=== PATIENT | male | born 1960 | race Caucasian/White ===

== ENCOUNTER → 2018-05-26 08:01 | Outpatient (CLI) | payer OTHER, SELFPAY ==
[2018-05-26 10:13] LABS: Alanine Aminotransferase 40 IU/L (21-72); Albumin 4.3 g/dL (3.5-5.0); Albumin Globulin Ratio 1.4 (1.0-2.8); Alkaline Phosphatase 97 U/L (38-126); Aspartate Aminotransferase 27 IU/L (17-59); BUN Creatinine Ratio 13.3 (6-22); Bilirubin Total 0.9 mg/dL (0.2-1.3); Blood Urea Nitrogen 12 mg/dL (9-20); Calcium 9.3 mg/dL (8.4-10.2); Carbon Dioxide 33 mmol/L (22-32); Chloride 102 mmol/L (98-107); Cholesterol 224 mg/dL (140-199); Estimated Glomerular Filt Rate > 60.0 mL/min (>60); Glucose 118 mg/dL (70-100); HDL Cholesterol 35 mg/dL (40-60); HEMOLYSIS < 15 (0-50); LDL Cholesterol Calculated 136 mg/dL (<100); Potassium 4.2 mmol/L (3.4-5.1); Sodium 144 mmol/L (137-145); Total Protein 7.3 g/dL (6.3-8.2); Triglycerides 265 mg/dL (35-150)
[2018-05-26 10:30] LABS: Free T4, Direct Thyroxine 0.53 ng/dL (0.78-2.19)
== END ==
PROVIDERS: PCP Physician Assistant; Visit Provider Physician Assistant
DX: E03.9 Hypothyroidism, unspecified (principal); E78.2 Mixed hyperlipidemia
CPT/HCPCS: 36415; 80053; 80061; 84439; 84443

== ENCOUNTER → 2018-07-20 07:01 | Outpatient (CLI) | payer OTHER, SELFPAY ==
[2018-07-20 10:51] LABS: Cholesterol 175 mg/dL (140-199); Glucose 104 mg/dL (70-100); HDL Cholesterol 31 mg/dL (40-60); LDL Cholesterol Calculated 96 mg/dL (<100); Triglycerides 242 mg/dL (35-150)
[2018-07-20 11:16] LABS: Thyroid Stimulating Hormone 1.93 uIU/mL (0.47-4.68)
== END ==
PROVIDERS: PCP Physician Assistant; Visit Provider Physician Assistant
DX: E78.2 Mixed hyperlipidemia (principal); E03.9 Hypothyroidism, unspecified
CPT/HCPCS: 36415; 80061; 82947; 84443

== ENCOUNTER → 2018-12-27 13:09 | Outpatient (CLI) | payer OTHER, SELFPAY ==
--- NOTE | 2018-12-27 13:11 | DI.RAD.S_ITS ---
PROCEDURE: FL BARIUM SWALLOW W SPEECH INDICATIONS: Dysphagia liquids and solids TECHNIQUE: Examination was conducted in conjunction with speech pathology per standard protocol. In the lateral projection, filming was performed of the patient swallowing. AP projection filming may also be performed with patient swallowing. COMPARISON: None. FINDINGS: Function: The oral preparatory phase appears normal, with proper containment. The subsequent oral propulsive phase, pharyngeal phase, and esophageal phase of swallowing also appear normal with all proffered substances. A few instances of flash laryngeal penetration. No definite tracheal aspiration. There was mild vallecular pooling. There was normal passage of a calibrated barium tablet into the stomach. Morphology: No cricopharyngeal bar is identified. No cervical esophageal webs. No Zenker's diverticulum. No strictures. IMPRESSION: Occasional flash laryngeal penetration Dictated by: Zhen Wilson M.D. on 12/27/2018 at 15:08 Approved by: Zhen Wilson M.D. on 12/27/2018 at 15:09
--- NOTE | 2018-12-27 18:32 | ST.SWALLOW ---
Care Team Visit Care Team Role Provider Type Yashira Chambers PA-C Attending Provider Advanced Outbound Sales Representative Primary Care Provider Specialty: Medical Address: [address] [place] [address], [id number] Email: [email or web address] Modified Barium Swallow Study ACTIVITIES DIRECTOR Modified Barium Swallow Study Start: 12/27/18 14:13 Freq: Status: Active Protocol: Document 12/27/18 14:14 LNK (Rec: 12/27/18 14:52 LNK [email or web address]) Modified Barium Swallow Study Total Time Visit Start Time 01:30 Visit Stop Time 14:00 Total Visit Minutes 30 Referral Referring Physician Yashira Chambers PA-C Reason for Referral dysphagia Setting Setting Outpatient Care Patient Information Identification Type Name Other Patient History Pt is a 58 year old male who presented for a Modified Barium Swallow Study at the referral of Yashira Chambers PA-C . Pt described difficulty with swallowing solids. He described a sticking sensation in his throat with episodes of lettuce, pills or meats getting stuck to where he is unable to breathe and he begins to panic. He also described liquids not being swallowed, then coughing all of the liquids out at once. Pt noted that this has been ongoing for at least 10 years and it seems to be progressively worsened over the years. The pt described that he was having things checked out as he recently lost 3 family member to cancer: his father to lung, brain and neck cancer , his mother to colon cancer and his brother to esophageal cancer. Subjective Observations Pt was seated in the floroscopy chair Patient Positioning Position View Lat-A/P Imaging Lateral View Textures Administered Trials Presented Thin Liquid via Spoon Thin Liquid via Cup Regular Textures Barium Tablet Oral Phase Source: MBSIMP (TM) (C) Bolus Specific Scoring Grid Lip Closure WFL A/P Lingual Propulsion Delay No Oral Residue Minimal Impairment Residue Clearing WFL Nasal Regurgitation No: Pt did c/o of occasional nasal regurgitation Pharyngeal Phase Source: MBSIMP (TM) (C) Bolus Specific Scoring Grid Soft Palate Elevation WFL Residue Along the Tongue Base Yes Clearance of Residue Along Tongue Base WFL Laryngeal Elevation WFL Anterior Hyoid Movement WFL Epiglottic Range of Motion WFL Vallecular Residue Yes Clearance of Vallecular Residue WFL Laryngeal Vestibular Closure WFL Pharyngeal Stripping Wave WFL Pharyngeal Contraction WFL Posterior Pharyngeal Wall Residue No Upper Esophageal Sphincter Opening WFL Residue in the Pyriform Sinuses unable to visualize Esophageal Clearance Upright Position WFL Pharyngoesophageal Backflow Observed No Additional Pharyngeal Phase Observations Pt's pharyngeal phase demonstrated some premature spillage to the valleculla observed. Vallecular pooling was observed. Flash penetration into the laryngeal vestibule occurred with no overt aspiration. Periodically throughout the MBS the pt indicated that he was feeling something stuck in his throat, consistently pointing to the area near the thyroid notch. A/P View Textures Administered Trials Presented Thin Liquid via Spoon Regular Textures Barium Tablet A/P View Observations Pharyngeal Contraction WFL Esophageal Function Slowed Clearing Esophageal Clearance Upright Position Minimal Impairment Additional Observations Observation of liquid and solid esophageal clearing appeared to be functional. The barium tablet was observed to pass through the lower third of the esophagus, stopping for ~10 seconds, then passing into the stomach Clinical Impressions Dysphagia Type No apparent oral or pharyngeal phases of dysphagia Findings The pt presented with oral and pharyngeal phases of swallowing that were observed to be WFL. However, the pt was c/o something sticking in his throat several times during the assessment. Given the pt's family history of cancer, and losing three family members to cancer, the pt is concerned. He has reported that he has had episodes of being unable to breath when eating with panic. He appears to be anxious regarding these episodes. It is recommended that the pt be referred for GI consult as well as ENT consult. Possible etiologies, may be PVCD vs esophageal phase dysphagia. Possibly a referral for further imaging of the upper pharynx to s/o anatomical anomalies. Oupatient ST is recommended for laryngopharyngeal exercises, safe swallow strategies and further assessment as needed. Rehabilitation Potential Excellent Patient Appropriate for Therapy Yes Recommendations Diet Liquids Order Thin Diet Order Regular Medication Recommendation Whole in Carrier Comments Pt reports that he only takes medications in a carrier Treatment Plan Therapy Recommendations Outpatient Speech Therapy Recommended Referrals GI Consult ENT Consult Additional Recommendations/Comments Reviewed the findings and recommendations with the patient, who indicated he understood.
== END ==
PROVIDERS: PCP Physician Assistant; Visit Provider Physician Assistant
DX: R13.10 Dysphagia, unspecified (principal)
CPT/HCPCS: 74230; 92611

== ENCOUNTER → 2019-01-11 10:01 | Outpatient (CLI) | payer OTHER, SELFPAY ==
[2019-01-13 21:24] LABS: Sex Hormone Binding Globulin 26 nmol/L (22-77); Testosterone, Bioavailable 78.3 ng/dL (110.0-575.0); Testosterone, Total 263 ng/dL (250-1100); Testosterone,Free 40.6 pg/mL (46.0-224.0)
== END ==
PROVIDERS: PCP Physician Assistant; Visit Provider Physician Assistant
DX: R79.89 Other specified abnormal findings of blood chemistry (principal)
CPT/HCPCS: 36415; 82040; 84270; 84403

== ENCOUNTER 2019-01-24 13:13 | Outpatient (RCR) | payer OTHER, SELFPAY ==
--- NOTE | 2019-06-01 14:12 | ST.OPDS ---
Care Team Visit Care Team Role Provider Type Yashira Chambers PA-C Attending Provider Advanced Plant And Machinery Valuer Primary Care Provider Address: [address] [place] [address], [id number] MOTORCYCLE REPAIR SHOP SUPERVISOR Treatment Note MOTORCYCLE REPAIR SHOP SUPERVISOR Treatment Note Start: 01/24/19 15:28 Freq: Status: Active Protocol: Document 06/01/19 14:08 DENNIS (Rec: 06/01/19 14:09 DENNIS [email or web address]) Speech Pathology Treatment Note Visit Information Plan of Care Dates 01/24/19 - 04/18/19 Insurance Information [employer] $40 copay Visit Type Note Type Discharge Summary General Information General Information 58-yr-old male who complains of sticking sensation with oral intake (solids, liquids and pills), resulting in discomfort and frequent fear of choking. Baseline diet is regular texture and thin liquids; however, the pt avoids foods such as salad and bread and requires pills in yogurt d/t swallow difficulties. He reported swallow difficulties began about 10 yrs ago and have worsened in the last 2-3 years , increasing his anxiety with oral intake. Modified Barium Swallow Study was performed which revealed generally normal swallow function with no significant pharyngeal residue and normal esophageal transit time with exception of 13 mm barium tablet, which remained superior to LES for ~10 sec prior to emptying into stomach . Flash penetration without aspiration was noted. The pt was reported to c/o sticking sensation throughout the study without sticking or residue visually observed by MOTORCYCLE REPAIR SHOP SUPERVISOR/ Radiologist. Referrals were recommended to GI and ENT, and today the pt reports he has an appointment with ENT scheduled. He informed that he had been seeing a psychiatrist in the past but had a negative reaction to prescribed medications, and that now he uses natural supplements such as [place]'s Wart to ease anxiety with some success. The pt has a family history of cancer and has lost 3 family members to cancer, including a brother who from esophageal cancer, which increases the pt's concern. 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 Past medical history is also significant for GERD, arthritis, back pain, depression, hearing problems, psychological disorder including high anxiety, thyroid disorder, and TBI. Details of TBI were not obtained and will be obtained at next session. Additionally, the pt reports frequent flare up of nerves resulting in bodily twitches, which were observed 3-4 times during today's evaluation. He also reported episodes in which it feels like an earthquake is happening where the pt literally feels unbalanced as if the earth is moving below his feet. In response, he looks to see if others around him are concerned and often needs to hold onto something to balance himself. Subjective Observations/Patient Presentation This pt was last seen for clinical swallow evaluation on 01/24/19. Dysphagia therapy was recommended; however, the pt has not returned for treatment. He is discharged from skilled intervention at this time. Chief Complaint(s) Swallowing Objective Short Term Goals 1. The pt will perform safe swallow strategies, including breathing techniques to remain calm in presence of sticking sensation, to reduce anxiety with oral intake and reduce risk of aspiration. Mcc Goals 1. The pt will perform swallow exercises independently to improve function of swallow mechanism to reduce sticking sensation and risk of aspiration. 2. The pt will tolerate regular diet and thin liquids without overt s/sx of aspiration to maintain quality of life and meet his nutrition and hydration needs. Plan Therapy Recommendations Discharge from Speech Therapy
== END 2019-06-02 09:34 | disposition home or self-care (01) ==
LOC: SP 13:13
PROVIDERS: PCP Physician Assistant; Visit Provider Physician Assistant
DX: R13.10 Dysphagia, unspecified (principal)
CPT/HCPCS: 92526; 92610

== ENCOUNTER → 2019-04-26 06:49 | Outpatient (CLI) | payer OTHER, SELFPAY ==
[2019-04-29 15:29] LABS: Prolactin 10.1 ng/mL (3.7-17.9)
== END ==
PROVIDERS: PCP Physician Assistant; Visit Provider Urology
DX: R79.89 Other specified abnormal findings of blood chemistry (principal)
CPT/HCPCS: 36415; 83001; 84146; 84153; 84403

== ENCOUNTER → 2019-05-02 07:15 | Outpatient (CLI) | payer OTHER, SELFPAY | PROVIDERS: Family Provider Physician Assistant; PCP Physician Assistant; Visit Provider Urology | DX: E29.1 Testicular hypofunction (principal) | CPT/HCPCS: 36415 ==

== ENCOUNTER → 2019-05-11 07:28 | Outpatient (CLI) | payer OTHER, SELFPAY | PROVIDERS: Family Provider Physician Assistant; PCP Physician Assistant; Visit Provider Urology | DX: E29.1 Testicular hypofunction (principal) | CPT/HCPCS: 84402 ==

== ENCOUNTER → 2019-07-12 07:08 | Outpatient (CLI) | payer OTHER, SELFPAY ==
[2019-07-12 08:52] LABS: Alanine Aminotransferase 37 IU/L (21-72); Albumin 4.1 g/dL (3.5-5.0); Albumin Globulin Ratio 1.4 (1.0-2.8); Alkaline Phosphatase 103 U/L (38-126); Aspartate Aminotransferase 27 IU/L (17-59); BUN Creatinine Ratio 16.3 (6-22); Bilirubin Total 0.8 mg/dL (0.2-1.3); Blood Urea Nitrogen 13 mg/dL (9-20); Carbon Dioxide 30 mmol/L (22-32); Chloride 104 mmol/L (98-107); Cholesterol 175 mg/dL (140-199); Estimated Glomerular Filt Rate > 60.0 mL/min (>60); Glucose 131 mg/dL (70-100); HDL Cholesterol 32 mg/dL (40-60); HEMOLYSIS < 15 (0-50); LDL Cholesterol Calculated 92 mg/dL (<100); Potassium 4.3 mmol/L (3.4-5.1); Sodium 143 mmol/L (137-145); Total Protein 7.1 g/dL (6.3-8.2); Triglycerides 253 mg/dL (35-150)
[2019-07-12 09:13] LABS: Thyroid Stimulating Hormone 3.24 uIU/mL (0.47-4.68)
== END ==
PROVIDERS: PCP Physician Assistant; Visit Provider Physician Assistant
DX: E03.9 Hypothyroidism, unspecified (principal); E78.5 Hyperlipidemia, unspecified
CPT/HCPCS: 36415; 80053; 80061; 84443

== ENCOUNTER → 2019-07-16 08:30 | Outpatient (CLI) | payer OTHER, SELFPAY ==
[2019-07-16 09:25] LABS: Hemoglobin A1C% w Est Avg Glu 5.8 % (4.0-6.0)
[2019-07-16 09:29] LABS: Glucose 119 mg/dL (70-100)
== END ==
PROVIDERS: PCP Physician Assistant; Visit Provider Physician Assistant
DX: R73.01 Impaired fasting glucose (principal)
CPT/HCPCS: 82947; 83036

== ENCOUNTER → 2019-10-31 09:33 | Outpatient (CLI) | payer MEDICARE, MEDICAID, SELFPAY ==
[2019-10-31 11:42] LABS: Thyroid Stimulating Hormone 6.87 uIU/mL (0.47-4.68)
== END ==
PROVIDERS: PCP Physician Assistant; Visit Provider Physician Assistant
DX: E03.9 Hypothyroidism, unspecified (principal); R63.5 Abnormal weight gain
CPT/HCPCS: 36415; 84443

== ENCOUNTER → 2019-11-15 08:25 | Outpatient (CLI) | payer MEDICARE, MEDICAID, SELFPAY ==
[2019-11-15 09:32] LABS: Hematocrit 43.7 % (41-53); Hemoglobin 15.6 g/dL (13.5-17.5)
[2019-11-15 09:55] LABS: Cholesterol 172 mg/dL (140-199); HDL Cholesterol 29 mg/dL (40-60); LDL Cholesterol Calculated 92 mg/dL (<100); Triglycerides 257 mg/dL (35-150)
== END ==
PROVIDERS: PCP Physician Assistant; Visit Provider Urology
DX: E29.1 Testicular hypofunction (principal); R63.5 Abnormal weight gain
CPT/HCPCS: 36415; 80061; 84402; 84403; 85014; 85018

== ENCOUNTER → 2019-12-26 08:55 | Outpatient (CLI) | payer MEDICARE, MEDICAID, SELFPAY ==
[2019-12-26 10:34] LABS: Thyroid Stimulating Hormone 0.29 uIU/mL (0.47-4.68)
== END ==
PROVIDERS: PCP Physician Assistant; Referring Provider Physician Assistant; Visit Provider Physician Assistant
DX: R79.89 Other specified abnormal findings of blood chemistry (principal); E03.9 Hypothyroidism, unspecified
CPT/HCPCS: 36415; 84443

== ENCOUNTER → 2020-05-05 08:20 | Outpatient (CLI) | payer MEDICARE, SELFPAY ==
[2020-05-05 09:35] LABS: Hematocrit 45.3 % (41-53); Hemoglobin 15.6 g/dL (13.5-17.5); Mean Corpuscular HGB Conc 34.5 % (30-36); Mean Corpuscular Hemoglobin 30.1 PG (26-34); Mean Corpuscular Volume 87.4 fL (80-100); Platelet Count 228 X10^3/uL (150-400); Red Blood Cell Count 5.19 X10^6/uL (4.5-5.9); Red Cell Distribution Width 13.4 % (11.6-14.8); White Blood Cell Count 8.5 X10^3/uL (4.5-11.0)
[2020-05-05 09:42] LABS: Alanine Aminotransferase 30 IU/L (<50); Albumin 4.3 g/dL (3.5-5.0); Albumin Globulin Ratio 1.6 (1.0-2.8); Alkaline Phosphatase 128 U/L (38-126); Aspartate Aminotransferase 27 IU/L (17-59); BUN Creatinine Ratio 14.6 (6-22); Blood Urea Nitrogen 12 mg/dL (9-20); Calcium 9.4 mg/dL (8.4-10.2); Carbon Dioxide 32 mmol/L (22-32); Chloride 103 mmol/L (98-107); Cholesterol 167 mg/dL (140-199); Estimated Glomerular Filt Rate > 60.0 mL/min (>60); Globulin 2.7 g/dL (1.7-4.1); Glucose 139 mg/dL (80-110); HDL Cholesterol 27 mg/dL (40-60); HEMOLYSIS < 15 (0-50); LDL Cholesterol Calculated 94 mg/dL (<100); Potassium 4.4 mmol/L (3.4-5.1); Sodium 141 mmol/L (137-145); Triglycerides 228 mg/dL (35-150)
[2020-05-05 09:54] LABS: Free T4, Direct Thyroxine 0.94 ng/dL (0.78-2.19)
[2020-05-05 10:08] LABS: Thyroid Stimulating Hormone 0.948 uIU/mL (0.47-4.68)
== END ==
PROVIDERS: PCP Nurse Practitioner Family; Referring Provider Nurse Practitioner Family; Visit Provider Nurse Practitioner Family
DX: E03.9 Hypothyroidism, unspecified (principal); E78.2 Mixed hyperlipidemia; R03.0 Elevated blood-pressure reading, without diagnosis of hypertension
CPT/HCPCS: 36415; 80053; 80061; 84439; 84443; 85027

== ENCOUNTER → 2020-06-20 07:50 | Outpatient (CLI) | payer MEDICARE, MEDICAID, SELFPAY ==
[2020-06-20 09:05] LABS: Hemoglobin A1C% w Est Avg Glu 6.2 % (4.0-6.0)
[2020-06-20 09:28] LABS: Alkaline Phosphatase 118 U/L (38-126)
== END ==
PROVIDERS: PCP Nurse Practitioner Family; Referring Provider Nurse Practitioner Family; Visit Provider Nurse Practitioner Family
DX: R74.8 Abnormal levels of other serum enzymes (principal); R73.09 Other abnormal glucose
CPT/HCPCS: 36415; 83036; 84075

== ENCOUNTER → 2021-01-14 07:18 | Outpatient (CLI) | payer MEDICARE, MEDICAID, SELFPAY ==
[2021-01-14 07:54] LABS: Hematocrit 44.8 % (41-53); Hemoglobin 15.4 g/dL (13.5-17.5)
[2021-01-14 08:35] LABS: Cholesterol 187 mg/dL (140-199); HDL Cholesterol 36 mg/dL (40-60); LDL Cholesterol Calculated 106 mg/dL (<100); Triglycerides 226 mg/dL (35-150)
[2021-01-14 09:04] LABS: Prostate Specific Antigen 2.37 ng/mL (0.10-4.00)
[2021-01-17 12:09] LABS: Percent Free Testosterone 3.34 % (1.50-4.20); Testosterone Free 6.15 ng/dL (5.00-21.00)
== END ==
PROVIDERS: PCP Nurse Practitioner Family; Referring Provider Urology; Visit Provider Urology
DX: E29.1 Testicular hypofunction (principal)
CPT/HCPCS: 36415; 80061; 84153; 84402; 84403; 85014; 85018

== ENCOUNTER → 2021-01-16 07:45 | Outpatient (CLI) | payer MEDICARE, MEDICAID, SELFPAY ==
[2021-01-16] MEDS: COVID-19 VACC #1, MRNA(MOD) 100 MCG/0.5 ML VIAL IM (07:52)
== END ==
PROVIDERS: PCP Nurse Practitioner Family; Visit Provider Internal Medicine
DX: Z23 Encounter for immunization (principal)
CPT/HCPCS: 0011A; 91301

== ENCOUNTER → 2021-02-13 07:46 | Outpatient (CLI) | payer MEDICARE, MEDICAID, SELFPAY ==
[2021-02-13] MEDS: COVID-19 VACC #2, MRNA(MOD) 100 MCG/0.5 ML VIAL IM (07:52)
== END ==
PROVIDERS: PCP Nurse Practitioner Family; Visit Provider Internal Medicine
DX: Z23 Encounter for immunization (principal)
CPT/HCPCS: 0012A; 91301

== ENCOUNTER → 2021-04-04 11:07 | Outpatient (CLI) | payer MEDICARE, MEDICAID, SELFPAY ==
[2021-04-04 11:56] LABS: Hematocrit 46.2 % (41-53); Hemoglobin 15.9 g/dL (13.5-17.5); Mean Corpuscular HGB Conc 34.3 % (30-36); Mean Corpuscular Hemoglobin 29.7 PG (26-34); Mean Corpuscular Volume 86.5 fL (80-100); Platelet Count 240 X10^3/uL (150-400); Red Blood Cell Count 5.34 X10^6/uL (4.5-5.9); White Blood Cell Count 8.5 X10^3/uL (4.5-11.0)
[2021-04-04 12:15] LABS: Hemoglobin A1C% w Est Avg Glu 6.2 % (4.0-6.0)
[2021-04-04 12:42] LABS: Alanine Aminotransferase 33 IU/L (<50); Albumin 4.3 g/dL (3.5-5.0); Albumin Globulin Ratio 1.4 (1.0-2.8); Alkaline Phosphatase 117 U/L (38-126); Aspartate Aminotransferase 28 IU/L (17-59); BUN Creatinine Ratio 18.5 (6-22); Bilirubin Total 0.8 mg/dL (0.2-1.3); Blood Urea Nitrogen 15 mg/dL (9-20); Calcium 9.3 mg/dL (8.4-10.2); Carbon Dioxide 26 mmol/L (22-32); Chloride 105 mmol/L (98-107); Cholesterol 174 mg/dL (140-199); Estimated Glomerular Filt Rate > 60.0 mL/min (>60); Glucose 116 mg/dL (80-110); HDL Cholesterol 38 mg/dL (40-60); HEMOLYSIS < 15 (0-50); LDL Cholesterol Calculated 99 mg/dL (<100); Potassium 4.2 mmol/L (3.4-5.1); Sodium 141 mmol/L (137-145); Total Protein 7.3 g/dL (6.3-8.2); Triglycerides 183 mg/dL (35-150)
[2021-04-04 12:59] LABS: Free T4, Direct Thyroxine 0.88 ng/dL (0.78-2.19)
[2021-04-04 13:14] LABS: Thyroid Stimulating Hormone 3.16 uIU/mL (0.47-4.68)
== END ==
PROVIDERS: PCP Nurse Practitioner Family; Referring Provider Nurse Practitioner Family; Visit Provider Nurse Practitioner Family
DX: Z00.00 Encounter for general adult medical examination without abnormal findings (principal); E03.9 Hypothyroidism, unspecified; R73.09 Other abnormal glucose; E78.2 Mixed hyperlipidemia; R73.03 Prediabetes
CPT/HCPCS: 36415; 80053; 80061; 83036; 84439; 84443; 85027

== ENCOUNTER 2021-06-17 08:15 | Outpatient (RCR) | payer MEDICARE, MEDICAID, SELFPAY ==
--- NOTE | 2021-05-22 16:45 | PT.OIE ---
Current Diagnoses Other specified disorders of muscle (05/22/21) Difficulty in walking, not elsewhere classified (05/22/21) Past Medical History (Last Updated 04/04/21 @ 13:39 by JONO Mckenzie) Anxiety Chronic back pain (1975) Colon polyps (2015) Depression Eczema Elevated alkaline phosphatase level Elevated glucose Generalized headaches GERD (gastroesophageal reflux disease) Hamstring tightness of right lower extremity History of surgery on arm (2010) Hx of brain damage (1959) Hyperlipemia Hyperthyroidism Hypertriglyceridemia Insomnia Obstructive sleep apnea of adult Prediabetes (06/2020) Skin tag Sleep apnea Snoring Vertigo (2016) Past Surgical History (Last Reviewed 12/09/19 @ 05:42 by Patsy Altman MD) History of surgery on arm (2010) Status post knee surgery (2005) Status post knee surgery (2011) Visit Care Team Role Provider Type JONO Mckenzie Attending Provider Advanced Zinc Skimmer Primary Care Provider Referring Provider Specialty: Family Practice Address: [address] [place] [address] Email: [email or web address] Physical Therapy Initial Evaluation PT-OP-A Visit Information Start: 05/15/21 10:12 Freq: Status: Active Protocol: Document 05/22/21 16:45 AW (Rec: 05/22/21 17:22 AW [email or web address]) Out-Patient Physical Therapy Visit Information Visit Information Visit Type Initial Evaluation Visit Start Time 16:00 Visit Stop Time 16:45 Total Visit Minutes 45 Visit Number 1 Number of SHEET METAL ASSEMBLER Visits 0 Evaluation Information Evaluation Date 05/22/21 Precautions Precautions TBI, memory impairment PT-OP-B Current Condition Start: 05/15/21 10:12 Freq: Status: Active Protocol: Document 05/22/21 16:45 AW (Rec: 05/22/21 16:50 AW [id number]) Current Condition History of Current Condition Onset Date 1.5 years Current Complaints R posterior thigh pain History of Current Condition Pt reports frequent posterior thigh pain which is often worse with standing > 30 minutes or sitting for long periods. He describes a tight ball of muscle in the distal lateral hamstring musculature . He typically does not feel this pain while lying down. A chiropractor used an activator along the painful area and pt had relief for < 1 hour. When he is feeling the pain, it is like a spasm or like I was repeatedly punched. Pt thinks he may have twisted his right knee badly a few times but does not recall any particular incident that could have precipitated his pain. He has tried biofreeze with no relief . Alleve helped temporarily. Ice or heat helps for a little bit. Prior Treatments and Tests - Arthroscopic surgery R knee 9 years ago, left knee years before that. 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 Treatment Goals Patient/Caregiver Goals Be able to manage pain without medication. Wants tools to manage and prevent pain. 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 Current Functional Impairments (Reported) Functional Limitations- Mobility/Gait Difficulty getting in and out of his travel trailer. There are 3 steep steps up with a handle on the outside. He has particular trouble going down the stairs; he frequently descends backwards so he can hold on to the handle. Personal Factors Other Personal Factors That May Effect (-) TBI, impaired memory Therapy/Recovery (+) Motivated to participate (+) Positive prior experience with PT for shoulder dysfunction. PT-OP-C Subjective Start: 05/15/21 10:12 Freq: Status: Active Protocol: Document 05/22/21 16:45 AW (Rec: 05/22/21 17:22 AW [email or web address]) Patient Questionnaires Lower Extremity Functional Scale LEFS Score 31 LEFS Impairment 60 to 79% Impaired (Score 17- 31) OP-PT Pain Assessment Pain Assessment Grid Paper Pain Assessment Grid Completed Yes: See copy scanned to EMR Home Pain Medication Use Pain Medications Used Yes: Pt uses Alleve occasionally but prefers to avoid it. PT-OP-G Mobility & Gait Start: 05/15/21 10:12 Freq: Status: Active Protocol: Document 05/22/21 16:45 AW (Rec: 05/23/21 13:00 AW [email or web address]) OP Mobility Evaluation Functional Movements Squats Pt is able but with excessive forward knee excursion and poor control of descent, positive Viola's sign on return from 1/3 reps. OP Gait Assessment Gait Gait Assistance Required: Independent Distance (Feet) 100 Comments Gait Comments Pt ambulates with notable left foot scuff on 90% of steps and decreased RLE stance time. Gait characterized by heavy footfalls. PT-OP-K Range of Motion Start: 05/15/21 10:12 Freq: Status: Active Protocol: Document 05/22/21 16:45 AW (Rec: 05/23/21 13:00 AW [email or web address]) Knee Goniometric Range of Motion Knee Right Patient Position Supine Flexion Active (degrees) 130 Flexion Passive (degrees) 135 Extension Active (degrees) 8 Extension Passive (degrees) 5 Comments lacking 6 degrees extension actively Left Patient Position Supine Flexion Active (degrees) 130 Flexion Passive (degrees) 135 Extension Active (degrees) 6 Extension Passive (degrees) 3 Comments lacking 6 degrees extension actively Knee ROM Limitations Comments hard end feel bilaterally PT-OP-L Special Tests Start: 05/23/21 14:14 Freq: Status: Active Protocol: Document 05/22/21 16:45 AW (Rec: 05/23/21 14:21 AW [email or web address]) Special Tests Knee Special Tests Straight Leg Raise Comments HS lacks 15-20 degrees extension with hip at 90 degrees bilaterally. Jigar's Test Comments Thigh is parallel to table bilaterally. Thessaly Test 5 Degrees Test Results vaguely positive RLE Comments Pt reports slight feeling of instability but no clicking with rotation on fixed tibia. ligament stress testing Comments All stress testing WNL. No evidence of instability PT-OP-M Strength Start: 05/15/21 10:12 Freq: Status: Active Protocol: Document 05/22/21 16:45 AW (Rec: 05/23/21 14:11 AW [email or web address]) Hip Strength Hip Manual Muscle Testing Right Flexion (L2) 4- Good- Extension (S1) 4- Good- Abduction 4- Good- External Rotation 4 Good Internal Rotation 4 Good Left Flexion (L2) 4+ Good+ Extension (S1) 4 Good Abduction 4 Good External Rotation 4+ Good+ Internal Rotation 4+ Good+ Knee Strength Knee Manual Muscle Testing Right Flexion (S2) 4+ Good+ Extension (L3) 4 Good Left Flexion (S2) 5 Normal Extension (L3) 4+ Good+ Ankle/Foot Strength Ankle and Foot Manual Muscle Testing Right Dorsiflexion (L4) 4+ Good+ Plantarflexion (S1) 4 Good Inversion 4 Good Eversion (S1) 4+ Good+ Left Dorsiflexion (L4) 5 Normal Plantarflexion (S1) 4 Good Inversion 4+ Good+ Eversion (S1) 4+ Good+ PT-OP-Q Treatments Start: 05/15/21 10:12 Freq: Status: Active Protocol: Document 05/22/21 16:45 AW (Rec: 05/23/21 14:14 AW [email or web address]) Manual Therapy Treatment Soft Tissue Mobilization R HS, gastroc Mobilization Type Rolling,Strumming,Sustained Pressure,Trigger Point Release Intensity/Depth Moderate Body Position Prone Comments Pt tolerated moderate pressure for TP release distal R hamstring laterally with improvement in pain symptoms immediately following treatment. PT-OP-T Assessment and Plan Start: 05/15/21 10:12 Freq: Status: Active Protocol: Document 05/22/21 16:45 AW (Rec: 05/23/21 14:29 AW [email or web address]) Physical Therapy Assessment Rehab Potential Rehabilitation Potential Good Evaluation Complexity Number of Personal Factors/Comorbidities 3 or More Number of Body Systems Impaired 3 Clinical Presentation at Evaluation Stable Impairments Impairments Activity Tolerance,Balance, Functional Activities, Functional Mobility,Gait,Pain, ROM,Sensation,Soft Tissue Mobility,Strength Other Concerns Barriers to Rehabilitation TBI, impaired memory Goals Four Impairment strength Short Term Goal (STG) Pt will perform SLS BLE 10 seconds without increase in baseline pain STG Duration 4 weeks - 06/19/21 Dry Heat Room Attendant Goal (LTG) Pt will complete 5 Time Sit to pigskin trimmer 12 seconds or less to demonstrate improved strength and stability. LTG Duration 8 weeks - 07/17/21 Three Impairment ROM Fdc Goal (LTG) Pt will improve B knee extension ROM to neutral for improved gait mechanics. LTG Duration 8 weeks - 07/17/21 Two Impairment LEFS STG Duration 4 weeks - 06/19/21 Dry Heat Room Attendant Goal (LTG) Pt will improve LEFS score from 31 to 40 or greater to demonstrate improved daily function. LTG Duration 8 weeks - 07/17/21 One Impairment lacks HEP Short Term Goal (STG) Pt will be independent with HEP for support of therapy services provided in clinic. STG Duration 4 weeks - 06/19/21 Dry Heat Room Attendant Goal (LTG) Pt will be independent with HEP for pain management and prevention. LTG Duration 8 weeks - 07/17/21 Assessment Summary Assessment Cipriano is a 60 yo man with history of TBI and trauma who is seen in outpatient physical therapy with complaints of distal posterior right thigh pain and bilateral knee pain. He presents with painful right knee and hip ROM and lacks full knee extension bilaterally. Hip and knee strength are limited by guarding behaviors. Clinical exam is vaguely consistent with right meniscus pathology and pt does report occasional clicking and locking of the right knee. He has moderate to severe tone in distal right hamstring. Pt is expected to benefit from skilled physical therapy to address these impairments along with education in pain science to alleviate RLE pain, to prevent further injury, and to improve daily function. Physical Therapy Plan Frequency and Duration Frequency of Treatment 1-2x/week Duration of Treatment 2 months Plan of Care Start Date 05/22/21 Plan of Care End Date 07/22/21 Therapeutic Interventions Therapeutic Interventions Balance Training,Gait Training ,Home Exercise Program,Joint Mobilizations,Manual Therapy, Neuromuscular Re-education, Patient/Caregiver Education, Self-Care/Home Management, Sensory Integration,Soft Tissue Mobilization,Taping, Therapeutic Activities, Therapeutic Exercises Modalities Cold Pack/Ice Massage,Electric Stimulation,Hot Packs Next Visit Focus/Plan Next Note Type Treatment Note Next Visit Plan Initiate knee ROM and strengthening, hip strength.
--- NOTE | 2021-05-23 16:33 | PT.OPPOC ---
Physical, Occupational & Speech Therapy At [facility] Current Diagnoses Other specified disorders of muscle (05/22/21) Difficulty in walking, not elsewhere classified (05/22/21) Visit Care Team Role Provider Type JONO Mckenzie Attending Provider Advanced Machine Tool Rebuilder Primary Care Provider Referring Provider Specialty: Family Practice Address: [address] [place] [address], [facility] Email: [email or web address] Plan Of Care PT-OP-T Assessment and Plan Start: 05/15/21 10:12 Freq: Status: Active Protocol: Document 05/22/21 16:45 AW (Rec: 05/23/21 14:29 AW [email or web address]) Physical Therapy Assessment Rehab Potential Rehabilitation Potential Good Evaluation Complexity Number of Personal Factors/Comorbidities 3 or More Number of Body Systems Impaired 3 Clinical Presentation at Evaluation Stable Impairments Impairments Activity Tolerance,Balance, Functional Activities, Functional Mobility,Gait,Pain, ROM,Sensation,Soft Tissue Mobility,Strength Other Concerns Barriers to Rehabilitation TBI, impaired memory Goals Four Impairment strength Short Term Goal (STG) Pt will perform SLS BLE 10 seconds without increase in baseline pain STG Duration 4 weeks - 06/19/21 Residential Goal (LTG) Pt will complete 5 Time Sit to dock superintendent 12 seconds or less to demonstrate improved strength and stability. LTG Duration 8 weeks - 07/17/21 Three Impairment ROM Residential Goal (LTG) Pt will improve B knee extension ROM to neutral for improved gait mechanics. LTG Duration 8 weeks - 07/17/21 Two Impairment LEFS STG Duration 4 weeks - 06/19/21 Vice President Of Customer Service Goal (LTG) Pt will improve LEFS score from 31 to 40 or greater to demonstrate improved daily function. LTG Duration 8 weeks - 07/17/21 One Impairment lacks HEP Short Term Goal (STG) Pt will be independent with HEP for support of therapy services provided in clinic. STG Duration 4 weeks - 06/19/21 Residential Goal (LTG) Pt will be independent with HEP for pain management and prevention. LTG Duration 8 weeks - 07/17/21 Assessment Summary Assessment Cipriano is a 60 yo man with history of TBI and trauma who is seen in outpatient physical therapy with complaints of distal posterior right thigh pain and bilateral knee pain. He presents with painful right knee and hip ROM and lacks full knee extension bilaterally. Hip and knee strength are limited by guarding behaviors. Clinical exam is vaguely consistent with right meniscus pathology and pt does report occasional clicking and locking of the right knee. He has moderate to severe tone in distal right hamstring. Pt is expected to benefit from skilled physical therapy to address these impairments along with education in pain science to alleviate RLE pain, to prevent further injury, and to improve daily function. Physical Therapy Plan Frequency and Duration Frequency of Treatment 1-2x/week Duration of Treatment 2 months Plan of Care Start Date 05/22/21 Plan of Care End Date 07/22/21 Therapeutic Interventions Therapeutic Interventions Balance Training,Gait Training ,Home Exercise Program,Joint Mobilizations,Manual Therapy, Neuromuscular Re-education, Patient/Caregiver Education, Self-Care/Home Management, Sensory Integration,Soft Tissue Mobilization,Taping, Therapeutic Activities, Therapeutic Exercises Modalities Cold Pack/Ice Massage,Electric Stimulation,Hot Packs Next Visit Focus/Plan Next Note Type Treatment Note Next Visit Plan Initiate knee ROM and strengthening, hip strength. Plan of Care Dates Plan of Care Start Date 05/22/21 Plan of Care End Date 07/22/21 Electronically Signed by: Zuleika Molina PT 05/23/21 0045 Please Sign and Return: I have reviewed this Plan of Care and certify that the skilled therapy services above are required to meet the patient?s needs. Physician Signature Date Printed Name and Credentials Clinical Instructor Signature Printed Name and Credentials
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
--- NOTE | 2021-05-31 12:55 | PT.OTN ---
Current Diagnoses Other specified disorders of muscle (05/31/21) Difficulty in walking, not elsewhere classified (05/31/21) Physical Therapy Treatment Note PT-OP-A Visit Information Start: 05/15/21 10:12 Freq: Status: Active Protocol: Document 05/31/21 12:12 MB (Rec: 05/31/21 12:54 MB [id number]) Out-Patient Physical Therapy Visit Information Visit Information Visit Type Treatment Note Visit Note Medicare Medicaid AARP 02/04 before KX Visit Start Time 12:12 Visit Stop Time 12:52 Total Visit Minutes 40 Visit Number 4 Precautions Precautions TBI, memory impairment PT-OP-B Current Condition Start: 05/15/21 10:12 Freq: Status: Active Protocol: Document 05/22/21 16:45 AW (Rec: 05/22/21 16:50 AW [id number]) Current Condition History of Current Condition Onset Date 1.5 years Current Complaints R posterior thigh pain History of Current Condition Pt reports frequent posterior thigh pain which is often worse with standing > 30 minutes or sitting for long periods. He describes a tight ball of muscle in the distal lateral hamstring musculature . He typically does not feel this pain while lying down. A chiropractor used an activator along the painful area and pt had relief for < 1 hour. When he is feeling the pain, it is like a spasm or like I was repeatedly punched. Pt thinks he may have twisted his right knee badly a few times but does not recall any particular incident that could have precipitated his pain. He has tried biofreeze with no relief . Alleve helped temporarily. Ice or heat helps for a little bit. Prior Treatments and Tests - Arthroscopic surgery R knee 9 years ago, left knee years before that. 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 Treatment Goals Patient/Caregiver Goals Be able to manage pain without medication. Wants tools to manage and prevent pain. 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 Current Functional Impairments (Reported) Functional Limitations- Mobility/Gait Difficulty getting in and out of his travel trailer. There are 3 steep steps up with a handle on the outside. He has particular trouble going down the stairs; he frequently descends backwards so he can hold on to the handle. Personal Factors Other Personal Factors That May Effect (-) TBI, impaired memory Therapy/Recovery (+) Motivated to participate (+) Positive prior experience with PT for shoulder dysfunction. PT-OP-C Subjective Start: 05/15/21 10:12 Freq: Status: Active Protocol: Document 05/31/21 12:12 MB (Rec: 05/31/21 12:54 MB [id number]) OP-PT Subjective Patient Comments Patient Comments Pt states that the manual work was really helpful. He likes the racquet ball massage as well. Moving around is helpful . PT-OP-G Mobility & Gait Start: 05/15/21 10:12 Freq: Status: Active Protocol: Document 05/22/21 16:45 AW (Rec: 05/23/21 13:00 AW [email or web address]) OP Mobility Evaluation Functional Movements Squats Pt is able but with excessive forward knee excursion and poor control of descent, positive [place]'s sign on return from 1/3 reps. OP Gait Assessment Gait Gait Assistance Required: Independent Distance (Feet) 100 Comments Gait Comments Pt ambulates with notable left foot scuff on 90% of steps and decreased RLE stance time. Gait characterized by heavy footfalls. PT-OP-K Range of Motion Start: 05/15/21 10:12 Freq: Status: Active Protocol: Document 05/22/21 16:45 AW (Rec: 05/23/21 13:00 AW [email or web address]) Knee Goniometric Range of Motion Knee Right Patient Position Supine Flexion Active (degrees) 130 Flexion Passive (degrees) 135 Extension Active (degrees) 8 Extension Passive (degrees) 5 Comments lacking 6 degrees extension actively Left Patient Position Supine Flexion Active (degrees) 130 Flexion Passive (degrees) 135 Extension Active (degrees) 6 Extension Passive (degrees) 3 Comments lacking 6 degrees extension actively Knee ROM Limitations Comments hard end feel bilaterally PT-OP-L Special Tests Start: 05/23/21 14:14 Freq: Status: Active Protocol: Document 05/22/21 16:45 AW (Rec: 05/23/21 14:21 AW [email or web address]) Special Tests Knee Special Tests Straight Leg Raise Comments HS lacks 15-20 degrees extension with hip at 90 degrees bilaterally. Jigar's Test Comments Thigh is parallel to table bilaterally. Thessaly Test 5 Degrees Test Results vaguely positive RLE Comments Pt reports slight feeling of instability but no clicking with rotation on fixed tibia. ligament stress testing Comments All stress testing WNL. No evidence of instability PT-OP-M Strength Start: 05/15/21 10:12 Freq: Status: Active Protocol: Document 05/22/21 16:45 AW (Rec: 05/23/21 14:11 AW [email or web address]) Hip Strength Hip Manual Muscle Testing Right Flexion (L2) 4- Good- Extension (S1) 4- Good- Abduction 4- Good- External Rotation 4 Good Internal Rotation 4 Good Left Flexion (L2) 4+ Good+ Extension (S1) 4 Good Abduction 4 Good External Rotation 4+ Good+ Internal Rotation 4+ Good+ Knee Strength Knee Manual Muscle Testing Right Flexion (S2) 4+ Good+ Extension (L3) 4 Good Left Flexion (S2) 5 Normal Extension (L3) 4+ Good+ Ankle/Foot Strength Ankle and Foot Manual Muscle Testing Right Dorsiflexion (L4) 4+ Good+ Plantarflexion (S1) 4 Good Inversion 4 Good Eversion (S1) 4+ Good+ Left Dorsiflexion (L4) 5 Normal Plantarflexion (S1) 4 Good Inversion 4+ Good+ Eversion (S1) 4+ Good+ PT-OP-Q Treatments Start: 05/15/21 10:12 Freq: Status: Active Protocol: Document 05/31/21 12:12 MB (Rec: 05/31/21 12:54 MB [id number]) Cardio Equipment Recumbent Elliptical ([employer]) Duration (Minutes) 10 Resistance 3 Seat Position 9 Other UE and LE Therapeutic Exercises Sitting Exercises Clam Side bilateral Reps/Minutes 10 Comments Band around knees, glute squeeze first and then press out into band LAQ Sitting Exercise Name Band around ankles for strengthening Side bilateral Reps/Minutes 5 Comments Level 1 band, alternating, 5 AP at top of exercise QL stretch Side bilateral Comments Feet on floor and arm reaching up overhead Thoracic rotation Side bilateral Comments Breathing end-range to promote thoracic mobility Piriformis stretch Side bilateral Comments 30 sec hold B Hamstring stretch with toes up Side bilateral Comments 30 sec hold PT-OP-T Assessment and Plan Start: 05/15/21 10:12 Freq: Status: Active Protocol: Document 05/31/21 12:12 MB (Rec: 05/31/21 12:54 MB [id number]) Physical Therapy Assessment Rehab Potential Rehabilitation Potential Good Evaluation Complexity Number of Personal Factors/Comorbidities 3 or More Number of Body Systems Impaired 3 Clinical Presentation at Evaluation Stable Impairments Impairments Activity Tolerance,Balance, Functional Activities, Functional Mobility,Gait,Pain, ROM,Sensation,Soft Tissue Mobility,Strength Other Concerns Barriers to Rehabilitation TBI, impaired memory Goals Four Impairment strength Short Term Goal (STG) Pt will perform SLS BLE 10 seconds without increase in baseline pain STG Duration 4 weeks - 06/19/21 Admission Liaison Goal (LTG) Pt will complete 5 Time Sit to tanning solution maker 12 seconds or less to demonstrate improved strength and stability. LTG Duration 8 weeks - 07/17/21 Three Impairment ROM Assisted Goal (LTG) Pt will improve B knee extension ROM to neutral for improved gait mechanics. LTG Duration 8 weeks - 07/17/21 Two Impairment LEFS STG Duration 4 weeks - 06/19/21 Assisted Goal (LTG) Pt will improve LEFS score from 31 to 40 or greater to demonstrate improved daily function. LTG Duration 8 weeks - 07/17/21 One Impairment lacks HEP Short Term Goal (STG) Pt will be independent with HEP for support of therapy services provided in clinic. STG Duration 4 weeks - 06/19/21 Admission Liaison Goal (LTG) Pt will be independent with HEP for pain management and prevention. LTG Duration 8 weeks - 07/17/21 Assessment Summary Assessment Progressed sitting stretches and strengthening today and pt performs well. He states that exercises are helpful. Con't progression. Physical Therapy Plan Frequency and Duration Frequency of Treatment 1-2x/week Duration of Treatment 2 months Plan of Care Start Date 05/22/21 Plan of Care End Date 07/22/21 Therapeutic Interventions Therapeutic Interventions Balance Training,Gait Training ,Home Exercise Program,Joint Mobilizations,Manual Therapy, Neuromuscular Re-education, Patient/Caregiver Education, Self-Care/Home Management, Sensory Integration,Soft Tissue Mobilization,Taping, Therapeutic Activities, Therapeutic Exercises Modalities Cold Pack/Ice Massage,Electric Stimulation,Hot Packs Next Visit Focus/Plan Next Note Type Treatment Note Next Visit Plan Ongoing manual work, progress core and standing strengthening exercises, Multifidi strengthening in standing with heel raises. Try sitting on therapy ball, body mechanics training
--- NOTE | 2021-06-05 12:58 | PT.OTN ---
Current Diagnoses Other specified disorders of muscle (06/05/21) Difficulty in walking, not elsewhere classified (06/05/21) Physical Therapy Treatment Note PT-OP-A Visit Information Start: 05/15/21 10:12 Freq: Status: Active Protocol: Document 06/05/21 12:15 MB (Rec: 06/05/21 12:55 MB [id number]) Out-Patient Physical Therapy Visit Information Visit Information Visit Type Treatment Note Visit Note Medicare Medicaid AARP 03/06 before KX Visit Start Time 12:15 Visit Stop Time 12:57 Total Visit Minutes 42 Visit Number 5 Precautions Precautions TBI, memory impairment PT-OP-B Current Condition Start: 05/15/21 10:12 Freq: Status: Active Protocol: Document 05/22/21 16:45 AW (Rec: 05/22/21 16:50 AW [id number]) Current Condition History of Current Condition Onset Date 1.5 years Current Complaints R posterior thigh pain History of Current Condition Pt reports frequent posterior thigh pain which is often worse with standing > 30 minutes or sitting for long periods. He describes a tight ball of muscle in the distal lateral hamstring musculature . He typically does not feel this pain while lying down. A chiropractor used an activator along the painful area and pt had relief for < 1 hour. When he is feeling the pain, it is like a spasm or like I was repeatedly punched. Pt thinks he may have twisted his right knee badly a few times but does not recall any particular incident that could have precipitated his pain. He has tried biofreeze with no relief . Alleve helped temporarily. Ice or heat helps for a little bit. Prior Treatments and Tests - Arthroscopic surgery R knee 9 years ago, left knee years before that. 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 Treatment Goals Patient/Caregiver Goals Be able to manage pain without medication. Wants tools to manage and prevent pain. 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 Current Functional Impairments (Reported) Functional Limitations- Mobility/Gait Difficulty getting in and out of his travel trailer. There are 3 steep steps up with a handle on the outside. He has particular trouble going down the stairs; he frequently descends backwards so he can hold on to the handle. Personal Factors Other Personal Factors That May Effect (-) TBI, impaired memory Therapy/Recovery (+) Motivated to participate (+) Positive prior experience with PT for shoulder dysfunction. PT-OP-C Subjective Start: 05/15/21 10:12 Freq: Status: Active Protocol: Document 06/05/21 12:15 MB (Rec: 06/05/21 12:55 MB [id number]) OP-PT Subjective Patient Comments Patient Comments Pt states that he is feeling so much better. PT-OP-G Mobility & Gait Start: 05/15/21 10:12 Freq: Status: Active Protocol: Document 05/22/21 16:45 AW (Rec: 05/23/21 13:00 AW [email or web address]) OP Mobility Evaluation Functional Movements Squats Pt is able but with excessive forward knee excursion and poor control of descent, positive [place]'s sign on return from 1/3 reps. OP Gait Assessment Gait Gait Assistance Required: Independent Distance (Feet) 100 Comments Gait Comments Pt ambulates with notable left foot scuff on 90% of steps and decreased RLE stance time. Gait characterized by heavy footfalls. PT-OP-K Range of Motion Start: 05/15/21 10:12 Freq: Status: Active Protocol: Document 05/22/21 16:45 AW (Rec: 05/23/21 13:00 AW [email or web address]) Knee Goniometric Range of Motion Knee Right Patient Position Supine Flexion Active (degrees) 130 Flexion Passive (degrees) 135 Extension Active (degrees) 8 Extension Passive (degrees) 5 Comments lacking 6 degrees extension actively Left Patient Position Supine Flexion Active (degrees) 130 Flexion Passive (degrees) 135 Extension Active (degrees) 6 Extension Passive (degrees) 3 Comments lacking 6 degrees extension actively Knee ROM Limitations Comments hard end feel bilaterally PT-OP-L Special Tests Start: 05/23/21 14:14 Freq: Status: Active Protocol: Document 05/22/21 16:45 AW (Rec: 05/23/21 14:21 AW [email or web address]) Special Tests Knee Special Tests Straight Leg Raise Comments HS lacks 15-20 degrees extension with hip at 90 degrees bilaterally. Jigar's Test Comments Thigh is parallel to table bilaterally. Thessaly Test 5 Degrees Test Results vaguely positive RLE Comments Pt reports slight feeling of instability but no clicking with rotation on fixed tibia. ligament stress testing Comments All stress testing WNL. No evidence of instability PT-OP-M Strength Start: 05/15/21 10:12 Freq: Status: Active Protocol: Document 05/22/21 16:45 AW (Rec: 05/23/21 14:11 AW [email or web address]) Hip Strength Hip Manual Muscle Testing Right Flexion (L2) 4- Good- Extension (S1) 4- Good- Abduction 4- Good- External Rotation 4 Good Internal Rotation 4 Good Left Flexion (L2) 4+ Good+ Extension (S1) 4 Good Abduction 4 Good External Rotation 4+ Good+ Internal Rotation 4+ Good+ Knee Strength Knee Manual Muscle Testing Right Flexion (S2) 4+ Good+ Extension (L3) 4 Good Left Flexion (S2) 5 Normal Extension (L3) 4+ Good+ Ankle/Foot Strength Ankle and Foot Manual Muscle Testing Right Dorsiflexion (L4) 4+ Good+ Plantarflexion (S1) 4 Good Inversion 4 Good Eversion (S1) 4+ Good+ Left Dorsiflexion (L4) 5 Normal Plantarflexion (S1) 4 Good Inversion 4+ Good+ Eversion (S1) 4+ Good+ PT-OP-Q Treatments Start: 05/15/21 10:12 Freq: Status: Active Protocol: Document 06/05/21 12:15 MB (Rec: 06/05/21 12:55 MB [id number]) Cardio Equipment Recumbent Elliptical ([employer]) Duration (Minutes) 16 Resistance 4 Seat Position 10 Other UE and LE Therapeutic Exercises Supine Exercises Core progression Supine Exercise Name Abd drawing in, pelvic tilt and spine flat first and set for all Side bilateral Reps/Minutes Many reps all ex, cues to slow down Comments Knee rocking, HS, mini march, bridge, knee fall out, band around knees Self-Care/Home Management Treatment Education Other Education Body mechanics education and handouts. Engage core and glutes, keep objects close to self, assess task to be done, pushing is better than pulling , golfer's lift, best car position with hips higher than knees, lumbar support and chair scooted for to decrease hamstring pull PT-OP-T Assessment and Plan Start: 05/15/21 10:12 Freq: Status: Active Protocol: Document 06/05/21 12:15 MB (Rec: 06/05/21 12:55 MB [id number]) Physical Therapy Assessment Rehab Potential Rehabilitation Potential Good Evaluation Complexity Number of Personal Factors/Comorbidities 3 or More Number of Body Systems Impaired 3 Clinical Presentation at Evaluation Stable Impairments Impairments Activity Tolerance,Balance, Functional Activities, Functional Mobility,Gait,Pain, ROM,Sensation,Soft Tissue Mobility,Strength Other Concerns Barriers to Rehabilitation TBI, impaired memory Goals Four Impairment strength Short Term Goal (STG) Pt will perform SLS BLE 10 seconds without increase in baseline pain STG Duration 4 weeks - 06/19/21 Delivery Engineer Goal (LTG) Pt will complete 5 Time Sit to laboratory apparatus glass grinder 12 seconds or less to demonstrate improved strength and stability. LTG Duration 8 weeks - 07/17/21 Three Impairment ROM Halfway Goal (LTG) Pt will improve B knee extension ROM to neutral for improved gait mechanics. LTG Duration 8 weeks - 07/17/21 Two Impairment LEFS STG Duration 4 weeks - 06/19/21 Halfway Goal (LTG) Pt will improve LEFS score from 31 to 40 or greater to demonstrate improved daily function. LTG Duration 8 weeks - 07/17/21 One Impairment lacks HEP Short Term Goal (STG) Pt will be independent with HEP for support of therapy services provided in clinic. STG Duration 4 weeks - 06/19/21 Delivery Engineer Goal (LTG) Pt will be independent with HEP for pain management and prevention. LTG Duration 8 weeks - 07/17/21 Assessment Summary Assessment Progressed core exercises today, body mechanics education and training. Con't per plan today. Ed pt to check out using recumbent stepper at the pool gym. Physical Therapy Plan Frequency and Duration Frequency of Treatment 1-2x/week Duration of Treatment 2 months Plan of Care Start Date 05/22/21 Plan of Care End Date 07/22/21 Therapeutic Interventions Therapeutic Interventions Balance Training,Gait Training ,Home Exercise Program,Joint Mobilizations,Manual Therapy, Neuromuscular Re-education, Patient/Caregiver Education, Self-Care/Home Management, Sensory Integration,Soft Tissue Mobilization,Taping, Therapeutic Activities, Therapeutic Exercises Modalities Cold Pack/Ice Massage,Electric Stimulation,Hot Packs Next Visit Focus/Plan Next Note Type Treatment Note Next Visit Plan Ongoing manual work, standing strengthening exercises, multifidi strengthening in standing with heel raises.
--- NOTE | 2021-06-07 12:58 | PT.OTN ---
Current Diagnoses Other specified disorders of muscle (06/07/21) Difficulty in walking, not elsewhere classified (06/07/21) Physical Therapy Treatment Note PT-OP-A Visit Information Start: 05/15/21 10:12 Freq: Status: Active Protocol: Document 06/07/21 12:15 MB (Rec: 06/07/21 12:58 MB [id number]) Out-Patient Physical Therapy Visit Information Visit Information Visit Type Treatment Note Visit Note Medicare Medicaid AARP 04/06 before KX Visit Start Time 12:15 Visit Stop Time 12:55 Total Visit Minutes 40 Visit Number 6 Precautions Precautions TBI, memory impairment PT-OP-B Current Condition Start: 05/15/21 10:12 Freq: Status: Active Protocol: Document 05/22/21 16:45 AW (Rec: 05/22/21 16:50 AW [id number]) Current Condition History of Current Condition Onset Date 1.5 years Current Complaints R posterior thigh pain History of Current Condition Pt reports frequent posterior thigh pain which is often worse with standing > 30 minutes or sitting for long periods. He describes a tight ball of muscle in the distal lateral hamstring musculature . He typically does not feel this pain while lying down. A chiropractor used an activator along the painful area and pt had relief for < 1 hour. When he is feeling the pain, it is like a spasm or like I was repeatedly punched. Pt thinks he may have twisted his right knee badly a few times but does not recall any particular incident that could have precipitated his pain. He has tried biofreeze with no relief . Alleve helped temporarily. Ice or heat helps for a little bit. Prior Treatments and Tests - Arthroscopic surgery R knee 9 years ago, left knee years before that. 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 Treatment Goals Patient/Caregiver Goals Be able to manage pain without medication. Wants tools to manage and prevent pain. 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 Current Functional Impairments (Reported) Functional Limitations- Mobility/Gait Difficulty getting in and out of his travel trailer. There are 3 steep steps up with a handle on the outside. He has particular trouble going down the stairs; he frequently descends backwards so he can hold on to the handle. Personal Factors Other Personal Factors That May Effect (-) TBI, impaired memory Therapy/Recovery (+) Motivated to participate (+) Positive prior experience with PT for shoulder dysfunction. PT-OP-C Subjective Start: 05/15/21 10:12 Freq: Status: Active Protocol: Document 06/07/21 12:15 MB (Rec: 06/07/21 12:58 MB [id number]) OP-PT Subjective Patient Comments Patient Comments Pt states that he is feeling a lot better. He is excited to think about the recumbent stepper at the pool gym. He realizes he has a tendency for the dark side and is going to try to be more active. PT-OP-G Mobility & Gait Start: 05/15/21 10:12 Freq: Status: Active Protocol: Document 05/22/21 16:45 AW (Rec: 05/23/21 13:00 AW [email or web address]) OP Mobility Evaluation Functional Movements Squats Pt is able but with excessive forward knee excursion and poor control of descent, positive El's sign on return from 1/3 reps. OP Gait Assessment Gait Gait Assistance Required: Independent Distance (Feet) 100 Comments Gait Comments Pt ambulates with notable left foot scuff on 90% of steps and decreased RLE stance time. Gait characterized by heavy footfalls. PT-OP-K Range of Motion Start: 05/15/21 10:12 Freq: Status: Active Protocol: Document 05/22/21 16:45 AW (Rec: 05/23/21 13:00 AW [email or web address]) Knee Goniometric Range of Motion Knee Right Patient Position Supine Flexion Active (degrees) 130 Flexion Passive (degrees) 135 Extension Active (degrees) 8 Extension Passive (degrees) 5 Comments lacking 6 degrees extension actively Left Patient Position Supine Flexion Active (degrees) 130 Flexion Passive (degrees) 135 Extension Active (degrees) 6 Extension Passive (degrees) 3 Comments lacking 6 degrees extension actively Knee ROM Limitations Comments hard end feel bilaterally PT-OP-L Special Tests Start: 05/23/21 14:14 Freq: Status: Active Protocol: Document 05/22/21 16:45 AW (Rec: 05/23/21 14:21 AW [email or web address]) Special Tests Knee Special Tests Straight Leg Raise Comments HS lacks 15-20 degrees extension with hip at 90 degrees bilaterally. Jigar's Test Comments Thigh is parallel to table bilaterally. Thessaly Test 5 Degrees Test Results vaguely positive RLE Comments Pt reports slight feeling of instability but no clicking with rotation on fixed tibia. ligament stress testing Comments All stress testing WNL. No evidence of instability PT-OP-M Strength Start: 05/15/21 10:12 Freq: Status: Active Protocol: Document 05/22/21 16:45 AW (Rec: 05/23/21 14:11 AW [email or web address]) Hip Strength Hip Manual Muscle Testing Right Flexion (L2) 4- Good- Extension (S1) 4- Good- Abduction 4- Good- External Rotation 4 Good Internal Rotation 4 Good Left Flexion (L2) 4+ Good+ Extension (S1) 4 Good Abduction 4 Good External Rotation 4+ Good+ Internal Rotation 4+ Good+ Knee Strength Knee Manual Muscle Testing Right Flexion (S2) 4+ Good+ Extension (L3) 4 Good Left Flexion (S2) 5 Normal Extension (L3) 4+ Good+ Ankle/Foot Strength Ankle and Foot Manual Muscle Testing Right Dorsiflexion (L4) 4+ Good+ Plantarflexion (S1) 4 Good Inversion 4 Good Eversion (S1) 4+ Good+ Left Dorsiflexion (L4) 5 Normal Plantarflexion (S1) 4 Good Inversion 4+ Good+ Eversion (S1) 4+ Good+ PT-OP-Q Treatments Start: 05/15/21 10:12 Freq: Status: Active Protocol: Document 06/07/21 12:15 MB (Rec: 06/07/21 12:58 MB [id number]) Cardio Equipment Recumbent Elliptical ([employer]) Duration (Minutes) 10 Resistance 4 Seat Position 10 Other UE and LE Manual Therapy Treatment Other Other Manual Treatments Pt kneeling on wedge and resting over plinth: STM B thoracolumbar paraspinals, QL, TFL, hip rotators, glute max Pt prone: STM B hamstrings and gastroc. Most tension left LB paraspinals and QL and right hamstrings PT-OP-T Assessment and Plan Start: 05/15/21 10:12 Freq: Status: Active Protocol: Document 06/07/21 12:15 MB (Rec: 06/07/21 12:58 MB [id number]) Physical Therapy Assessment Rehab Potential Rehabilitation Potential Good Evaluation Complexity Number of Personal Factors/Comorbidities 3 or More Number of Body Systems Impaired 3 Clinical Presentation at Evaluation Stable Impairments Impairments Activity Tolerance,Balance, Functional Activities, Functional Mobility,Gait,Pain, ROM,Sensation,Soft Tissue Mobility,Strength Other Concerns Barriers to Rehabilitation TBI, impaired memory Goals Four Impairment strength Short Term Goal (STG) Pt will perform SLS BLE 10 seconds without increase in baseline pain STG Duration 4 weeks - 06/19/21 Snf Goal (LTG) Pt will complete 5 Time Sit to linotype worker 12 seconds or less to demonstrate improved strength and stability. LTG Duration 8 weeks - 07/17/21 Three Impairment ROM Buggyman Goal (LTG) Pt will improve B knee extension ROM to neutral for improved gait mechanics. LTG Duration 8 weeks - 07/17/21 Two Impairment LEFS STG Duration 4 weeks - 06/19/21 Snf Goal (LTG) Pt will improve LEFS score from 31 to 40 or greater to demonstrate improved daily function. LTG Duration 8 weeks - 07/17/21 One Impairment lacks HEP Short Term Goal (STG) Pt will be independent with HEP for support of therapy services provided in clinic. STG Duration 4 weeks - 06/19/21 [place]uggyman Goal (LTG) Pt will be independent with HEP for pain management and prevention. LTG Duration 8 weeks - 07/17/21 Assessment Summary Assessment Manual work today and pt responds well. Progress exercises next treatment date. Physical Therapy Plan Frequency and Duration Frequency of Treatment 1-2x/week Duration of Treatment 2 months Plan of Care Start Date 05/22/21 Plan of Care End Date 07/22/21 Therapeutic Interventions Therapeutic Interventions Balance Training,Gait Training ,Home Exercise Program,Joint Mobilizations,Manual Therapy, Neuromuscular Re-education, Patient/Caregiver Education, Self-Care/Home Management, Sensory Integration,Soft Tissue Mobilization,Taping, Therapeutic Activities, Therapeutic Exercises Modalities Cold Pack/Ice Massage,Electric Stimulation,Hot Packs Next Visit Focus/Plan Next Note Type Treatment Note Next Visit Plan Ongoing manual work, standing strengthening exercises, multifidi strengthening in standing with heel raises.
--- NOTE | 2021-06-11 09:18 | PT.OTN ---
Current Diagnoses Other specified disorders of muscle (06/11/21) Difficulty in walking, not elsewhere classified (06/11/21) Physical Therapy Treatment Note PT-OP-A Visit Information Start: 05/15/21 10:12 Freq: Status: Active Protocol: Document 06/11/21 08:15 MB (Rec: 06/11/21 09:18 MB [id number]) Out-Patient Physical Therapy Visit Information Visit Information Visit Type Treatment Note Visit Note Medicare Medicaid AARP 05/06 before KX Visit Start Time 08:15 Visit Stop Time 09:15 Total Visit Minutes 60 Visit Number 7 Precautions Precautions TBI, memory impairment PT-OP-B Current Condition Start: 05/15/21 10:12 Freq: Status: Active Protocol: Document 05/22/21 16:45 AW (Rec: 05/22/21 16:50 AW [id number]) Current Condition History of Current Condition Onset Date 1.5 years Current Complaints R posterior thigh pain History of Current Condition Pt reports frequent posterior thigh pain which is often worse with standing > 30 minutes or sitting for long periods. He describes a tight ball of muscle in the distal lateral hamstring musculature . He typically does not feel this pain while lying down. A chiropractor used an activator along the painful area and pt had relief for < 1 hour. When he is feeling the pain, it is like a spasm or like I was repeatedly punched. Pt thinks he may have twisted his right knee badly a few times but does not recall any particular incident that could have precipitated his pain. He has tried biofreeze with no relief . Alleve helped temporarily. Ice or heat helps for a little bit. Prior Treatments and Tests - Arthroscopic surgery R knee 9 years ago, left knee years before that. 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 Treatment Goals Patient/Caregiver Goals Be able to manage pain without medication. Wants tools to manage and prevent pain. 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 Current Functional Impairments (Reported) Functional Limitations- Mobility/Gait Difficulty getting in and out of his travel trailer. There are 3 steep steps up with a handle on the outside. He has particular trouble going down the stairs; he frequently descends backwards so he can hold on to the handle. Personal Factors Other Personal Factors That May Effect (-) TBI, impaired memory Therapy/Recovery (+) Motivated to participate (+) Positive prior experience with PT for shoulder dysfunction. PT-OP-C Subjective Start: 05/15/21 10:12 Freq: Status: Active Protocol: Document 06/11/21 08:15 MB (Rec: 06/11/21 09:18 MB [id number]) OP-PT Subjective Patient Comments Patient Comments Pt states that he is feeling good. He palpated the back of his right thigh and noticed some lumps that he would like PT to check out. PT-OP-G Mobility & Gait Start: 05/15/21 10:12 Freq: Status: Active Protocol: Document 05/22/21 16:45 AW (Rec: 05/23/21 13:00 AW [email or web address]) OP Mobility Evaluation Functional Movements Squats Pt is able but with excessive forward knee excursion and poor control of descent, positive El's sign on return from 1/3 reps. OP Gait Assessment Gait Gait Assistance Required: Independent Distance (Feet) 100 Comments Gait Comments Pt ambulates with notable left foot scuff on 90% of steps and decreased RLE stance time. Gait characterized by heavy footfalls. PT-OP-K Range of Motion Start: 05/15/21 10:12 Freq: Status: Active Protocol: Document 05/22/21 16:45 AW (Rec: 05/23/21 13:00 AW [email or web address]) Knee Goniometric Range of Motion Knee Right Patient Position Supine Flexion Active (degrees) 130 Flexion Passive (degrees) 135 Extension Active (degrees) 8 Extension Passive (degrees) 5 Comments lacking 6 degrees extension actively Left Patient Position Supine Flexion Active (degrees) 130 Flexion Passive (degrees) 135 Extension Active (degrees) 6 Extension Passive (degrees) 3 Comments lacking 6 degrees extension actively Knee ROM Limitations Comments hard end feel bilaterally PT-OP-L Special Tests Start: 05/23/21 14:14 Freq: Status: Active Protocol: Document 05/22/21 16:45 AW (Rec: 05/23/21 14:21 AW [email or web address]) Special Tests Knee Special Tests Straight Leg Raise Comments HS lacks 15-20 degrees extension with hip at 90 degrees bilaterally. Jigar's Test Comments Thigh is parallel to table bilaterally. Thessaly Test 5 Degrees Test Results vaguely positive RLE Comments Pt reports slight feeling of instability but no clicking with rotation on fixed tibia. ligament stress testing Comments All stress testing WNL. No evidence of instability PT-OP-M Strength Start: 05/15/21 10:12 Freq: Status: Active Protocol: Document 05/22/21 16:45 AW (Rec: 05/23/21 14:11 AW [email or web address]) Hip Strength Hip Manual Muscle Testing Right Flexion (L2) 4- Good- Extension (S1) 4- Good- Abduction 4- Good- External Rotation 4 Good Internal Rotation 4 Good Left Flexion (L2) 4+ Good+ Extension (S1) 4 Good Abduction 4 Good External Rotation 4+ Good+ Internal Rotation 4+ Good+ Knee Strength Knee Manual Muscle Testing Right Flexion (S2) 4+ Good+ Extension (L3) 4 Good Left Flexion (S2) 5 Normal Extension (L3) 4+ Good+ Ankle/Foot Strength Ankle and Foot Manual Muscle Testing Right Dorsiflexion (L4) 4+ Good+ Plantarflexion (S1) 4 Good Inversion 4 Good Eversion (S1) 4+ Good+ Left Dorsiflexion (L4) 5 Normal Plantarflexion (S1) 4 Good Inversion 4+ Good+ Eversion (S1) 4+ Good+ PT-OP-Q Treatments Start: 05/15/21 10:12 Freq: Status: Active Protocol: Document 06/11/21 08:15 MB (Rec: 06/11/21 09:18 MB [id number]) Cardio Equipment Recumbent Elliptical ([employer]) Duration (Minutes) 15 Resistance 4 Seat Position 10 Other UE and LE Therapeutic Exercises Standing Exercises Partial to full tandem standing Side bilateral Comments Back to corner Crab walking and backward walking with band Side bilateral Comments Level 2 band around ankles Heel raises with band pull Side bilateral Comments Level 2 band in doorway Manual Therapy Treatment Other Other Manual Treatments Pt kneeling on wedge and resting over plinth: STM B thoracolumbar paraspinals, QL, TFL, hip rotators, glute max Pt prone: STM B hamstrings and gastroc. Most tension left LB paraspinals and QL and right hamstrings PT-OP-T Assessment and Plan Start: 05/15/21 10:12 Freq: Status: Active Protocol: Document 06/11/21 08:15 MB (Rec: 06/11/21 09:18 MB [id number]) Physical Therapy Assessment Rehab Potential Rehabilitation Potential Good Evaluation Complexity Number of Personal Factors/Comorbidities 3 or More Number of Body Systems Impaired 3 Clinical Presentation at Evaluation Stable Impairments Impairments Activity Tolerance,Balance, Functional Activities, Functional Mobility,Gait,Pain, ROM,Sensation,Soft Tissue Mobility,Strength Other Concerns Barriers to Rehabilitation TBI, impaired memory Goals Four Impairment strength Short Term Goal (STG) Pt will perform SLS BLE 10 seconds without increase in baseline pain STG Duration 4 weeks - 06/19/21 Skilled Nursing Goal (LTG) Pt will complete 5 Time Sit to operations intern 12 seconds or less to demonstrate improved strength and stability. LTG Duration 8 weeks - 07/17/21 Three Impairment ROM Dining Room Tables Set Up Attendant Goal (LTG) Pt will improve B knee extension ROM to neutral for improved gait mechanics. LTG Duration 8 weeks - 07/17/21 Two Impairment LEFS STG Duration 4 weeks - 06/19/21 Dining Room Tables Set Up Attendant Goal (LTG) Pt will improve LEFS score from 31 to 40 or greater to demonstrate improved daily function. LTG Duration 8 weeks - 07/17/21 One Impairment lacks HEP Short Term Goal (STG) Pt will be independent with HEP for support of therapy services provided in clinic. STG Duration Met Skilled Nursing Goal (LTG) Pt will be independent with HEP for pain management and prevention. LTG Duration Met Assessment Summary Assessment Progressed strengthening and balance today. During treatment, pt opens up about nightmares and trouble sleeping and so will initiate EFT and B[place]yko breathing next treatment date as time allows given it is d/c date. Physical Therapy Plan Frequency and Duration Frequency of Treatment 1-2x/week Duration of Treatment 2 months Plan of Care Start Date 05/22/21 Plan of Care End Date 07/22/21 Therapeutic Interventions Therapeutic Interventions Balance Training,Gait Training ,Home Exercise Program,Joint Mobilizations,Manual Therapy, Neuromuscular Re-education, Patient/Caregiver Education, Self-Care/Home Management, Sensory Integration,Soft Tissue Mobilization,Taping, Therapeutic Activities, Therapeutic Exercises Modalities Cold Pack/Ice Massage,Electric Stimulation,Hot Packs Next Visit Focus/Plan Next Note Type Discharge Summary Next Visit Plan EFT and B[place]yko breathing
--- NOTE | 2021-06-17 08:56 | PT.OTN ---
Current Diagnoses Other specified disorders of muscle (06/17/21) Difficulty in walking, not elsewhere classified (06/17/21) Physical Therapy Treatment Note PT-OP-A Visit Information Start: 05/15/21 10:12 Freq: Status: Active Protocol: Document 06/17/21 08:15 MB (Rec: 06/17/21 08:55 MB [id number]) Out-Patient Physical Therapy Visit Information Visit Information Visit Type Treatment Note Visit Note Medicare Medicaid AARP 06/06 before KX Visit Start Time 08:15 Visit Stop Time 08:55 Total Visit Minutes 40 Visit Number 8 Precautions Precautions TBI, memory impairment PT-OP-B Current Condition Start: 05/15/21 10:12 Freq: Status: Active Protocol: Document 05/22/21 16:45 AW (Rec: 05/22/21 16:50 AW [id number]) Current Condition History of Current Condition Onset Date 1.5 years Current Complaints R posterior thigh pain History of Current Condition Pt reports frequent posterior thigh pain which is often worse with standing > 30 minutes or sitting for long periods. He describes a tight ball of muscle in the distal lateral hamstring musculature . He typically does not feel this pain while lying down. A chiropractor used an activator along the painful area and pt had relief for < 1 hour. When he is feeling the pain, it is like a spasm or like I was repeatedly punched. Pt thinks he may have twisted his right knee badly a few times but does not recall any particular incident that could have precipitated his pain. He has tried biofreeze with no relief . Alleve helped temporarily. Ice or heat helps for a little bit. Prior Treatments and Tests - Arthroscopic surgery R knee 9 years ago, left knee years before that. 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 Treatment Goals Patient/Caregiver Goals Be able to manage pain without medication. Wants tools to manage and prevent pain. 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 Current Functional Impairments (Reported) Functional Limitations- Mobility/Gait Difficulty getting in and out of his travel trailer. There are 3 steep steps up with a handle on the outside. He has particular trouble going down the stairs; he frequently descends backwards so he can hold on to the handle. Personal Factors Other Personal Factors That May Effect (-) TBI, impaired memory Therapy/Recovery (+) Motivated to participate (+) Positive prior experience with PT for shoulder dysfunction. PT-OP-C Subjective Start: 05/15/21 10:12 Freq: Status: Active Protocol: Document 06/17/21 08:15 MB (Rec: 06/17/21 08:55 MB [id number]) OP-PT Subjective Patient Comments Patient Comments Pt states that he feels he is close to self-management stage . He does his exercises when he feels a twinge of symptoms. PT-OP-G Mobility & Gait Start: 05/15/21 10:12 Freq: Status: Active Protocol: Document 05/22/21 16:45 AW (Rec: 05/23/21 13:00 AW [email or web address]) OP Mobility Evaluation Functional Movements Squats Pt is able but with excessive forward knee excursion and poor control of descent, positive El's sign on return from 1/3 reps. OP Gait Assessment Gait Gait Assistance Required: Independent Distance (Feet) 100 Comments Gait Comments Pt ambulates with notable left foot scuff on 90% of steps and decreased RLE stance time. Gait characterized by heavy footfalls. PT-OP-K Range of Motion Start: 05/15/21 10:12 Freq: Status: Active Protocol: Document 05/22/21 16:45 AW (Rec: 05/23/21 13:00 AW [email or web address]) Knee Goniometric Range of Motion Knee Right Patient Position Supine Flexion Active (degrees) 130 Flexion Passive (degrees) 135 Extension Active (degrees) 8 Extension Passive (degrees) 5 Comments lacking 6 degrees extension actively Left Patient Position Supine Flexion Active (degrees) 130 Flexion Passive (degrees) 135 Extension Active (degrees) 6 Extension Passive (degrees) 3 Comments lacking 6 degrees extension actively Knee ROM Limitations Comments hard end feel bilaterally PT-OP-L Special Tests Start: 05/23/21 14:14 Freq: Status: Active Protocol: Document 05/22/21 16:45 AW (Rec: 05/23/21 14:21 AW [email or web address]) Special Tests Knee Special Tests Straight Leg Raise Comments HS lacks 15-20 degrees extension with hip at 90 degrees bilaterally. Jigar's Test Comments Thigh is parallel to table bilaterally. Thessaly Test 5 Degrees Test Results vaguely positive RLE Comments Pt reports slight feeling of instability but no clicking with rotation on fixed tibia. ligament stress testing Comments All stress testing WNL. No evidence of instability PT-OP-M Strength Start: 05/15/21 10:12 Freq: Status: Active Protocol: Document 05/22/21 16:45 AW (Rec: 05/23/21 14:11 AW [email or web address]) Hip Strength Hip Manual Muscle Testing Right Flexion (L2) 4- Good- Extension (S1) 4- Good- Abduction 4- Good- External Rotation 4 Good Internal Rotation 4 Good Left Flexion (L2) 4+ Good+ Extension (S1) 4 Good Abduction 4 Good External Rotation 4+ Good+ Internal Rotation 4+ Good+ Knee Strength Knee Manual Muscle Testing Right Flexion (S2) 4+ Good+ Extension (L3) 4 Good Left Flexion (S2) 5 Normal Extension (L3) 4+ Good+ Ankle/Foot Strength Ankle and Foot Manual Muscle Testing Right Dorsiflexion (L4) 4+ Good+ Plantarflexion (S1) 4 Good Inversion 4 Good Eversion (S1) 4+ Good+ Left Dorsiflexion (L4) 5 Normal Plantarflexion (S1) 4 Good Inversion 4+ Good+ Eversion (S1) 4+ Good+ PT-OP-Q Treatments Start: 05/15/21 10:12 Freq: Status: Active Protocol: Document 06/17/21 08:15 MB (Rec: 06/17/21 08:55 MB [id number]) Therapeutic Exercises Supine Exercises Butyeko breathing Supine Exercise Name Ed in purpose and theory and performed exercise 1 Comments See assessment for comments today Sitting Exercises EFT Sitting Exercise Name Ed in theory and performs with left hand, all points PT-OP-T Assessment and Plan Start: 05/15/21 10:12 Freq: Status: Active Protocol: Document 06/17/21 08:15 MB (Rec: 06/17/21 08:55 MB [id number]) Physical Therapy Assessment Rehab Potential Rehabilitation Potential Good Evaluation Complexity Number of Personal Factors/Comorbidities 3 or More Number of Body Systems Impaired 3 Clinical Presentation at Evaluation Stable Impairments Impairments Activity Tolerance,Balance, Functional Activities, Functional Mobility,Gait,Pain, ROM,Sensation,Soft Tissue Mobility,Strength Other Concerns Barriers to Rehabilitation TBI, impaired memory Goals Four Impairment strength Short Term Goal (STG) Pt will perform SLS BLE 10 seconds without increase in baseline pain 06/17/21: Pt states that he is doing a lot better putting his pants on and he is performing tandem balance exercise. PT does not give SLS as an exercise. STG Duration Partially Met Custodial Goal (LTG) Pt will complete 5 Time Sit to crayon painter 12 seconds or less to demonstrate improved strength and stability. 06/17/21: Pt performs 5 reps sit to stand without UE support in 12 sec today. LTG Duration Met Three Impairment ROM Oxyhydrogen Welder Goal (LTG) Pt will improve B knee extension ROM to neutral for improved gait mechanics. 06/17/21: Met LTG Duration Met Two Impairment LEFS Custodial Goal (LTG) Pt will improve LEFS score from 31 to 40 or greater to demonstrate improved daily function. 06/17/21: LEF score is 48/80 LTG Duration Surpassed Goal Assessment Summary Assessment Pt has met all PT goals since starting PT. These include balance, LEF, sit to stands, and HEP goals. He is feeling a lot better. Ed pt in EFT today and [place]ko breathing to help address parasympathetic system components to his symptoms. Ed pt in [place] breathing in supine today with head and neck supported. HR and O2 sats in left index before exercise: 63 BPM and 92 %. 1st rep: 21 sec, HR 64 BPM and sats 97%; 2nd rep: 23 sec, HR 64 BPM and sats 97%; 3rd rep: 21 sec and HR 63 BPM and sats 97%. Ed pt in diaphragm and he performs several reps of nasal breathing with diaphragm movement. 4th rep: 27 sec, HR 57 BPM, sats 97-98% . Pt feels confident to con't exercises at home. Will d/c PT .
== END 2021-06-19 13:24 | disposition home or self-care (01) ==
LOC: PHYS 08:15
PROVIDERS: PCP Nurse Practitioner Family; Referring Provider Nurse Practitioner Family; Visit Provider Nurse Practitioner Family
DX: M62.89 Other specified disorders of muscle (principal); R26.2 Difficulty in walking, not elsewhere classified
CPT/HCPCS: 97110; 97140; 97162; 97535

== ENCOUNTER → 2021-08-30 08:57 | Outpatient (CLI) | payer MEDICARE, MEDICAID, SELFPAY ==
[2021-08-30] MEDS: COVID-19 VACC #3, MRNA(MOD) 50 MCG/0.25 ML VIAL IM (09:03)
== END ==
PROVIDERS: PCP Nurse Practitioner Family; Visit Provider Internal Medicine
DX: Z23 Encounter for immunization (principal)
CPT/HCPCS: 0013A; 91301

== ENCOUNTER → 2021-09-26 09:18 | Outpatient (CLI) | payer MEDICARE, MEDICAID, SELFPAY ==
[2021-09-26 10:48] LABS: Hematocrit 46.6 % (41-53); Hemoglobin 16.1 g/dL (13.5-17.5); Mean Corpuscular HGB Conc 34.6 % (30-36); Mean Corpuscular Hemoglobin 30.3 PG (26-34); Mean Corpuscular Volume 87.5 fL (80-100); Platelet Count 71 X10^3/uL (150-400); Red Blood Cell Count 5.32 X10^6/uL (4.5-5.9); Red Cell Distribution Width 13.2 % (11.6-14.8); White Blood Cell Count 6.9 X10^3/uL (4.5-11.0)
[2021-09-26 11:03] LABS: Alanine Aminotransferase 34 IU/L (<50); Albumin 4.5 g/dL (3.5-5.0); Albumin Globulin Ratio 1.6 (1.0-2.8); Alkaline Phosphatase 100 U/L (38-126); Aspartate Aminotransferase 30 IU/L (17-59); BUN Creatinine Ratio 13.8 (6-22); Bilirubin Total 0.9 mg/dL (0.2-1.3); Blood Urea Nitrogen 11 mg/dL (9-20); Calcium 9.1 mg/dL (8.4-10.2); Carbon Dioxide 29 mmol/L (22-32); Chloride 102 mmol/L (98-107); Cholesterol 218 mg/dL (140-199); Estimated Glomerular Filt Rate > 60.0 mL/min (>60); Globulin 2.9 g/dL (1.7-4.1); Glucose 136 mg/dL (80-110); HDL Cholesterol 35 mg/dL (40-60); HEMOLYSIS 45 (0-50); LDL Cholesterol Calculated 134 mg/dL (<100); Potassium 4.2 mmol/L (3.4-5.1); Sodium 139 mmol/L (137-145); Total Protein 7.4 g/dL (6.3-8.2); Triglycerides 245 mg/dL (35-150)
[2021-09-26 11:19] LABS: Free T4, Direct Thyroxine 0.66 ng/dL (0.78-2.19)
[2021-09-26 11:33] LABS: Thyroid Stimulating Hormone 15.8 uIU/mL (0.47-4.68)
== END ==
PROVIDERS: PCP Nurse Practitioner Family; Referring Provider Nurse Practitioner Family; Visit Provider Nurse Practitioner Family
DX: E03.9 Hypothyroidism, unspecified (principal)
CPT/HCPCS: 36415; 80053; 80061; 84439; 84443; 85027

== ENCOUNTER → 2021-10-09 09:37 | Outpatient (CLI) | payer MEDICARE, MEDICAID, SELFPAY ==
[2021-10-09 11:18] LABS: Add Manual Diff / Slide Review NO; Basophils Absolute Auto 0 /uL (0-100); Basophils Percent Auto 0.6 % (0-2); Eosinophils Absolute Auto 100 /uL (0-450); Eosinophils Percent Auto 1.6 % (2-4); Hematocrit 44.6 % (41-53); Hemoglobin 15.7 g/dL (13.5-17.5); Lymphocytes Absolute Auto 3500 /uL (1100-4500); Lymphocytes Percent Auto 41.9 % (25-40); Mean Corpuscular HGB Conc 35.2 % (30-36); Mean Corpuscular Hemoglobin 30.3 PG (26-34); Mean Corpuscular Volume 86.3 fL (80-100); Monocytes Absolute Auto 800 /uL (0-900); Monocytes Percent Auto 9.6 % (3-14); Neutrophils Absolute Auto 3800 /uL (1500-7000); Neutrophils Percent Auto 46.3 % (50-75); Platelet Count 233 X10^3/uL (150-400); Red Blood Cell Count 5.17 X10^6/uL (4.5-5.9); Red Cell Distribution Width 13.1 % (11.6-14.8); White Blood Cell Count 8.3 X10^3/uL (4.5-11.0)
[2021-10-09 11:34] LABS: Hemoglobin A1C% w Est Avg Glu 6.1 % (4.0-6.0)
[2021-10-09 12:04] LABS: Free T4, Direct Thyroxine 1.24 ng/dL (0.78-2.19)
[2021-10-09 12:18] LABS: Thyroid Stimulating Hormone 5.24 uIU/mL (0.47-4.68)
== END ==
PROVIDERS: PCP Nurse Practitioner Family; Referring Provider Nurse Practitioner Family; Visit Provider Nurse Practitioner Family
DX: E03.9 Hypothyroidism, unspecified (principal); R73.03 Prediabetes; D69.6 Thrombocytopenia, unspecified
CPT/HCPCS: 36415; 83036; 84439; 84443; 85025

== ENCOUNTER → 2021-11-18 08:50 | Outpatient (CLI) | payer MEDICARE, MEDICAID, SELFPAY ==
[2021-11-18 09:38] LABS: Add Manual Diff / Slide Review NO; Basophils Absolute Auto 100 /uL (0-100); Basophils Percent Auto 1.1 % (0-2); Eosinophils Absolute Auto 200 /uL (0-450); Eosinophils Percent Auto 2.3 % (2-4); Lymphocytes Absolute Auto 3300 /uL (1100-4500); Mean Corpuscular HGB Conc 34.9 % (30-36); Mean Corpuscular Hemoglobin 30.3 PG (26-34); Mean Corpuscular Volume 86.9 fL (80-100); Monocytes Absolute Auto 800 /uL (0-900); Monocytes Percent Auto 11.2 % (3-14); Neutrophils Absolute Auto 2700 /uL (1500-7000); Neutrophils Percent Auto 38.4 % (50-75); Platelet Count 210 X10^3/uL (150-400); Red Blood Cell Count 4.95 X10^6/uL (4.5-5.9); Red Cell Distribution Width 13.3 % (11.6-14.8); White Blood Cell Count 7.1 X10^3/uL (4.5-11.0)
[2021-11-18 10:17] LABS: Alanine Aminotransferase 35 IU/L (<50); Albumin 4.1 g/dL (3.5-5.0); Albumin Globulin Ratio 1.5 (1.0-2.8); Alkaline Phosphatase 118 U/L (38-126); Aspartate Aminotransferase 27 IU/L (17-59); BUN Creatinine Ratio 12.8 (6-22); Bilirubin Total 0.6 mg/dL (0.2-1.3); Blood Urea Nitrogen 10 mg/dL (9-20); Carbon Dioxide 28 mmol/L (22-32); Chloride 106 mmol/L (98-107); Estimated Glomerular Filt Rate > 60.0 mL/min (>60); Globulin 2.8 g/dL (1.7-4.1); Glucose 159 mg/dL (80-110); HEMOLYSIS < 15 (0-50); Sodium 140 mmol/L (137-145); Total Protein 6.9 g/dL (6.3-8.2)
== END ==
PROVIDERS: PCP Nurse Practitioner Family; Referring Provider Physician Assistant; Visit Provider Physician Assistant
DX: B35.1 Tinea unguium (principal)
CPT/HCPCS: 36415; 80053; 85025

== ENCOUNTER → 2021-11-30 08:05 | Outpatient (CLI) | payer MEDICARE, MEDICAID, SELFPAY ==
[2021-11-30 09:58] LABS: Add Manual Diff / Slide Review NO; Basophils Absolute Auto 100 /uL (0-100); Basophils Percent Auto 0.8 % (0-2); Eosinophils Absolute Auto 200 /uL (0-450); Hematocrit 43.2 % (41-53); Hemoglobin 15.2 g/dL (13.5-17.5); Lymphocytes Absolute Auto 3500 /uL (1100-4500); Lymphocytes Percent Auto 47.4 % (25-40); Mean Corpuscular HGB Conc 35.3 % (30-36); Mean Corpuscular Hemoglobin 30.6 PG (26-34); Mean Corpuscular Volume 86.6 fL (80-100); Monocytes Absolute Auto 700 /uL (0-900); Monocytes Percent Auto 9.2 % (3-14); Neutrophils Absolute Auto 3000 /uL (1500-7000); Neutrophils Percent Auto 40.6 % (50-75); Platelet Count 251 X10^3/uL (150-400); Red Blood Cell Count 4.99 X10^6/uL (4.5-5.9); Red Cell Distribution Width 13.4 % (11.6-14.8); White Blood Cell Count 7.4 X10^3/uL (4.5-11.0)
[2021-11-30 10:45] LABS: Free T4, Direct Thyroxine 1.15 ng/dL (0.78-2.19)
[2021-11-30 10:59] LABS: Thyroid Stimulating Hormone 10.7 uIU/mL (0.47-4.68)
== END ==
PROVIDERS: PCP Nurse Practitioner Family; Referring Provider Physician Assistant; Visit Provider Physician Assistant
DX: E03.9 Hypothyroidism, unspecified (principal); B35.1 Tinea unguium
CPT/HCPCS: 36415; 84439; 84443; 85025

== ENCOUNTER → 2021-12-20 09:28 | Outpatient (CLI) | payer MEDICARE, MEDICAID, SELFPAY ==
[2021-12-20 10:24] LABS: Add Manual Diff / Slide Review NO; Basophils Absolute Auto 0 /uL (0-100); Basophils Percent Auto 0.6 % (0-2); Eosinophils Absolute Auto 100 /uL (0-450); Eosinophils Percent Auto 1.9 % (2-4); Hematocrit 42.8 % (41-53); Hemoglobin 14.9 g/dL (13.5-17.5); Lymphocytes Absolute Auto 3100 /uL (1100-4500); Lymphocytes Percent Auto 45.3 % (25-40); Mean Corpuscular HGB Conc 34.7 % (30-36); Mean Corpuscular Hemoglobin 30.2 PG (26-34); Monocytes Absolute Auto 800 /uL (0-900); Monocytes Percent Auto 11.9 % (3-14); Neutrophils Absolute Auto 2800 /uL (1500-7000); Neutrophils Percent Auto 40.3 % (50-75); Platelet Count 218 X10^3/uL (150-400); Red Blood Cell Count 4.92 X10^6/uL (4.5-5.9); Red Cell Distribution Width 13.3 % (11.6-14.8); White Blood Cell Count 6.8 X10^3/uL (4.5-11.0)
[2021-12-20 10:39] LABS: Alanine Aminotransferase 29 IU/L (<50); Albumin 4.4 g/dL (3.5-5.0); Albumin Globulin Ratio 1.5 (1.0-2.8); Alkaline Phosphatase 119 U/L (38-126); Aspartate Aminotransferase 29 IU/L (17-59); BUN Creatinine Ratio 17.1 (6-22); Bilirubin Total 0.9 mg/dL (0.2-1.3); Blood Urea Nitrogen 13 mg/dL (9-20); Calcium 8.9 mg/dL (8.4-10.2); Carbon Dioxide 27 mmol/L (22-32); Chloride 105 mmol/L (98-107); Estimated Glomerular Filt Rate > 60.0 mL/min (>60); Glucose 161 mg/dL (80-110); HEMOLYSIS < 15 (0-50); Potassium 3.5 mmol/L (3.4-5.1); Sodium 141 mmol/L (137-145); Total Protein 7.4 g/dL (6.3-8.2)
[2021-12-20 10:57] LABS: Free T4, Direct Thyroxine 2.44 ng/dL (0.78-2.19)
[2021-12-20 11:11] LABS: Thyroid Stimulating Hormone 0.064 uIU/mL (0.47-4.68)
== END ==
PROVIDERS: PCP Nurse Practitioner Family; Referring Provider Physician Assistant; Visit Provider Physician Assistant
DX: E03.9 Hypothyroidism, unspecified (principal); R35.1 Nocturia
CPT/HCPCS: 36415; 80053; 84439; 84443; 85025

== ENCOUNTER → 2022-01-20 07:46 | Outpatient (CLI) | payer MEDICARE, MEDICAID, SELFPAY ==
[2022-01-20 08:38] LABS: Hematocrit 43.5 % (41-53); Hemoglobin 15.1 g/dL (13.5-17.5); Mean Corpuscular HGB Conc 34.7 % (30-36); Mean Corpuscular Hemoglobin 30.2 PG (26-34); Mean Corpuscular Volume 87.2 fL (80-100); Platelet Count 226 X10^3/uL (150-400); Red Blood Cell Count 4.99 X10^6/uL (4.5-5.9); Red Cell Distribution Width 12.8 % (11.6-14.8); White Blood Cell Count 6.8 X10^3/uL (4.5-11.0)
[2022-01-20 09:10] LABS: Cholesterol 175 mg/dL (140-199); HDL Cholesterol 33 mg/dL (40-60); LDL Cholesterol Calculated 104 mg/dL (<100); Triglycerides 191 mg/dL (35-150)
[2022-01-20 09:28] LABS: Free T4, Direct Thyroxine 1.99 ng/dL (0.78-2.19)
[2022-01-20 09:41] LABS: Prostate Specific Antigen 3.07 ng/mL (0.10-4.00)
[2022-01-20 09:50] LABS: Thyroid Stimulating Hormone < 0.015 uIU/mL (0.47-4.68)
[2022-01-25 13:10] LABS: Percent Free Testosterone 1.46 % (1.50-4.20); Testosterone Free 4.41 ng/dL (5.00-21.00)
== END ==
PROVIDERS: PCP Nurse Practitioner Family; Referring Provider Physician Assistant Medical; Visit Provider Physician Assistant Medical
DX: E03.9 Hypothyroidism, unspecified (principal); R79.89 Other specified abnormal findings of blood chemistry
CPT/HCPCS: 36415; 80061; 84153; 84402; 84403; 84439; 84443; 85027

== ENCOUNTER → 2022-03-08 09:20 | Outpatient (CLI) | payer MEDICARE, MEDICAID, SELFPAY ==
[2022-03-08 10:35] LABS: Alanine Aminotransferase 28 IU/L (<50); Albumin 4.1 g/dL (3.5-5.0); Albumin Globulin Ratio 1.5 (1.0-2.8); Alkaline Phosphatase 120 U/L (38-126); Aspartate Aminotransferase 26 IU/L (17-59); Bilirubin Total 0.8 mg/dL (0.2-1.3); Bilirubin Unconjugated 0.9 mg/dL (0.0-1.1); Globulin 2.8 g/dL (1.7-4.1); HEMOLYSIS 20 (0-50); Total Protein 6.9 g/dL (6.3-8.2)
[2022-03-08 10:53] LABS: Free T4, Direct Thyroxine 2.24 ng/dL (0.78-2.19)
[2022-03-08 11:08] LABS: Thyroid Stimulating Hormone < 0.015 uIU/mL (0.47-4.68)
== END ==
PROVIDERS: Physician Assistant; PCP Registered Nurse Diabetes Educator; Referring Provider Nurse Practitioner Family; Visit Provider Nurse Practitioner Family
DX: E03.9 Hypothyroidism, unspecified (principal); B35.1 Tinea unguium
CPT/HCPCS: 36415; 80076; 84439; 84443

== ENCOUNTER → 2022-05-29 08:42 | Outpatient (CLI) | payer MEDICARE, MEDICAID, SELFPAY ==
[2022-05-29 12:30] LABS: Glucose 148 mg/dL (80-110)
[2022-05-29 14:31] LABS: TSH w/ Reflex to FT4 1.74 uIU/mL (0.47-4.68)
[2022-05-29 15:39] LABS: Hemoglobin A1C% w Est Avg Glu 6.4 % (4.0-6.0)
== END ==
PROVIDERS: PCP Registered Nurse Diabetes Educator; Referring Provider Registered Nurse Diabetes Educator; Visit Provider Registered Nurse Diabetes Educator
DX: R73.03 Prediabetes (principal); E03.9 Hypothyroidism, unspecified
CPT/HCPCS: 36415; 82947; 83036; 84443

== ENCOUNTER → 2022-06-13 09:19 | Outpatient (CLI) | payer MEDICARE, MEDICAID, SELFPAY ==
[2022-06-13 10:23] LABS: Alanine Aminotransferase 32 IU/L (<50); Albumin 4.2 g/dL (3.5-5.0); Albumin Globulin Ratio 1.4 (1.0-2.8); Alkaline Phosphatase 118 U/L (38-126); Aspartate Aminotransferase 28 IU/L (17-59); Bilirubin Unconjugated 0.9 mg/dL (0.0-1.1); Globulin 3.1 g/dL (1.7-4.1); HEMOLYSIS < 15 (0-50); Total Protein 7.3 g/dL (6.3-8.2)
== END ==
PROVIDERS: PCP Registered Nurse Diabetes Educator; Referring Provider Registered Nurse Diabetes Educator; Visit Provider Registered Nurse Diabetes Educator
DX: B35.1 Tinea unguium (principal)
CPT/HCPCS: 36415; 80076

== ENCOUNTER 2022-08-19 09:34 | Emergency (ER) | payer MEDICARE, SELFPAY ==
[2022-08-19] VITALS (7 sets, daily range): BP systolic 137–152; BP diastolic 90–94; PULSE 80–111; RESP 21–30; TEMP 37.6; O2SAT 91–92; BMI 37.2
[2022-08-19 10:02] LABS: Add Manual Diff / Slide Review NO; Basophils Absolute Auto 100 /uL (0-100); Basophils Percent Auto 0.9 % (0-2); Eosinophils Absolute Auto 100 /uL (0-450); Eosinophils Percent Auto 1.1 % (2-4); Hematocrit 47.1 % (41-53); Hemoglobin 16.2 g/dL (13.5-17.5); Lymphocytes Absolute Auto 2700 /uL (1100-4500); Mean Corpuscular HGB Conc 34.5 % (30-36); Mean Corpuscular Hemoglobin 29.9 PG (26-34); Mean Corpuscular Volume 86.7 fL (80-100); Monocytes Absolute Auto 1500 /uL (0-900); Neutrophils Absolute Auto 6900 /uL (1500-7000); Platelet Count 247 X10^3/uL (150-400); Red Blood Cell Count 5.43 X10^6/uL (4.5-5.9); Red Cell Distribution Width 13.3 % (11.6-14.8); White Blood Cell Count 11.4 X10^3/uL (4.5-11.0)
[2022-08-19 10:06] LABS: INR 1.3 (0.9-1.3); Prothrombin Time 14.6 SECONDS (10.1-12.7)
[2022-08-19 10:08] LABS: Alanine Aminotransferase 30 IU/L (<50); Albumin 4.5 g/dL (3.5-5.0); Albumin Globulin Ratio 1.2 (1.0-2.8); Alkaline Phosphatase 150 U/L (38-126); Aspartate Aminotransferase 23 IU/L (17-59); BUN Creatinine Ratio 14.9 (6-22); Bilirubin Total 1.3 mg/dL (0.2-1.3); Blood Urea Nitrogen 14 mg/dL (9-20); Carbon Dioxide 23 mmol/L (22-32); Chloride 102 mmol/L (98-107); Estimated Glomerular Filt Rate > 60 mL/min (>60); Globulin 3.7 g/dL (1.7-4.1); Glucose 147 mg/dL (80-110); HEMOLYSIS < 15 (0-50); Sodium 137 mmol/L (137-145); Total Protein 8.2 g/dL (6.3-8.2)
[2022-08-19 10:16] LABS: NT-proBNP (BNP-Adult 18+) 75 pg/mL (<125)
--- NOTE | 2022-08-19 10:18 | ED.SOB ---
HPI - SOB/Dyspnea General Chief Complaint: Shortness of Breath/Dyspnea Stated Complaint: Flu like symptoms,no sleep, headache Time Seen by Provider: 08/19/22 10:15 Source: patient Mode of arrival: Ambulatory Limitations: no limitations History of Present Illness HPI Narrative: Mr. Clark is a 61-year-old gentleman with illness now for the better part of a week. He is had cough and fever and shortness of breath and a great deal of difficulty sleeping over this past week. He has no GI symptoms. No chest pain other than with cough. To his knowledge he has no cardiac or pulmonary disease and no abdominal disease to his knowledge. He does have essential tremor and another movement disorder that he can not name. He is not been vomiting and his primary concern is his lack of sleep. He feels quite sick and just has not been able to ?bounced back? Related Data Home Medications Medication Instructions Recorded Confirmed Resprionics Dreamstation CPAP #1 ea 04/06/19 08/19/22 testosterone 50 mg/5 gram (1 %) 2 packet transdermal QAM 05/02/20 08/19/22 transdermal gel naproxen sodium 220 mg capsule 440 mg PO DAILY PRN 04/04/21 08/19/22 (Aleve) Previous Rx's Medication Instructions Recorded atorvastatin 10 mg tablet 10 mg PO BEDTIME #90 tabs 03/10/22 atorvastatin 40 mg tablet (Lipitor) 40 mg PO HS #90 tabs 03/10/22 levothyroxine 150 mcg tablet 150 mcg PO DAILY #90 tabs 06/05/22 mupirocin 2 % topical ointment 1 applic topical TID #15 grams 06/05/22 omeprazole 20 mg capsule,delayed 20 mg PO DAILY #90 caps 06/05/22 release terbinafine HCl 250 mg tablet 250 mg PO DAILY 12 weeks #84 tabs 07/14/22 azithromycin 250 mg tablet See Rx Instructions PO .COMPLEX #6 08/19/22 (Zithromax Z-Narinder) tabs trazodone 100 mg tablet 100 mg PO BEDTIME PRN insomnia #10 08/19/22 tabs Allergies Allergy/AdvReac Type Severity Reaction Status Date / Time adhesive Allergy Verified 08/19/22 09:40 Review of Systems Review of Systems Narrative: Complete review of systems negative other than as noted above. Patient History Medical History Anxiety Chronic back pain (1975) Chronic low back pain without sciatica Colon polyps (2016) Depression Diabetes mellitus type 2, diet-controlled Eczema Elevated alkaline phosphatase level Elevated glucose Generalized headaches GERD (gastroesophageal reflux disease) Hamstring tightness of right lower extremity Hx of brain damage (1959) Hyperlipemia Hyperthyroidism Hypertriglyceridemia Insomnia Obstructive sleep apnea of adult Prediabetes (06/2020) Skin tag Sleep apnea Snoring Vertigo (2016) Surgical History History of surgery on arm (2010) Status post knee surgery (2005) Status post knee surgery (2011) Family History Brother Age: 65 Heart disease Hypertension Hyperlipidemia Father Age: 90 Cancer Hyperlipidemia Brother Cancer Social History Smoking Status: Former smoker Tobacco: How many years used: 29 second hand exposure: Yes (once in a while, but not much.) alcohol intake: former substance use type: does not use Smoking Status: Former smoker alcohol intake frequency: holidays/special occasions only Substance Use Type: does not use Exam Narrative Exam Narrative: GENERAL: Alert, cooperative and in no distress. HEAD: Atraumatic. Normocephalic. EYES: Sclera are clear without icterus. Extraocular movements are full. ENT: No rhinorrhea. Lips are dry and cracked. NECK: Supple. Full range of motion. CARDIOVASCULAR: Normal rate and rhythm without murmur gallop or rub. RESPIRATORY: Clear to auscultation. Breath sounds equal bilaterally. No wheezes, rales, or rhonchi. GASTROINTESTINAL: Abdomen soft, non-tender, nondistended. EXTREMITIES: No edema, full range of motion. No obvious trauma. BACK: Normal inspection, no CVA tenderness. NEURO: Nonfocal examination, normal speech. SKIN: No rash or erythema of visible areas PSYCH: Normally oriented. Normal range of affect. Appropriate behavior Initial Vital Signs Initial Vital Signs: Vital Signs Temperature 99.6 F 08/19/22 09:40 Pulse Rate 111 H 08/19/22 09:40 Respiratory Rate 24 08/19/22 09:40 Blood Pressure 152/94 H 08/19/22 09:40 Pulse Oximetry 92 08/19/22 09:40 Oxygen Delivery Method 08/19/22 09:40 Course Orders Ordered: ED Orders 08/19/22 09:43 Measure peak expiratory flow ONCE RT Consult Eval and Treat Now 08/19/22 09:45 Covid-19 + FLU A/B by PCR Stat 08/19/22 09:52 Complete Blood Count AUTO DIFF Stat Comprehensive Metabolic Panel Stat Lactate (Lactic Acid) Stat NT-proBNP (BNP-Adult 18+) Stat Procalcitonin Stat Prothrombin Time INR Stat 08/19/22 09:54 EKG-12 Lead Stat 08/19/22 10:22 XR chest 2V Stat Discontinued Medications Sodium Chloride (Normal Saline 0.9%) 1,000 mls @ 1,000 mls/hr IV BOLUS ONE Stop: 08/19/22 11:21 Last Admin: 08/19/22 11:42 Dose: 1,000 mls/hr Documented By: SOPHIA Vital Signs Vital signs: Vital Signs - 8 hr 08/19/22 09:40 Temperature 99.6 F Pulse Rate 111 H Respiratory Rate 24 Blood Pressure 152/94 H Pulse Oximetry 92 Oxygen Delivery Method Room Air MDM - SOB/Dyspnea Lab Data Result diagrams: 08/19/22 09:52 08/19/22 09:52 Labs: Lab Results 08/19/22 08/19/22 08/19/22 Range/Units 09:45 09:52 09:52 WBC 11.4 H (4.5-11.0) X10^3/uL RBC 5.43 (4.5-5.9) X10^6/uL Hgb 16.2 (13.5-17.5) g/dL Hct 47.1 (41-53) % MCV 86.7 (80-100) fL MCH 29.9 (26-34) PG MCHC 34.5 (30-36) % RDW 13.3 (11.6-14.8) % Plt Count 247 (150-400) X10^3/uL Neut % (Auto) 61.0 (50-75) % Lymph % (Auto) 24.0 L (25-40) % [place] % (Auto) 13.0 (3-14) % Eos % (Auto) 1.1 L (2-4) % Baso % (Auto) 0.9 (0-2) % Neut # (Auto) 6900 (7943-4556) /uL Lymph # (Auto) 2700 (7887-4155) /uL [place] # (Auto) 1500 H (0-900) /uL Eos # (Auto) 100 (0-450) /uL Baso # (Auto) 100 (0-100) /uL PT 14.6 H (10.1-12.7) SECONDS INR 1.3 (0.9-1.3) Sodium (137-145) mmol/L Potassium (3.4-5.1) mmol/L Chloride (98-107) mmol/L Carbon Dioxide (22-32) mmol/L BUN (9-20) mg/dL Creatinine (0.66-1.25) mg/dL Estimated GFR (>60) mL/min BUN/Creatinine Ratio (6-22) Glucose (80-110) mg/dL Lactate (0.7-2.1) mmol/L Calcium (8.4-10.2) mg/dL Total Bilirubin (0.2-1.3) mg/dL AST (17-59) IU/L ALT (<50) IU/L Alkaline Phosphatase (38-126) U/L NT-Pro-B Natriuret Pep (<125) pg/mL Total Protein (6.3-8.2) g/dL Albumin (3.5-5.0) g/dL Globulin (1.7-4.1) g/dL Albumin/Globulin Ratio (1.0-2.8) Procalcitonin (<0.5) ng/mL SARS-CoV-2 (PCR) Negative (Negative) Influenza A (RT-PCR) Flu a negative (NEGATIVE) Influenza B (RT-PCR) Flu b negative (NEGATIVE) 08/19/22 08/19/22 08/19/22 Range/Units 09:52 09:52 09:52 WBC (4.5-11.0) X10^3/uL RBC (4.5-5.9) X10^6/uL Hgb (13.5-17.5) g/dL Hct (41-53) % MCV (80-100) fL MCH (26-34) PG MCHC (30-36) % RDW (11.6-14.8) % Plt Count (150-400) X10^3/uL Neut % (Auto) (50-75) % Lymph % (Auto) (25-40) % [place] % (Auto) (3-14) % Eos % (Auto) (2-4) % Baso % (Auto) (0-2) % Neut # (Auto) (5386-6057) /uL Lymph # (Auto) (4387-2440) /uL [place] # (Auto) (0-900) /uL Eos # (Auto) (0-450) /uL Baso # (Auto) (0-100) /uL PT (10.1-12.7) SECONDS INR (0.9-1.3) Sodium 137 (137-145) mmol/L Potassium 4.0 (3.4-5.1) mmol/L Chloride 102 (98-107) mmol/L Carbon Dioxide 23 (22-32) mmol/L BUN 14 (9-20) mg/dL Creatinine 0.94 (0.66-1.25) mg/dL Estimated GFR > 60 (>60) mL/min BUN/Creatinine Ratio 14.9 (6-22) Glucose 147 H (80-110) mg/dL Lactate 1.0 (0.7-2.1) mmol/L Calcium 9.0 (8.4-10.2) mg/dL Total Bilirubin 1.3 (0.2-1.3) mg/dL AST 23 (17-59) IU/L ALT 30 (<50) IU/L Alkaline Phosphatase 150 H (38-126) U/L NT-Pro-B Natriuret Pep 75 (<125) pg/mL Total Protein 8.2 (6.3-8.2) g/dL Albumin 4.5 (3.5-5.0) g/dL Globulin 3.7 (1.7-4.1) g/dL Albumin/Globulin Ratio 1.2 (1.0-2.8) Procalcitonin 0.11 (<0.5) ng/mL SARS-CoV-2 (PCR) (Negative) Influenza A (RT-PCR) (NEGATIVE) Influenza B (RT-PCR) (NEGATIVE) Imaging Data Chest x-ray: Radiologist's Impression: IMPRESSION:? Minimal increased vascularity suggestive of edema. ? ? Dictated by: Sandra Hopper M.D. on 08/19/2022 at 10:50 ? ? Approved by: Sandra Hopper M.D. on 08/19/2022 at 10:51 ? ECG Data Interpretation: QTC is 456. EKG obtained at 9:54 a.m. reveals sinus tachycardia at a rate of 102. Nonspecific ST-T-wave changes MDM Narrative Medical decision making narrative: Patient is a former smoker his oxygen saturations about 91%. Chest x-ray looks a little congested. He reports subjective fevers. Laboratory data is pretty reassuring. EKG is also reassuring for acute ischemia. I think he has atypical pneumonia and will treat for same. We will also prescribe trazodone for sleep. I do not believe he has an acute cardiac event or pulmonary embolism. Discharge Plan Departure Patient Disposition: Home Clinical Impression: Atypical pneumonia Instructions: Atypical Pneumonia Activity Restrictions/Additional Instructions: I think that you have atypical pneumonia. I recommend azithromycin as prescribed. You can use trazodone as needed for sleep. Keep herself fairly well hydrated. Extra rest will be needed. Take full dose ibuprofen and Tylenol regularly as this will make you feel somewhat better as well. If her feeling worse with worsening shortness of breath, please return to the ER for further assessment. Follow-up later this week for recheck if things are not improving quite dramatically. Prescriptions: New azithromycin [Zithromax Z-Narinder] 250 mg tablet See Rx Instructions .ROUTE .COMPLEX Qty: 6 0RF Rx Instructions: For 250 mg dose pack: take 500 mg today (day 1), then 250 mg for 4 days (days 2-5) trazodone 100 mg tablet 100 mg PO BEDTIME PRN (Reason: insomnia) Qty: 10 0RF No Action naproxen sodium [Aleve] 220 mg capsule 440 mg PO DAILY PRN atorvastatin 10 mg tablet 10 mg PO BEDTIME Qty: 90 1RF Rx Instructions: take a total of 50mg daily atorvastatin [Lipitor] 40 mg tablet 40 mg PO HS Qty: 90 1RF Rx Instructions: take a total of 50mg daily mupirocin 2 % ointment 1 applic topical TID Qty: 15 0RF Rx Instructions: antibiotic for skin infection levothyroxine 150 mcg tablet 150 mcg PO DAILY Qty: 90 3RF omeprazole 20 mg capsule,delayed release(DR/EC) 20 mg PO DAILY Qty: 90 3RF terbinafine HCl 250 mg tablet 250 mg PO DAILY 84 Days Qty: 84 0RF Rx Instructions: PLEASE REMEMBER TO GET REPEAT LIVER TEST DONE AFTER 6 WEEKS--LAB ORDER IS IN testosterone 50 mg/5 gram (1 %) gel 2 packet transdermal QAM (DME) Resprionics Dreamstation CPAP Qty: 1 Dose Instruction: As directed Label Comments: Pressure: 10-16 cmH2O DME: [facility] Rx Instructions: As directed Referrals: Marlon Esquivel ARNP [Primary Care Provider] -
--- NOTE | 2022-08-19 10:22 | DI.RAD.S_ITS ---
PROCEDURE: XR CHEST 2V INDICATIONS: Palpitations TECHNIQUE: 2 views of the chest were acquired. COMPARISON: [facility], , CHEST 1 VIEW, 10/15/2016, 8:35. FINDINGS: Surgical changes and devices: None. Lungs and pleura: Lungs are clear. No pleural effusions or pneumothorax. Minimal increased pulmonary vascularity Mediastinum: Mediastinal contours are normal. Heart size is mildly enlarged. Bones and chest wall: No suspicious bony abnormalities. Soft tissues appear unremarkable. IMPRESSION: Minimal increased vascularity suggestive of edema. Dictated by: Sandra Hopper M.D. on 08/19/2022 at 10:50 Approved by: Sandra Hopper M.D. on 08/19/2022 at 10:51
[2022-08-19 10:28] LABS: Influenza A - CEPHEID Flu A NEGATIVE (NEGATIVE); Influenza B - CEPHEID Flu B NEGATIVE (NEGATIVE)
[2022-08-19 10:31] LABS: COVID-19 CEPHEID 4-PLEX PCR Negative (Negative)
[2022-08-19 10:57] LABS: Procalcitonin 0.11 ng/mL (<0.5)
[2022-08-19] MEDS: SODIUM CHLORIDE 0.9% 1,000 ML 1000 ML IV (11:42)
== END 2022-08-19 13:39 | disposition home or self-care (01) ==
PROVIDERS: Emergency Provider Family Medicine Addiction Medicine; PCP Registered Nurse Diabetes Educator
DX: J18.9 Pneumonia, unspecified organism (principal); R50.9 Fever, unspecified; Z20.822 Contact with and (suspected) exposure to COVID-19
CPT/HCPCS: 36415; 71046; 80053; 83605; 83880; 84145; 85025; 85610; 87635; 93005; 99284; C9803

== ENCOUNTER 2022-08-26 14:55 | Emergency (ER) | payer MEDICARE, MEDICAID, SELFPAY ==
[2022-08-26] VITALS (8 sets, daily range): BP systolic 149–194; BP diastolic 78–104; PULSE 66–87; RESP 20–34; TEMP 37.2; O2SAT 95–98
--- NOTE | 2022-08-26 15:19 | ED.GENADULT ---
HPI - General Adult General Chief complaint: Shortness of Breath/Dyspnea Stated complaint: [facility] sent cough/dizzy/sob Time Seen by Provider: 08/26/22 15:10 Source: patient Mode of arrival: Ambulatory History of Present Illness HPI narrative: 61-year-old male who was recently seen in the emergency department diagnosed with pneumonia. Was prescribed antibiotics. Completed this. Stated that he never actually returned completely back to normal but was feeling better until just recently when his shortness of breath worsened. He is also been having cough. Dizzy. Chest pain because the cough. Went to the walk-in clinic and was sent to the emergency department for evaluation. Related Data Home Medications Medication Instructions Recorded Confirmed [employer] Dreamstation CPAP #1 ea 04/06/19 08/19/22 testosterone 50 mg/5 gram (1 %) 2 packet transdermal QAM 05/02/20 08/19/22 transdermal gel naproxen sodium 220 mg capsule 440 mg PO DAILY PRN 04/04/21 08/19/22 (Aleve) Previous Rx's Medication Instructions Recorded atorvastatin 10 mg tablet 10 mg PO BEDTIME #90 tabs 03/10/22 atorvastatin 40 mg tablet (Lipitor) 40 mg PO HS #90 tabs 03/10/22 levothyroxine 150 mcg tablet 150 mcg PO DAILY #90 tabs 06/05/22 mupirocin 2 % topical ointment 1 applic topical TID #15 grams 06/05/22 omeprazole 20 mg capsule,delayed 20 mg PO DAILY #90 caps 06/05/22 release terbinafine HCl 250 mg tablet 250 mg PO DAILY 12 weeks #84 tabs 07/14/22 azithromycin 250 mg tablet See Rx Instructions PO .COMPLEX #6 08/19/22 (Zithromax Z-Narinder) tabs trazodone 100 mg tablet 100 mg PO BEDTIME PRN insomnia #10 08/19/22 tabs albuterol sulfate 90 mcg/actuation 2 puff inhalation 6XD PRN 08/26/22 aerosol inhaler shortness of breath or wheezing #8.5 grams Allergies Allergy/AdvReac Type Severity Reaction Status Date / Time adhesive Allergy Verified 08/19/22 09:40 Review of Systems Review of Systems ROS Unobtainable: All systems reviewed & are unremarkable except as noted in HPI and below Patient History Medical History Anxiety Chronic back pain (1975) Chronic low back pain without sciatica Colon polyps (2016) Depression Diabetes mellitus type 2, diet-controlled Eczema Elevated alkaline phosphatase level Elevated glucose Generalized headaches GERD (gastroesophageal reflux disease) Hamstring tightness of right lower extremity Hx of brain damage (1959) Hyperlipemia Hyperthyroidism Hypertriglyceridemia Insomnia Obstructive sleep apnea of adult Prediabetes (06/2020) Skin tag Sleep apnea Snoring Vertigo (2016) Surgical History History of surgery on arm (2010) Status post knee surgery (2005) Status post knee surgery (2011) Family History Brother Age: 65 Heart disease Hypertension Hyperlipidemia Father Age: 90 Cancer Hyperlipidemia Brother Cancer Social History Smoking Status: Former smoker Tobacco: How many years used: 29 second hand exposure: Yes (once in a while, but not much.) alcohol intake: former substance use type: does not use Smoking Status: Former smoker alcohol intake frequency: holidays/special occasions only Substance Use Type: does not use Exam Initial Vital Signs Initial Vital Signs: Vital Signs Temperature 99.0 F 08/26/22 15:00 Pulse Rate 70 08/26/22 15:00 Respiratory Rate 24 08/26/22 15:00 Blood Pressure 162/80 H 08/26/22 15:00 Pulse Oximetry 97 08/26/22 15:00 Oxygen Delivery Method 08/26/22 15:00 Const General: cooperative, comfortable and No ill appearing [facility] Head: normal to inspection and normocephalic Resp Effort & Inspection: not labored and tachypneic Auscultation: diminished lung sounds and wheezes Cardio Rate: regular rate Rhythm: regular rhythm Skin General: no rashes or lesions noted Neuro General: patient alert, patient awake and moves all extremities Extrem General: No edema Psych Appearance: grossly normal and well kempt Course Orders Ordered: ED Orders 08/26/22 15:20 XR chest 1V Stat 08/26/22 15:22 EKG-12 Lead Stat 08/26/22 15:30 Blood Culture Stat Complete Blood Count AUTO DIFF Stat Comprehensive Metabolic Panel Stat Lipase Stat NT-proBNP (BNP-Adult 18+) Stat Procalcitonin Stat Troponin & CK Cardiac Panel Stat 08/26/22 15:58 Covid-19 + FLU A/B + RSV - PCR Stat Discontinued Medications Albuterol (Albuterol 2.5 Mg/3 Ml Neb (Adult)) 2.5 mg INH NOW ONE Stop: 08/26/22 15:20 Last Admin: 08/26/22 15:26 Dose: 2.5 mg Documented By: IMTIAZ Albuterol (Albuterol 2.5 Mg/3 Ml Neb (Adult)) 2.5 mg INH NOW ONE Stop: 08/26/22 16:27 Last Admin: 08/26/22 17:22 Dose: 2.5 mg Documented By: Dexamethasone (Dexamethasone 4 Mg Tablet) 16 mg PO NOW ONE Stop: 08/26/22 16:27 Last Admin: 08/26/22 17:20 Dose: 16 mg Documented By: EDUARDO Vital Signs Vital signs: Vital Signs - 8 hr 08/26/22 15:00 08/26/22 15:26 08/26/22 16:01 Temperature 99.0 F Pulse Rate 70 66 80 Respiratory Rate 24 20 26 H Blood Pressure 162/80 H Pulse Oximetry 97 95 97 Oxygen Delivery Method Room Air Room Air 08/26/22 16:30 08/26/22 16:30 08/26/22 17:00 Temperature Pulse Rate 80 Respiratory Rate 34 H Blood Pressure 178/88 H 170/81 H Pulse Oximetry 95 Oxygen Delivery Method 08/26/22 17:00 08/26/22 17:30 08/26/22 17:30 Temperature Pulse Rate 75 77 Respiratory Rate 22 28 H Blood Pressure 149/78 H Pulse Oximetry 95 98 Oxygen Delivery Method 08/26/22 18:00 08/26/22 18:00 08/26/22 18:05 Temperature Pulse Rate 87 Respiratory Rate Blood Pressure 194/104 H 167/78 H Pulse Oximetry 96 Oxygen Delivery Method Room Air 08/26/22 18:05 Temperature Pulse Rate 80 Respiratory Rate Blood Pressure Pulse Oximetry Oxygen Delivery Method Medical Decision Making Lab Data Lab results reviewed: Yes I reviewed the patient's lab results. Result diagrams: 08/26/22 15:30 08/26/22 15:30 Labs: Lab Results 08/26/22 08/26/22 08/26/22 Range/Units 15:30 15:30 15:58 WBC 10.7 (4.5-11.0) X10^3/uL RBC 4.98 (4.5-5.9) X10^6/uL Hgb 15.1 (13.5-17.5) g/dL Hct 42.9 (41-53) % MCV 86.0 (80-100) fL MCH 30.2 (26-34) PG MCHC 35.1 (30-36) % RDW 13.0 (11.6-14.8) % Plt Count 296 (150-400) X10^3/uL Neut % (Auto) 50.5 (50-75) % Lymph % (Auto) 39.5 (25-40) % [place] % (Auto) 7.1 (3-14) % Eos % (Auto) 1.7 L (2-4) % Baso % (Auto) 1.2 (0-2) % Neut # (Auto) 5400 (6525-6225) /uL Lymph # (Auto) 4200 (5039-4016) /uL [place] # (Auto) 800 (0-900) /uL Eos # (Auto) 200 (0-450) /uL Baso # (Auto) 100 (0-100) /uL Sodium 139 (137-145) mmol/L Potassium 3.8 (3.4-5.1) mmol/L Chloride 103 (98-107) mmol/L Carbon Dioxide 27 (22-32) mmol/L BUN 9 (9-20) mg/dL Creatinine 0.91 (0.66-1.25) mg/dL Estimated GFR > 60 (>60) mL/min BUN/Creatinine Ratio 9.9 (6-22) Glucose 91 (80-110) mg/dL Calcium 8.8 (8.4-10.2) mg/dL Total Bilirubin 0.5 (0.2-1.3) mg/dL AST 19 (17-59) IU/L ALT 22 (<50) IU/L Alkaline Phosphatase 136 H (38-126) U/L Total Creatine Kinase 59 (55-170) U/L CK-MB (CK-2) TNP CK-MB (CK-2) Rel Index TNP Troponin I < 0.012 (0.01-0.034) ng/mL NT-Pro-B Natriuret Pep 99 (<125) pg/mL Total Protein 7.4 (6.3-8.2) g/dL Albumin 4.1 (3.5-5.0) g/dL Globulin 3.3 (1.7-4.1) g/dL Albumin/Globulin Ratio 1.2 (1.0-2.8) Lipase 64 (23-300) U/L Procalcitonin 0.05 (<0.5) ng/mL SARS-CoV-2 (PCR) Negative (Negative) Influenza A (RT-PCR) Flu a negative (NEGATIVE) Influenza B (RT-PCR) Flu b negative (NEGATIVE) RSV (PCR) Positive A (Negative) Imaging Data Chest x-ray: Radiologist's Impression: [address] [address] XRay Report Signed Patient: Cipriano Clark MR#: [id number] : 1960 Acct:[id number] Age/Sex: 61 / M Date of Service: 08/26/22 Loc: ED Accession Number: [id number] ?? Procedure: XR chest 1V Ordering Provider: Pierce Pryor D.O. PROCEDURE:? XR CHEST 1V ? INDICATIONS:? SOB ? TECHNIQUE:? One view of the chest was acquired.? ? COMPARISON:? [facility], , XR CHEST 2V, 08/19/2022, 10:24. ? FINDINGS:? ? Surgical changes and devices:? None.? ? Lungs and pleura:? Lungs are clear.? No pleural effusions or pneumothorax.? ? Mediastinum:? Mediastinal contours appear normal.? Heart size is normal.? ? Bones and chest wall:? No suspicious bony lesions.? Overlying soft tissues appear unremarkable.? ? IMPRESSION:? No acute cardiopulmonary disease process. ? ? Dictated by: Maricruz Ness MD, PhD on 08/26/2022 at 15:59 ? ? Approved by: Maricruz Ness MD, PhD on 08/26/2022 at 16:01?? ECG Data Attestation: I personally reviewed and interpreted this ECG as follows: Interpretation: Sinus rhythm Ventricular rate is 68 Normal axis Normal QRS Normal QTC No ST T wave changes MDM Narrative Medical decision making narrative: Patient does report improvement after his 2 nebulizers. He is RSV positive which does explain his presenting symptoms. No indication for antibiotics. Will send home with a inhaler. He was given return precautions. He expressed understanding and agreement. Discharge Plan Departure Patient Disposition: Home Clinical Impression: Respiratory syncytial virus Instructions: DI for Respiratory Syncytial Virus -- Adults Activity Restrictions/Additional Instructions: A prescription for an albuterol inhaler was sent to the pharmacy of your choice. Piece use it as directed and as needed. You can take Tylenol for any fevers. Return to the emergency department for any new or worsening symptoms. Prescriptions: New albuterol sulfate 90 mcg/actuation HFA aerosol inhaler 2 puff inhalation 6XD PRN (Reason: shortness of breath or wheezing) Qty: 8.5 0RF No Action naproxen sodium [Aleve] 220 mg capsule 440 mg PO DAILY PRN atorvastatin 10 mg tablet 10 mg PO BEDTIME Qty: 90 1RF Rx Instructions: take a total of 50mg daily atorvastatin [Lipitor] 40 mg tablet 40 mg PO HS Qty: 90 1RF Rx Instructions: take a total of 50mg daily mupirocin 2 % ointment 1 applic topical TID Qty: 15 0RF Rx Instructions: antibiotic for skin infection levothyroxine 150 mcg tablet 150 mcg PO DAILY Qty: 90 3RF omeprazole 20 mg capsule,delayed release(DR/EC) 20 mg PO DAILY Qty: 90 3RF terbinafine HCl 250 mg tablet 250 mg PO DAILY 84 Days Qty: 84 0RF Rx Instructions: PLEASE REMEMBER TO GET REPEAT LIVER TEST DONE AFTER 6 WEEKS--LAB ORDER IS IN testosterone 50 mg/5 gram (1 %) gel 2 packet transdermal QAM azithromycin [Zithromax Z-Narinder] 250 mg tablet See Rx Instructions .ROUTE .COMPLEX Qty: 6 0RF Rx Instructions: For 250 mg dose pack: take 500 mg today (day 1), then 250 mg for 4 days (days 2-5) trazodone 100 mg tablet 100 mg PO BEDTIME PRN (Reason: insomnia) Qty: 10 0RF (DME) [employer] Dreamstation CPAP Qty: 1 Dose Instruction: As directed Label Comments: Pressure: 10-16 cmH2O DME: [facility] Rx Instructions: As directed Referrals: Marlon Esquivel ARNP [Primary Care Provider] -
--- NOTE | 2022-08-26 15:20 | DI.RAD.S_ITS ---
PROCEDURE: XR CHEST 1V INDICATIONS: SOB TECHNIQUE: One view of the chest was acquired. COMPARISON: [facility], CR, XR CHEST 2V, 08/19/2022, 10:24. FINDINGS: Surgical changes and devices: None. Lungs and pleura: Lungs are clear. No pleural effusions or pneumothorax. Mediastinum: Mediastinal contours appear normal. Heart size is normal. Bones and chest wall: No suspicious bony lesions. Overlying soft tissues appear unremarkable. IMPRESSION: No acute cardiopulmonary disease process. Dictated by: Maricruz Ness MD, PhD on 08/26/2022 at 15:59 Approved by: Maricruz Ness MD, PhD on 08/26/2022 at 16:01
[2022-08-26] MEDS: ALBUTEROL 2.5 MG/3 ML NEB (ADULT) INH ×2 (15:26→17:22)
[2022-08-26 15:40] LABS: Add Manual Diff / Slide Review NO; Basophils Absolute Auto 100 /uL (0-100); Basophils Percent Auto 1.2 % (0-2); Eosinophils Absolute Auto 200 /uL (0-450); Eosinophils Percent Auto 1.7 % (2-4); Hematocrit 42.9 % (41-53); Hemoglobin 15.1 g/dL (13.5-17.5); Lymphocytes Absolute Auto 4200 /uL (1100-4500); Lymphocytes Percent Auto 39.5 % (25-40); Mean Corpuscular HGB Conc 35.1 % (30-36); Mean Corpuscular Hemoglobin 30.2 PG (26-34); Monocytes Absolute Auto 800 /uL (0-900); Monocytes Percent Auto 7.1 % (3-14); Neutrophils Absolute Auto 5400 /uL (1500-7000); Neutrophils Percent Auto 50.5 % (50-75); Platelet Count 296 X10^3/uL (150-400); Red Blood Cell Count 4.98 X10^6/uL (4.5-5.9); White Blood Cell Count 10.7 X10^3/uL (4.5-11.0)
[2022-08-26 15:50] LABS: Alanine Aminotransferase 22 IU/L (<50); Albumin 4.1 g/dL (3.5-5.0); Albumin Globulin Ratio 1.2 (1.0-2.8); Alkaline Phosphatase 136 U/L (38-126); Aspartate Aminotransferase 19 IU/L (17-59); BUN Creatinine Ratio 9.9 (6-22); Bilirubin Total 0.5 mg/dL (0.2-1.3); Blood Urea Nitrogen 9 mg/dL (9-20); Calcium 8.8 mg/dL (8.4-10.2); Carbon Dioxide 27 mmol/L (22-32); Chloride 103 mmol/L (98-107); Creatine Kinase 59 U/L (55-170); Estimated Glomerular Filt Rate > 60 mL/min (>60); Globulin 3.3 g/dL (1.7-4.1); Glucose 91 mg/dL (80-110); HEMOLYSIS < 15 (0-50); Lipase 64 U/L (23-300); Potassium 3.8 mmol/L (3.4-5.1); Sodium 139 mmol/L (137-145); Total Protein 7.4 g/dL (6.3-8.2)
[2022-08-26 16:02] LABS: NT-proBNP (BNP-Adult 18+) 99 pg/mL (<125); Troponin I < 0.012 ng/mL (0.01-0.034)
[2022-08-26 16:06] LABS: Procalcitonin 0.05 ng/mL (<0.5)
[2022-08-26 16:55] LABS: Influenza A - CEPHEID Flu A NEGATIVE (NEGATIVE); Influenza B - CEPHEID Flu B NEGATIVE (NEGATIVE); Respiratory Syncytial Virus POSITIVE (Negative)
[2022-08-26 17:01] LABS: COVID-19 CEPHEID 4-PLEX PCR Negative (Negative)
[2022-08-26] MEDS: dexAMETHasone 4 MG TABLET 16 MG PO (17:20)
== END 2022-08-26 18:23 | disposition home or self-care (01) ==
PROVIDERS: Emergency Provider Emergency Medicine; PCP Registered Nurse Diabetes Educator
DX: J06.9 Acute upper respiratory infection, unspecified (principal); B97.4 Respiratory syncytial virus as the cause of diseases classified elsewhere; Z20.822 Contact with and (suspected) exposure to COVID-19; R03.0 Elevated blood-pressure reading, without diagnosis of hypertension
CPT/HCPCS: 0241U; 36415; 71045; 80053; 82550; 83690; 83880; 84145; 84484; 85025; 87040; 93005; 93010; 94640; 99284; J7613

== ENCOUNTER 2022-09-25 22:11 | Emergency (ER) | payer MEDICARE, MEDICAID, SELFPAY ==
[2022-09-25 22:47] VITALS: BP 210/102; PULSE 83; RESP 18; TEMP 36.6; O2SAT 97
--- NOTE | 2022-09-25 23:05 | DI.RAD.S_ITS ---
PROCEDURE: XR LUMBAR SPINE 2-3V INDICATIONS: severe back pain TECHNIQUE: 3 views of the lumbar spine were acquired. COMPARISON: None. FINDINGS: Bones: 5 [id number] vertebrae are present. There are pars defects at L5 with associated anterolisthesis of L5 on S1 measuring approximately 1 cm. There is moderate degenerative disc disease at L5-S1. Additional multilevel degenerative disc disease also demonstrated throughout the lumbar spine including moderate degeneration at L2-L3. Mild facet arthropathy demonstrated in the lower lumbar spine. No vertebral body compression fractures. Soft tissues: Overlying bowel gas pattern is normal. No suspicious soft tissue calcifications. IMPRESSION: 1. Pars defects at L5 with associated anterolisthesis of L5 on S1 as described. Dictated by: Rex Castillo M.D. on 09/26/2022 at 0:21 Approved by: Rex Castillo M.D. on 09/26/2022 at 0:24
--- NOTE | 2022-09-26 00:45 | ED_ITS ---
HPI - Back Pain/Injury General Chief Complaint: Back Pain/Injury Stated Complaint: THREW BACK OUT Time Seen by Provider: 09/25/22 23:04 Source: patient History of Present Illness HPI Narrative: 61-year-old male former smoker with history of prediabetes, prior orthopedic injuries, history of back pain presents with significant other and a chief complaint of gradually worsening low back pain over the past few days. He states that it started when he was reaching over to take a sock off and he felt a pulling sensation and spasming in his low back. He states the pain is worse when he moves and improves with rest. He states the pain is at times sharp and stabbing and radiates down his right leg. He denies numbness, tingling or weakness. He is had no footdrop. He denies any difficulty controlling bowel or bladder. He is had no fever or chills and denies any direct traumatic injury. He takes no blood thinners. He denies other symptoms such as dizziness, weakness or lightheadedness. He is no chest pain or shortness of breath. He denies abdominal pain, constipation, diarrhea or urinary complaints Related Data Home Medications Medication Instructions Recorded Confirmed [employer] Dreamstation CPAP #1 ea 04/06/19 08/19/22 testosterone 50 mg/5 gram (1 %) 2 packet transdermal QAM 05/02/20 08/19/22 transdermal gel naproxen sodium 220 mg capsule 440 mg PO DAILY PRN 04/04/21 08/19/22 (Aleve) Previous Rx's Medication Instructions Recorded mupirocin 2 % topical ointment 1 applic topical TID #15 grams 06/05/22 terbinafine HCl 250 mg tablet 250 mg PO DAILY 12 weeks #84 tabs 07/14/22 azithromycin 250 mg tablet See Rx Instructions PO .COMPLEX #6 08/19/22 (Zithromax Z-Narinder) tabs trazodone 100 mg tablet 100 mg PO BEDTIME PRN insomnia #10 08/19/22 tabs albuterol sulfate 90 mcg/actuation 2 puff inhalation 6XD PRN 08/26/22 aerosol inhaler shortness of breath or wheezing #8.5 grams atorvastatin 10 mg tablet 10 mg PO BEDTIME #90 tabs 09/24/22 atorvastatin 40 mg tablet (Lipitor) 40 mg PO HS #90 tabs 09/24/22 levothyroxine 150 mcg tablet 150 mcg PO DAILY #90 tabs 09/24/22 omeprazole 20 mg capsule,delayed 20 mg PO DAILY #90 caps 09/24/22 release cyclobenzaprine 10 mg tablet 10 mg PO TID PRN muscle spasm #14 09/26/22 tabs gabapentin 300 mg capsule 300 mg PO BEDTIME #14 caps 09/26/22 hydrocodone 5 mg-acetaminophen 325 1 tab PO Q4-6H PRN pain #10 tabs 09/26/22 mg tablet ketorolac 10 mg tablet 10 mg PO Q6H PRN pain #14 tabs 09/26/22 methylprednisolone 4 mg tablets in See Rx Instructions PO .COMPLEX 09/26/22 a dose pack (Medrol (Narinder)) #21 ea Allergies Allergy/AdvReac Type Severity Reaction Status Date / Time adhesive Allergy Verified 08/19/22 09:40 Review of Systems Review of Systems Narrative: GENERAL: Denies chills, fatigue, malaise, fever, sweats. HEENT: Denies sinus pain, ear pain, sore throat, difficulty swallowing, dizziness. RESPIRATORY: Denies dyspnea, cough, wheezing, hemoptysis, sputum. CARDIOVASCULAR: Denies chest pain, palpitations, orthopnea, edema, GASTROINTESTINAL: Denies nausea, vomiting, abdominal pain, diarrhea, constipation, melena. : Denies dysuria, frequency, incontinence, hematuria, urinary retention. MUSCULOSKELETAL: See HPI SKIN: Denies rash, skin lesions, or other NEUROLOGIC: Denies weakness, headache, numbness, change in speech, confusion, seizures, incoordination. PSYCHIATRIC: No concerning psychosocial issues. 12 point review of systems is negative except for those stated above Patient History Medical History Anxiety Chronic back pain (1975) Chronic low back pain without sciatica Colon polyps (2015) Depression Diabetes mellitus type 2, diet-controlled Eczema Elevated alkaline phosphatase level Elevated glucose Generalized headaches GERD (gastroesophageal reflux disease) Hamstring tightness of right lower extremity Hx of brain damage (1959) Hyperlipemia Hyperthyroidism Hypertriglyceridemia Insomnia Obstructive sleep apnea of adult Prediabetes (06/2020) Skin tag Sleep apnea Snoring Vertigo (2016) Surgical History History of surgery on arm (2010) Status post knee surgery (2005) Status post knee surgery (2011) Family History Brother Age: 65 Heart disease Hypertension Hyperlipidemia Father Age: 90 Cancer Hyperlipidemia Brother Cancer Social History Smoking Status: Former smoker Tobacco: How many years used: 29 second hand exposure: Yes (once in a while, but not much.) alcohol intake: former substance use type: does not use Smoking Status: Former smoker alcohol intake frequency: holidays/special occasions only Substance Use Type: does not use Exam Narrative Exam Narrative: GENERAL: [61] year old patient appears stated age. Well-developed patient, in mild distress. HEAD: Atraumatic. Normocephalic. EYES: Pupils equal round and reactive. Extraocular motions intact. No scleral icterus. No injection or drainage. ENT: Nose without bleeding, purulent drainage. Throat without erythema, tonsillar hypertrophy or exudate. Airway patent. NECK: Trachea midline. Non tender CARDIOVASCULAR: Regular rate and rhythm without murmurs, gallops, or rubs. RESPIRATORY: Clear to auscultation. Breath sounds equal bilaterally. No wheezes, rales, or rhonchi. GASTROINTESTINAL: Abdomen soft, non-tender, nondistended. EXTREMITIES: No edema or joint tenderness. BACK: ager tender but free of any obvious external abnormalities. Patient exam notes decreased range of motion and muscle spasm, but no CVA tenderness, or vertebral point tenderness. There are no symptoms of cauda equina such as saddle anesthesia, and decreased reflexes, decreased sensation or strength. NEURO: AOx3. SKIN: No rash or erythema of visible areas Initial Vital Signs Initial Vital Signs: Vital Signs Temperature 97.9 F 09/25/22 22:47 Pulse Rate 83 09/25/22 22:47 Respiratory Rate 18 09/25/22 22:47 Blood Pressure 210/102 H 09/25/22 22:47 Pulse Oximetry 97 09/25/22 22:47 Oxygen Delivery Method 09/25/22 22:47 Course Orders Ordered: ED Orders 09/25/22 23:05 XR lumbar spine 2-3V Stat Discontinued Medications Hydrocodone Bitart/Acetaminophen (Hydrocodone/Acet 5/325 Prepack) 1 bottle MISC SEEINSTR ONE Stop: 09/26/22 01:43 Cyclobenzaprine HCl (Cyclobenzaprine 10 Mg Prepack) 1 bottle MISC SEEINSTR ONE Stop: 09/26/22 01:42 Gabapentin (Gabapentin 300 Mg Capsule) 300 mg PO NOW ONE Stop: 09/26/22 01:42 Ketorolac Tromethamine (Ketorolac 30 Mg/Ml Vial) 30 mg IM NOW ONE Stop: 09/26/22 01:43 Lidocaine (Lidocaine Patch 1 Each Adh..Patch) 1 each TOP NOW ONE Stop: 09/26/22 01:42 Prednisone (Prednisone 20 Mg Tablet) 40 mg PO NOW ONE Stop: 09/26/22 01:42 Vital Signs Vital signs: Vital Signs - 8 hr 09/25/22 22:47 Temperature 97.9 F Pulse Rate 83 Respiratory Rate 18 Blood Pressure 210/102 H Pulse Oximetry 97 Oxygen Delivery Method Room Air MDM - Back Pain/Injury MDM Narrative Medical decision making narrative: 61-year-old male former smoker with history of prediabetes, prior orthopedic injuries, history of back pain presents with back pain radiating down the R leg Multiple etiologies for patient's symptoms considered including: [Lumbar spasm with radiculopathy, sciatica, epidural abscess, spinal hematoma, cauda equina vs. other No red flag findings suggestive of neurosurgical emergency are present based on history and physical. X-ray without significant abnormality Patient's symptoms improved over duration of stay with above-stated therapies. Findings and discharge diagnosis discussed with patient/family followed by verbalization of understanding Return precautions discussed with patient/family whom verbalize understanding. Discharge Plan Departure Patient Disposition: Home Clinical Impression: Acute lumbar radiculopathy Instructions: DI for Lumbar Radiculopathy Activity Restrictions/Additional Instructions: *You have been diagnosed with [acute right-sided lumbar radiculopathy] *What to do: *Please continue to take your regular medications as directed. [ x] New medication prescriptions sent to your pharmacy: [ [facility]] [ ] New medication written as a paper prescription [ ] No new medications given *Please follow up with your primary care provider in 2-3 days, call for an appointment. Let them know you were seen in the Emergency Department and that we ask that you be seen in follow up. We will electronically transmit a record of today's note if your PCP is in our system. Also as we have discussed I have included the contact information for both Dr. Patiño and Dr. Aguilera who are back specialists that work here at [facility] *Return to Emergency Department if you should have any new, worsening or concerning symptoms, such as [fever greater than 101 F, shaking chills, worsening pain, persistent vomiting, loss of control of bowel or bladder, or other bothersome symptoms] You have been prescribed a short course of narcotic medications. These are potentially dangerous and addictive medications that should be used carefully. While on these medications you cannot drive or operate heavy machinery. Additionally, you cannot sign legal documents or perform any duties such as this. Many people get constipated on narcotic medications so it would be advisable to discuss stool softeners with the pharmacist when you pickle maker your prescription. Please understand that we cannot provide further refills of narcotics or controlled substances through the ED and your pain management will need to be through your Primary Care Provider Prescriptions: New cyclobenzaprine 10 mg tablet 10 mg PO TID PRN (Reason: muscle spasm) Qty: 14 0RF hydrocodone-acetaminophen 5-325 mg tablet 1 tab PO Q4-6H PRN (Reason: pain) Qty: 10 0RF ketorolac 10 mg tablet 10 mg PO Q6H PRN (Reason: pain) Qty: 14 0RF gabapentin 300 mg capsule 300 mg PO BEDTIME Qty: 14 0RF methylprednisolone [Medrol (Narinder)] 4 mg tablets,dose pack See Rx Instructions .ROUTE .COMPLEX Qty: 21 0RF Rx Instructions: orally per package directions No Action atorvastatin 10 mg tablet 10 mg PO BEDTIME Qty: 90 1RF Rx Instructions: take a total of 50mg daily atorvastatin [Lipitor] 40 mg tablet 40 mg PO HS Qty: 90 1RF Rx Instructions: take a total of 50mg daily omeprazole 20 mg capsule,delayed release(DR/EC) 20 mg PO DAILY Qty: 90 3RF levothyroxine 150 mcg tablet 150 mcg PO DAILY Qty: 90 3RF naproxen sodium [Aleve] 220 mg capsule 440 mg PO DAILY PRN mupirocin 2 % ointment 1 applic topical TID Qty: 15 0RF Rx Instructions: antibiotic for skin infection terbinafine HCl 250 mg tablet 250 mg PO DAILY 84 Days Qty: 84 0RF Rx Instructions: PLEASE REMEMBER TO GET REPEAT LIVER TEST DONE AFTER 6 WEEKS--LAB ORDER IS IN testosterone 50 mg/5 gram (1 %) gel 2 packet transdermal QAM azithromycin [Zithromax Z-Narinder] 250 mg tablet See Rx Instructions .ROUTE .COMPLEX Qty: 6 0RF Rx Instructions: For 250 mg dose pack: take 500 mg today (day 1), then 250 mg for 4 days (days 2-5) trazodone 100 mg tablet 100 mg PO BEDTIME PRN (Reason: insomnia) Qty: 10 0RF albuterol sulfate 90 mcg/actuation HFA aerosol inhaler 2 puff inhalation 6XD PRN (Reason: shortness of breath or wheezing) Qty: 8.5 0RF (DME) [employer] Dreamstation CPAP Qty: 1 Dose Instruction: As directed Label Comments: Pressure: 10-16 cmH2O DME: [facility] Rx Instructions: As directed Referrals: Cheikh Patiño DO [Physician] - Christianne Aguilera MD [Physician] - Marlon Esquivel ARNP [Primary Care Provider] -
[2022-09-26] MEDS: LIDOCAINE PATCH 1 EACH ADH..PATCH TOP (02:10)
[2022-09-26] MEDS: KETOROLAC 30 MG/ML VIAL IM (02:11)
[2022-09-26] MEDS: predniSONE 20 MG TABLET 40 MG PO (02:11)
[2022-09-26] MEDS: GABAPENTIN 300 MG CAPSULE PO (02:11)
[2022-09-26] MEDS: CYCLOBENZAPRINE 10 MG PREPACK 1 BOTTLE MISC (02:12)
[2022-09-26] MEDS: HYDROCODONE/ACET 5/325 PREPACK 1 BOTTLE MISC (02:12)
[2022-09-26 02:28] VITALS: BP 158/84; PULSE 88; RESP 16; TEMP 36.6; O2SAT 98
== END 2022-09-26 02:30 | disposition home or self-care (01) ==
PROVIDERS: Emergency Provider Emergency Medicine; PCP Registered Nurse Diabetes Educator
DX: M54.16 Radiculopathy, lumbar region (principal)
CPT/HCPCS: 72100; 96372; 99283; J1885

== ENCOUNTER → 2023-01-20 07:04 | Outpatient (CLI) | payer MEDICARE, MEDICAID, SELFPAY ==
[2023-01-20 08:13] LABS: Hematocrit 44.2 % (41-53); Hemoglobin 15.3 g/dL (13.5-17.5); Mean Corpuscular HGB Conc 34.6 % (30-36); Mean Corpuscular Hemoglobin 30.5 PG (26-34); Mean Corpuscular Volume 88.1 fL (80-100); Platelet Count 251 X10^3/uL (150-400); Red Blood Cell Count 5.01 X10^6/uL (4.5-5.9); Red Cell Distribution Width 12.8 % (11.6-14.8); White Blood Cell Count 8.8 X10^3/uL (4.5-11.0)
[2023-01-20 08:32] LABS: Alanine Aminotransferase 31 IU/L (<50); Albumin 4.2 g/dL (3.5-5.0); Albumin Globulin Ratio 1.4 (1.0-2.8); Alkaline Phosphatase 135 U/L (38-126); Aspartate Aminotransferase 26 IU/L (17-59); BUN Creatinine Ratio 12.2 (6-22); Bilirubin Total 0.8 mg/dL (0.2-1.3); Blood Urea Nitrogen 10 mg/dL (9-20); Calcium 8.7 mg/dL (8.4-10.2); Carbon Dioxide 29 mmol/L (22-32); Chloride 103 mmol/L (98-107); Cholesterol 180 mg/dL (140-199); Estimated Glomerular Filt Rate > 60 mL/min (>60); Glucose 135 mg/dL (80-110); HDL Cholesterol 34 mg/dL (40-60); HEMOLYSIS < 15 (0-50); LDL Cholesterol Calculated 94 mg/dL (<100); Sodium 140 mmol/L (137-145); Total Protein 7.2 g/dL (6.3-8.2); Triglycerides 261 mg/dL (35-150)
[2023-01-20 09:01] LABS: Prostate Specific Antigen 2.99 ng/mL (0.10-4.00)
[2023-01-20 09:03] LABS: TSH w/ Reflex to FT4 7.81 uIU/mL (0.47-4.68)
[2023-01-20 09:43] LABS: Creatinine Urine Random 194.1 mg/dL
[2023-01-20 09:48] LABS: Microalbumi Creatinin Ratio Ur 27.3 ug/mg CR (<30); Microalbumin Urine Random 5.3 mg/dL (0-1.6)
[2023-01-20 10:00] LABS: Free T4, Direct Thyroxine 1.04 ng/dL (0.78-2.19)
[2023-01-21 05:38] LABS: Labcorp Hemoglobin (Hb) A1c 6.6 % (4.8-5.6)
[2023-02-05 15:51] LABS: Percent Free Testosterone 2.04 % (1.50-4.20); Testosterone Free 6.49 ng/dL (5.00-21.00)
== END ==
PROVIDERS: PCP Registered Nurse Diabetes Educator; Referring Provider Physician Assistant Medical; Visit Provider Physician Assistant Medical
DX: E29.1 Testicular hypofunction (principal); Z12.5 Encounter for screening for malignant neoplasm of prostate; E11.9 Type 2 diabetes mellitus without complications; R79.89 Other specified abnormal findings of blood chemistry; I10 Essential (primary) hypertension; E78.2 Mixed hyperlipidemia; Z79.899 Other long term (current) drug therapy
CPT/HCPCS: 36415; 80053; 80061; 82043; 82570; 83036; 84153; 84402; 84403; 84439; 84443; 85027; G0103

== ENCOUNTER → 2023-01-27 07:07 | Outpatient (CLI) | payer MEDICARE, MEDICAID, SELFPAY ==
[2023-01-27 08:37] LABS: Cholesterol 176 mg/dL (140-199); HDL Cholesterol 35 mg/dL (40-60); LDL Cholesterol Calculated 106 mg/dL (<100); Triglycerides 173 mg/dL (35-150)
== END ==
PROVIDERS: Physician Assistant Medical; PCP Registered Nurse Diabetes Educator; Referring Provider Registered Nurse Diabetes Educator; Visit Provider Registered Nurse Diabetes Educator
DX: R79.89 Other specified abnormal findings of blood chemistry (principal)
CPT/HCPCS: 36415; 80061

== ENCOUNTER 2023-01-29 23:17 | Emergency (ER) | payer MEDICARE, MEDICAID, SELFPAY ==
[2023-01-29 23:24] VITALS: BP 134/76; PULSE 102; RESP 27; TEMP 36.8; O2SAT 96; BMI 37.6
[2023-01-30 00:04] LABS: Add Manual Diff / Slide Review NO; Basophils Absolute Auto 100 /uL (0-100); Basophils Percent Auto 1.1 % (0-2); Eosinophils Absolute Auto 0 /uL (0-450); Eosinophils Percent Auto 0.1 % (2-4); Hematocrit 46.5 % (41-53); Hemoglobin 16.2 g/dL (13.5-17.5); Lymphocytes Absolute Auto 1800 /uL (1100-4500); Mean Corpuscular HGB Conc 34.9 % (30-36); Mean Corpuscular Hemoglobin 30.4 PG (26-34); Mean Corpuscular Volume 87.2 fL (80-100); Monocytes Absolute Auto 1100 /uL (0-900); Monocytes Percent Auto 10.4 % (3-14); Neutrophils Absolute Auto 8000 /uL (1500-7000); Neutrophils Percent Auto 72.4 % (50-75); Platelet Count 275 X10^3/uL (150-400); Red Blood Cell Count 5.34 X10^6/uL (4.5-5.9); Red Cell Distribution Width 13.1 % (11.6-14.8)
[2023-01-30 00:07] LABS: Alanine Aminotransferase 41 IU/L (<50); Albumin 4.6 g/dL (3.5-5.0); Albumin Globulin Ratio 1.3 (1.0-2.8); Alkaline Phosphatase 131 U/L (38-126); Aspartate Aminotransferase 35 IU/L (17-59); BUN Creatinine Ratio 20.6 (6-22); Bilirubin Total 0.9 mg/dL (0.2-1.3); Blood Urea Nitrogen 20 mg/dL (9-20); Calcium 8.8 mg/dL (8.4-10.2); Carbon Dioxide 24 mmol/L (22-32); Chloride 102 mmol/L (98-107); Estimated Glomerular Filt Rate > 60 mL/min (>60); Globulin 3.5 g/dL (1.7-4.1); Glucose 159 mg/dL (80-110); HEMOLYSIS 16 (0-50); Lipase 72 U/L (23-300); Potassium 3.2 mmol/L (3.4-5.1); Sodium 140 mmol/L (137-145); Total Protein 8.1 g/dL (6.3-8.2)
[2023-01-30 00:15] VITALS: BP 126/73; PULSE 93; O2SAT 93
[2023-01-30 00:44] VITALS: BP 133/74; PULSE 97; O2SAT 97
--- NOTE | 2023-01-30 00:47 | ED_ITS ---
HPI - Abdominal Pain General Chief Complaint: Abdominal Pain Stated Complaint: N/V/D Time Seen by Provider: 01/30/23 00:46 Source: patient and EMS Mode of arrival: EMS Limitations: no limitations History of Present Illness HPI narrative: This is a 62-year-old male with history of chronic low back pain, type 2 diabe bienvenido, hypothyroidism, GERD with complaint of sudden onset this morning of vomiting and diarrhea with multiple episodes patient has been unable to keep any fluids down. He states he may have had fevers he has been sweaty on and off. He denies chest pain or shortness of breath. Denies any passing out. He is had headache, he is had muscle aches all over. He is abdominal pain that he states is in the lower abdomen on both sides and some lower back pain as well. Patient denies any dysuria, urgency or frequency. He states he was having frequent diarrhea that was watery. He states his vomit was sludge like and then watery afterwards and that his diarrhea was similar. He states no black or bloody stools. Patient notes he had some hamburger last night at dinner no one else ate it he thinks that might have been a source of his symptoms. He does not have any other known sick contacts. He does not typically get these symptoms. Note that he occasionally has twitching that is persistent and longstanding he does not know the source. Patient denies any prior abdominal surgeries or cardi ac interventions. He is had prior wrist and knee surgery. No known drug allergies. He quit tobacco remotely, no alcohol or illicit. His primary care is Marlon Esquivel. Related Data Home Medications Medication Instructions Recorded Confirmed [employer] Dreamstation CPAP #1 ea 04/06/19 09/29/22 testosterone 50 mg/5 gram (1 %) 2 packet transdermal QAM 05/02/20 09/29/22 transdermal gel naproxen sodium 220 mg capsule 440 mg PO DAILY PRN 04/04/21 09/29/22 (Aleve) Previous Rx's Medication Instructions Recorded mupirocin 2 % topical ointment 1 applic topical TID #15 grams 06/05/22 trazodone 100 mg tablet 100 mg PO BEDTIME PRN insomnia #10 08/19/22 tabs albuterol sulfate 90 mcg/actuation 2 puff inhalation 6XD PRN 08/26/22 aerosol inhaler shortness of breath or wheezing #8.5 grams levothyroxine 150 mcg tablet 150 mcg PO DAILY #90 tabs 09/24/22 omeprazole 20 mg capsule,delayed 20 mg PO DAILY #90 caps 09/24/22 release cyclobenzaprine 10 mg tablet 10 mg PO TID PRN muscle spasm #14 09/26/22 tabs gabapentin 300 mg capsule 300 mg PO BEDTIME #14 caps 09/26/22 hydrocodone 5 mg-acetaminophen 325 1 tab PO Q4-6H PRN pain #10 tabs 09/26/22 mg tablet ketorolac 10 mg tablet 10 mg PO Q6H PRN pain #14 tabs 09/26/22 methylprednisolone 4 mg tablets in See Rx Instructions PO .COMPLEX 09/26/22 a dose pack (Medrol (Narinder)) #21 ea pneumococcal 23-camila ps vaccine 25 0.5 ml IM ONCE #0.5 mL 09/29/22 mcg/0.5 mL injection syringe (Pneumovax-23) atorvastatin 10 mg tablet 10 mg PO BEDTIME #90 tabs 11/13/22 atorvastatin 40 mg tablet (Lipitor) 40 mg PO HS #90 tabs 11/13/22 Allergies Allergy/AdvReac Type Severity Reaction Status Date / Time adhesive Allergy Verified 09/29/22 15:17 Review of Systems Review of Systems ROS Unobtainable: All systems reviewed & are unremarkable except as noted in HPI and below Patient History Medical History Anxiety Chronic back pain (1975) Chronic low back pain without sciatica Colon polyps (2015) Depression Diabetes mellitus type 2, diet-controlled Eczema Elevated alkaline phosphatase level Elevated glucose Essential hypertension Generalized headaches GERD (gastroesophageal reflux disease) Hamstring tightness of right lower extremity Hx of brain damage (1959) Hyperlipemia Hyperthyroidism Hypertriglyceridemia Insomnia Obstructive sleep apnea of adult Prediabetes (06/2020) Skin tag Sleep apnea Snoring Vertigo (2016) Surgical History History of surgery on arm (2010) Status post knee surgery (2005) Status post knee surgery (2011) Family History Brother Age: 66 Heart disease Hypertension Hyperlipidemia Father Age: 91 Cancer Hyperlipidemia Brother Cancer Social History Smoking Status: Former smoker Tobacco: How many years used: 29 second hand exposure: Yes (once in a while, but not much.) alcohol intake: former substance use type: does not use Smoking Status: Former smoker alcohol intake frequency: holidays/special occasions only Substance Use Type: does not use Exam Narrative Exam Narrative: GEN: Obese male, alert and oriented x 3, patient appears to be in mild-to-mo derate distress. HEENT: Atraumatic, pupils are equal round reactive to light, extraocular movements are intact, nares are clear, there is no conjunctival pallor. Throat is clear without any exudates, erythema, tonsillar enlargement or uvular deviation HEART: Regular rate and rhythm without murmur, clicks, rubs. Pulses are equal in upper and lower extremities LUNGS:Lungs clear to auscultation, no wheezes, rales, crackles, chest moves symmetrically, no tachypnea or accessory muscle use. ABD:bowel sounds normal, soft, mild generalized tenderness, no guarding, rebound, rigidity, no masses noted, no hepatosplenomegaly, no bruit or pulsatile mass :No CVA tenderness MSCL: Non-tender, no muscle atrophy, muscles strength 5/5 upper and lower extremities, full range of motion NEURO:CN 2-12 intact, sensation normal SKIN: No rash, no erythema or other skin changes. noted. Initial Vital Signs Initial Vital Signs: Vital Signs Temperature 98.3 F 01/29/23 23:24 Pulse Rate 102 H 01/29/23 23:24 Respiratory Rate 27 H 01/29/23 23:24 Blood Pressure 134/76 01/29/23 23:24 Pulse Oximetry 96 01/29/23 23:24 Oxygen Delivery Method Room Air 01/29/23 23:24 Course Orders Ordered: ED Orders 01/29/23 23:28 EKG-12 Lead Stat 01/29/23 23:50 Complete Blood Count AUTO DIFF Stat Comprehensive Metabolic Panel Stat Lipase Stat 01/30/23 00:47 EKG-12 Lead Stat 01/30/23 00:56 CT abdomen pelvis w con Stat Lactate (Lactic Acid) Stat MAG [Magnesium] Stat Procalcitonin Stat 01/30/23 01:05 Chest [XR chest 1V] Stat Troponin & CK Cardiac Panel Stat 01/30/23 01:41 Blood Culture Stat 01/30/23 01:49 GI Panel (Film Array) Stat 01/30/23 02:10 Respiratory Panel (Film Array) Stat Discontinued Medications Sodium Chloride (Normal Saline 0.9%) 1,000 mls @ 1,000 mls/hr IV BOLUS ONE Stop: 01/30/23 01:55 Last Infusion: 01/30/23 02:17 Dose: 0 mls/hr Documented By: Admin: 01/30/23 01:13 Dose: 1,000 mls/hr Documented By: GC Morphine Sulfate (Morphine 2 Mg/Ml Inj) 2 mg IV NOW ONE Stop: 01/30/23 01:02 Last Admin: 01/30/23 01:13 Dose: 2 mg Documented By: JOANNA Ondansetron HCl (Ondansetron 4 Mg Odt) 4 mg PO NOW PRN PRN Reason: Nausea And Vomiting Ondansetron HCl (Ondansetron 4 Mg/2 Ml Inj) 4 mg IV NOW PRN PRN Reason: Nausea And Vomiting Last Admin: 01/30/23 01:13 Dose: 4 mg Documented By: JOANNA Ondansetron HCl (Ondansetron 4 Mg Odt Prepack) 1 bottle MISC SEEINSTR ONE Stop: 01/30/23 03:32 Last Admin: 01/30/23 03:40 Dose: 1 bottle Potassium Chloride (Potassium Chloride 20 Meq/15 Ml Udc) 40 meq PO NOW ONE Stop: 01/30/23 00:57 Last Admin: 01/30/23 01:46 Dose: 40 meq Documented By: JOANNA Vital Signs Vital signs: Vital Signs - 8 hr 01/29/23 23:24 01/30/23 00:15 01/30/23 00:44 Temperature 98.3 F Pulse Rate 102 H 93 H 97 H Respiratory Rate 27 H Blood Pressure 134/76 126/73 133/74 Pulse Oximetry 96 93 97 Oxygen Delivery Method Room Air Room Air Room Air 01/30/23 01:31 01/30/23 02:13 01/30/23 03:35 Temperature Pulse Rate 99 H 101 H 84 Respiratory Rate 16 Blood Pressure 128/80 132/63 128/64 Pulse Oximetry 98 94 96 Oxygen Delivery Method Room Air Room Air Room Air MDM - Abdominal Pain Lab Data 01/29/23 23:50 01/29/23 23:50 Labs: Lab Results 01/29/23 01/29/23 01/29/23 Range/Units 23:50 23:50 23:50 WBC 11.0 (4.5-11.0) X10^3/uL RBC 5.34 (4.5-5.9) X10^6/uL Hgb 16.2 (13.5-17.5) g/dL Hct 46.5 (41-53) % MCV 87.2 (80-100) fL MCH 30.4 (26-34) PG MCHC 34.9 (30-36) % RDW 13.1 (11.6-14.8) % Plt Count 275 (150-400) X10^3/uL Neut % (Auto) 72.4 (50-75) % Lymph % (Auto) 16.0 L (25-40) % Reeves % (Auto) 10.4 (3-14) % Eos % (Auto) 0.1 L (2-4) % Baso % (Auto) 1.1 (0-2) % Neut # (Auto) 8000 H (8456-7555) /uL Lymph # (Auto) 1800 (1396-4488) /uL Reeves # (Auto) 1100 H (0-900) /uL Eos # (Auto) 0 (0-450) /uL Baso # (Auto) 100 (0-100) /uL Sodium 140 (137-145) mmol/L Potassium 3.2 L (3.4-5.1) mmol/L Chloride 102 (98-107) mmol/L Carbon Dioxide 24 (22-32) mmol/L BUN 20 (9-20) mg/dL Creatinine 0.97 (0.66-1.25) mg/dL Estimated GFR > 60 (>60) mL/min BUN/Creatinine Ratio 20.6 (6-22) Glucose 159 H (80-110) mg/dL Lactate 1.2 (0.7-2.1) mmol/L Calcium 8.8 (8.4-10.2) mg/dL Magnesium (1.6-2.3) mg/dL Total Bilirubin 0.9 (0.2-1.3) mg/dL AST 35 (17-59) IU/L ALT 41 (<50) IU/L Alkaline Phosphatase 131 H (38-126) U/L Total Creatine Kinase (55-170) U/L CK-MB (CK-2) (<2.37) ng/mL CK-MB (CK-2) Rel Index (1.5-5.0) % Troponin I (0.01-0.034) ng/mL Total Protein 8.1 (6.3-8.2) g/dL Albumin 4.6 (3.5-5.0) g/dL Globulin 3.5 (1.7-4.1) g/dL Albumin/Globulin Ratio 1.3 (1.0-2.8) Lipase 72 (23-300) U/L Procalcitonin (<0.5) ng/mL Stl C. cayetanensis PCR (Not Detect) Stool Rotavirus (PCR) (Not Detect) Stool Adenovirus (PCR) (Not Detect) Stool Astrovirus (PCR) (Not Detect) Stool Cryptosporidium PCR (Not Detect) Stl E.coli Shiga Tox PCR (Not Detect) St Sh/Enteroin Ecoli PCR (Not Detect) Stool E coli O157 PCR Stl Enterotoxigenic E PCR (Not Detect) Stool EPEC (PCR) (Not Detect) Stl E. histolytica PCR (Not Detect) Stool Giardia Lamblia PCR (Not Detect) Stool Sapovirus (PCR) (Not Detect) Stl P. shigelloides PCR (Not Detect) St Y.enterocolitica PCR (Not Detect) Stool Vibrio (PCR) (Not Detect) Stl Vibrio cholerae PCR (Not Detect) Stl Enteroaggr Ecoli PCR (Not Detect) Stl Norovirus GI/GII PCR (Not Detect) Chlamy pneumoniae PCR (Not Detect) Adenovirus (PCR) (Not Detect) B. pertussis DNA (PCR) (Not Detecte) B.parapertussis DNA PCR (Not Detecte) Campylobacter (PCR) (Not Detect) C. difficile Tox (PCR) (Not Detect) Coronavirus OC43 (PCR) (Not Detect) Coronavirus HKU1 (PCR) (Not Detect) Coronavirus 229E (PCR) (Not Detect) SARS-CoV-2 (PCR) (Not Detecte) Coronavirus NL63 (PCR) (Not Detect) Human Metapneumovir PCR (Not Detect) Influenza Type A (PCR) (Not Detect) Influenza Type B (PCR) (Not Detect) M. pneumoniae (PCR) (Not Detect) Parainfluenza 1 (PCR) (Not Detect) Parainfluenza 2 (PCR) (Not Detect) Parainfluenza 3 (PCR) (Not Detect) Parainfluenza 4 (PCR) (Not Detect) RSV (PCR) (Not Detect) Entero/Rhino (PCR) (Not Detect) Salmonella (PCR) (Not Detect) 01/29/23 01/29/23 01/30/23 Range/Units 23:50 23:50 01:32 WBC (4.5-11.0) X10^3/uL RBC (4.5-5.9) X10^6/uL Hgb (13.5-17.5) g/dL Hct (41-53) % MCV (80-100) fL MCH (26-34) PG MCHC (30-36) % RDW (11.6-14.8) % Plt Count (150-400) X10^3/uL Neut % (Auto) (50-75) % Lymph % (Auto) (25-40) % Reeves % (Auto) (3-14) % Eos % (Auto) (2-4) % Baso % (Auto) (0-2) % Neut # (Auto) (9153-8674) /uL Lymph # (Auto) (3048-7548) /uL Reeves # (Auto) (0-900) /uL Eos # (Auto) (0-450) /uL Baso # (Auto) (0-100) /uL Sodium (137-145) mmol/L Potassium (3.4-5.1) mmol/L Chloride (98-107) mmol/L Carbon Dioxide (22-32) mmol/L BUN (9-20) mg/dL Creatinine (0.66-1.25) mg/dL Estimated GFR (>60) mL/min BUN/Creatinine Ratio (6-22) Glucose (80-110) mg/dL Lactate (0.7-2.1) mmol/L Calcium (8.4-10.2) mg/dL Magnesium 2.1 (1.6-2.3) mg/dL Total Bilirubin (0.2-1.3) mg/dL AST (17-59) IU/L ALT (<50) IU/L Alkaline Phosphatase (38-126) U/L Total Creatine Kinase 141 (55-170) U/L CK-MB (CK-2) 2.23 (<2.37) ng/mL CK-MB (CK-2) Rel Index 1.6 (1.5-5.0) % Troponin I < 0.012 (0.01-0.034) ng/mL Total Protein (6.3-8.2) g/dL Albumin (3.5-5.0) g/dL Globulin (1.7-4.1) g/dL Albumin/Globulin Ratio (1.0-2.8) Lipase (23-300) U/L Procalcitonin 0.13 (<0.5) ng/mL Stl C. cayetanensis PCR Not detected (Not Detect) Stool Rotavirus (PCR) Detected H (Not Detect) Stool Adenovirus (PCR) Not detected (Not Detect) Stool Astrovirus (PCR) Not detected (Not Detect) Stool Cryptosporidium PCR Not detected (Not Detect) Stl E.coli Shiga Tox PCR Not detected (Not Detect) St Sh/Enteroin Ecoli PCR Not detected (Not Detect) Stool E coli O157 PCR Not Reportable Stl Enterotoxigenic E PCR Not detected (Not Detect) Stool EPEC (PCR) Not detected (Not Detect) Stl E. histolytica PCR Not detected (Not Detect) Stool Giardia Lamblia PCR Not detected (Not Detect) Stool Sapovirus (PCR) Not detected (Not Detect) Stl P. shigelloides PCR Not detected (Not Detect) St Y.enterocolitica PCR Not detected (Not Detect) Stool Vibrio (PCR) Not detected (Not Detect) Stl Vibrio cholerae PCR Not detected (Not Detect) Stl Enteroaggr Ecoli PCR Not detected (Not Detect) Stl Norovirus GI/GII PCR Not detected (Not Detect) Chlamy pneumoniae PCR (Not Detect) Adenovirus (PCR) (Not Detect) B. pertussis DNA (PCR) (Not Detecte) B.parapertussis DNA PCR (Not Detecte) Campylobacter (PCR) Not detected (Not Detect) C. difficile Tox (PCR) Not detected (Not Detect) Coronavirus OC43 (PCR) (Not Detect) Coronavirus HKU1 (PCR) (Not Detect) Coronavirus 229E (PCR) (Not Detect) SARS-CoV-2 (PCR) (Not Detecte) Coronavirus NL63 (PCR) (Not Detect) Human Metapneumovir PCR (Not Detect) Influenza Type A (PCR) (Not Detect) Influenza Type B (PCR) (Not Detect) M. pneumoniae (PCR) (Not Detect) Parainfluenza 1 (PCR) (Not Detect) Parainfluenza 2 (PCR) (Not Detect) Parainfluenza 3 (PCR) (Not Detect) Parainfluenza 4 (PCR) (Not Detect) RSV (PCR) (Not Detect) Entero/Rhino (PCR) (Not Detect) Salmonella (PCR) Not detected (Not Detect) 01/30/23 Range/Units 02:10 WBC (4.5-11.0) X10^3/uL RBC (4.5-5.9) X10^6/uL Hgb (13.5-17.5) g/dL Hct (41-53) % MCV (80-100) fL MCH (26-34) PG MCHC (30-36) % RDW (11.6-14.8) % Plt Count (150-400) X10^3/uL Neut % (Auto) (50-75) % Lymph % (Auto) (25-40) % Reeves % (Auto) (3-14) % Eos % (Auto) (2-4) % Baso % (Auto) (0-2) % Neut # (Auto) (0091-2174) /uL Lymph # (Auto) (8083-2147) /uL Reeves # (Auto) (0-900) /uL Eos # (Auto) (0-450) /uL Baso # (Auto) (0-100) /uL Sodium (137-145) mmol/L Potassium (3.4-5.1) mmol/L Chloride (98-107) mmol/L Carbon Dioxide (22-32) mmol/L BUN (9-20) mg/dL Creatinine (0.66-1.25) mg/dL Estimated GFR (>60) mL/min BUN/Creatinine Ratio (6-22) Glucose (80-110) mg/dL Lactate (0.7-2.1) mmol/L Calcium (8.4-10.2) mg/dL Magnesium (1.6-2.3) mg/dL Total Bilirubin (0.2-1.3) mg/dL AST (17-59) IU/L ALT (<50) IU/L Alkaline Phosphatase (38-126) U/L Total Creatine Kinase (55-170) U/L CK-MB (CK-2) (<2.37) ng/mL CK-MB (CK-2) Rel Index (1.5-5.0) % Troponin I (0.01-0.034) ng/mL Total Protein (6.3-8.2) g/dL Albumin (3.5-5.0) g/dL Globulin (1.7-4.1) g/dL Albumin/Globulin Ratio (1.0-2.8) Lipase (23-300) U/L Procalcitonin (<0.5) ng/mL Stl C. cayetanensis PCR (Not Detect) Stool Rotavirus (PCR) (Not Detect) Stool Adenovirus (PCR) (Not Detect) Stool Astrovirus (PCR) (Not Detect) Stool Cryptosporidium PCR (Not Detect) Stl E.coli Shiga Tox PCR (Not Detect) St Sh/Enteroin Ecoli PCR (Not Detect) Stool E coli O157 PCR Stl Enterotoxigenic E PCR (Not Detect) Stool EPEC (PCR) (Not Detect) Stl E. histolytica PCR (Not Detect) Stool Giardia Lamblia PCR (Not Detect) Stool Sapovirus (PCR) (Not Detect) Stl P. shigelloides PCR (Not Detect) St Y.enterocolitica PCR (Not Detect) Stool Vibrio (PCR) (Not Detect) Stl Vibrio cholerae PCR (Not Detect) Stl Enteroaggr Ecoli PCR (Not Detect) Stl Norovirus GI/GII PCR (Not Detect) Chlamy pneumoniae PCR Not detected (Not Detect) Adenovirus (PCR) Not detected (Not Detect) B. pertussis DNA (PCR) Not detected (Not Detecte) B.parapertussis DNA PCR Not detected (Not Detecte) Campylobacter (PCR) (Not Detect) C. difficile Tox (PCR) (Not Detect) Coronavirus OC43 (PCR) Not detected (Not Detect) Coronavirus HKU1 (PCR) Not detected (Not Detect) Coronavirus 229E (PCR) Not detected (Not Detect) SARS-CoV-2 (PCR) Not detected (Not Detecte) Coronavirus NL63 (PCR) Not detected (Not Detect) Human Metapneumovir PCR Not detected (Not Detect) Influenza Type A (PCR) Not detected (Not Detect) Influenza Type B (PCR) Not detected (Not Detect) M. pneumoniae (PCR) Not detected (Not Detect) Parainfluenza 1 (PCR) Not detected (Not Detect) Parainfluenza 2 (PCR) Not detected (Not Detect) Parainfluenza 3 (PCR) Not detected (Not Detect) Parainfluenza 4 (PCR) Not detected (Not Detect) RSV (PCR) Not detected (Not Detect) Entero/Rhino (PCR) Not detected (Not Detect) Salmonella (PCR) (Not Detect) Point of care testing: Urine Dip Bedside Urine Glucose Negative Bedside Urine Bilirubin + 1 Bedside Urine Ketone - Negative Urine Specific [place] 1.030 Bedside Urine Occult Blood - Negative Bedside Urine pH 6.0 Bedside Urine Protein + 30 Bedside Urine Urobilinogen - Negative Bedside Urine Nitrite - Negative Bedside Urine Leukocytes - Negative Esterase Imaging Data Chest x-ray: Radiologist's Impression: [address] [address] XRay Report Signed Patient: Cipriano Clark MR#: [id number] : 1960 Acct:[id number] Age/Sex: 62 / M Date of Service: 01/30/23 Loc: Accession Number: [id number] ?? Procedure: XR chest 1V Ordering Provider: Carleen Recinos D.O. PROCEDURE:? XR CHEST 1V ? INDICATIONS:? n/v/d ? TECHNIQUE:? One view of the chest was acquired.? ? COMPARISON:? [facility], CR, XR CHEST 1V, 08/26/2022, 15:41.? [facility], , XR CHEST 2V, 08/19/2022, 10:24. ? FINDINGS:? ? Surgical changes and devices:? None.? ? Lungs and pleura:? Lungs are clear.? No pleural effusions or pneumothorax.? ? Mediastinum:? Mediastinal contours appear normal.? Heart size is normal.? ? Bones and chest wall:? No suspicious bony lesions.? Overlying soft tissues appear unremarkable.? ? IMPRESSION:? No acute cardiopulmonary abnormality. ? ? ? Dictated by: Evaristo Hernandez M.D. on 01/30/2023 at 1:31 ? ? Approved by: Evaristo Hernandez M.D. on 01/30/2023 at 1:32?? CT scan - abdomen/pelvis: Radiologist's Impression: [address] [address] [address] Scan Report Signed Patient: Cipriano Clark MR#: [id number] : 1960 Acct:[id number] Age/Sex: 62 / M Date of Service: 01/30/23 Loc: ED Accession Number: [id number] ?? Procedure: CT abdomen pelvis w con Ordering Provider: Carleen Recinos D.O. PROCEDURE:? CT ABDOMEN PELVIS W CON ? INDICATIONS:? abd/back pain, vomiting and diarrhea ? TECHNIQUE:? After the administration of IV contrast, axial sections were acquired from the lung bases to the pubic symphysis.? Coronal and sagittal reformats were performed.? For radiation dose reduction, the following was used:? automated exposure control, adjustment of mA and/or kV according to patient size. ? COMPARISON:? None. ? FINDINGS:? Image quality:? Excellent.? ? Lung bases:? Unremarkable.? ? Heart:? No significant findings. ? ? ABDOMEN: Liver:? No focal lesion.? ? Gallbladder:? Not distended. Biliary ducts:? Unremarkable.? ? Pancreas:? No peripancreatic fluid collection. Spleen:? Unremarkable.? ? Adrenal Glands:? Left adrenal nodule measuring 2 cm.? A portion of the nodule is low-density.? Kidneys and Ureters:? No hydronephrosis. ? Stomach and Bowel:? Stomach, small bowel loops, and colon are unremarkable.? Suspect liquid stool contents in the colon.? Normal appendix. Peritoneum:? No abnormal intraperitoneal fluid.? No free air.? ? Ventral Wall: ? No hernia.? Abdominal Nodes:? No retroperitoneal or mesenteric adenopathy by size criteria.? Vessels:? Aorta and inferior vena cava are normal in size.? ? PELVIS: Pelvic Organs:? Unremarkable.? ? Bladder:? Unremarkable.? ? Pelvic Nodes: No enlarged lymph nodes.? Miscellaneous: No inguinal hernias are seen. ? ? ? Bones:? No suspicious lesion.? DDD. Bilateral L5 pars defect with anterolisthesis of L5 on S1 measuring 0.4 cm. ? ? IMPRESSION:? 1. Liquid stool contents in the colon suggesting diarrhea. ? 2. No bowel obstruction.? No free fluid.? Normal appendix. ? 3. Left adrenal nodule measuring 2 cm, indeterminate.? This could represent a benign adenoma.? This could be further characterized with adrenal protocol washout CT or adrenal MRI.? ? Dictated by: Evaristo Hernandez M.D. on 01/30/2023 at 1:43 ? ? Approved by: Evaristo Hernandez M.D. on 01/30/2023 at 1:47?? ECG Data Attestation: I personally reviewed and interpreted this ECG as follows: Interpretation: Sinus rhythm with premature atrial complexes, some ST depression 1 aVL, no elevation Q-wave in lead 3. Slight depressed in V4 5. Rate of 98 UT 134 QRS is 76 QTC 393. Patient has prior from 08/26/2022 1 aVL seem little bit more depressed but on 08/19/2022 appears similar. MDM Narrative Medical decision making narrative: This is a 62-year-old male who presents with complaint of abdominal pain not wish vomiting and diarrhea patient is slightly tachycardic upon arrival. Not hypotensive not febrile. EKG has some ST change but actually appears fairly similar to prior EKGs. CBC shows low lymphocytes, potassium slightly low at 3.2, creatinine, BUN sodium or otherwise normal, glucose 159, LFTs show an alk- phos of 131 but otherwise normal LFTs. Lactate, procalcitonin are negative. Blood cultures are pending. Patient was given fluids, Zofran dose of pain medication, plan for CT abdomen pelvis patient had some mild tachypnea intermittently so chest x-ray was obtained as well as gi panel and patient's EKG has possible ST change although it actually appears pretty similar to priors from August of 2022 troponin was added on and is negative. Patient CT shows adrenal nodule but no other emergent pathology. Chest x-ray is negative. GI panel is positive for rotavirus. Patient was able to tolerate oral potassium here in the department. He is feeling somewhat improved and NR has normalized after some Zofran and fluids and small amount of pain medication. Patient feel comfortable with patient returning home reviewed all of his findings. Discharge Plan Departure Patient Disposition: Home Clinical Impression: Intestinal infection, enteritis due to rotavirus, Abdominal pain, vomiting, and diarrhea, Adrenal nodule Activity Restrictions/Additional Instructions: You have a left adrenal nodule, please follow up with your physician. This could be a benign nodule but follow up for additional workup as felt necessary. Your potassium was slightly low this can often happen when you have been vomiting or having a lot of diarrhea. Bananas care good for replacing potassium and are a good choice off food for recent diarrheal illnesses. You have tested positive for rotavirus on your GI panel (stool sample), this is a viral illness that often leads to vomiting and diarrhea. Treatment is supportive, continue to drink fluids regularly to maintain hydration. You may take 1 tablet of Zofran every 6 hours as needed for nausea or vomiting. Please return if your symptoms are rapidly worsening, if you are having new or worsening abdominal pain, persistent vomiting, signs of dehydration, new bloody stools, lightheadedness or passing out or other new or concerning changes. Prescriptions: No Action omeprazole 20 mg capsule,delayed release(DR/EC) 20 mg PO DAILY Qty: 90 3RF levothyroxine 150 mcg tablet 150 mcg PO DAILY Qty: 90 3RF atorvastatin [Lipitor] 40 mg tablet 40 mg PO HS Qty: 90 1RF Rx Instructions: take a total of 50mg daily atorvastatin 10 mg tablet 10 mg PO BEDTIME Qty: 90 1RF Rx Instructions: take a total of 50mg daily naproxen sodium [Aleve] 220 mg capsule 440 mg PO DAILY PRN mupirocin 2 % ointment 1 applic topical TID Qty: 15 0RF Rx Instructions: antibiotic for skin infection testosterone 50 mg/5 gram (1 %) gel 2 packet transdermal QAM Pneumovax-23 25 mcg/0.5 mL syringe 0.5 ml IM ONCE Qty: 0.5 0RF Rx Instructions: as a single dose trazodone 100 mg tablet 100 mg PO BEDTIME PRN (Reason: insomnia) Qty: 10 0RF albuterol sulfate 90 mcg/actuation HFA aerosol inhaler 2 puff inhalation 6XD PRN (Reason: shortness of breath or wheezing) Qty: 8.5 0RF cyclobenzaprine 10 mg tablet 10 mg PO TID PRN (Reason: muscle spasm) Qty: 14 0RF hydrocodone-acetaminophen 5-325 mg tablet 1 tab PO Q4-6H PRN (Reason: pain) Qty: 10 0RF ketorolac 10 mg tablet 10 mg PO Q6H PRN (Reason: pain) Qty: 14 0RF gabapentin 300 mg capsule 300 mg PO BEDTIME Qty: 14 0RF methylprednisolone [Medrol (Narinder)] 4 mg tablets,dose pack See Rx Instructions .ROUTE .COMPLEX Qty: 21 0RF Rx Instructions: orally per package directions (DME) [employer] Dreamstation CPAP Qty: 1 Dose Instruction: As directed Patient Comments: Pressure: 10-16 cmH2O DME: [facility] Rx Instructions: As directed Referrals: Marlon Esquivel ARNP [Primary Care Provider] - Stand Alone Forms: Patient Portal/API
--- NOTE | 2023-01-30 00:56 | DI.CT.S_ITS ---
PROCEDURE: CT ABDOMEN PELVIS W CON INDICATIONS: abd/back pain, vomiting and diarrhea TECHNIQUE: After the administration of IV contrast, axial sections were acquired from the lung bases to the pubic symphysis. Coronal and sagittal reformats were performed. For radiation dose reduction, the following was used: automated exposure control, adjustment of mA and/or kV according to patient size. COMPARISON: None. FINDINGS: Image quality: Excellent. Lung bases: Unremarkable. Heart: No significant findings. ABDOMEN: Liver: No focal lesion. Gallbladder: Not distended. Biliary ducts: Unremarkable. Pancreas: No peripancreatic fluid collection. Spleen: Unremarkable. Adrenal Glands: Left adrenal nodule measuring 2 cm. A portion of the nodule is low-density. Kidneys and Ureters: No hydronephrosis. Stomach and Bowel: Stomach, small bowel loops, and colon are unremarkable. Suspect liquid stool contents in the colon. Normal appendix. Peritoneum: No abnormal intraperitoneal fluid. No free air. Ventral Wall: No hernia. Abdominal Nodes: No retroperitoneal or mesenteric adenopathy by size criteria. Vessels: Aorta and inferior vena cava are normal in size. PELVIS: Pelvic Organs: Unremarkable. Bladder: Unremarkable. Pelvic Nodes: No enlarged lymph nodes. Miscellaneous: No inguinal hernias are seen. Bones: No suspicious lesion. DDD. Bilateral L5 pars defect with anterolisthesis of L5 on S1 measuring 0.4 cm. IMPRESSION: 1. Liquid stool contents in the colon suggesting diarrhea. 2. No bowel obstruction. No free fluid. Normal appendix. 3. Left adrenal nodule measuring 2 cm, indeterminate. This could represent a benign adenoma. This could be further characterized with adrenal protocol washout CT or adrenal MRI. Dictated by: Evaristo Hernandez M.D. on 01/30/2023 at 1:43 Approved by: Evaristo Hernandez M.D. on 01/30/2023 at 1:47
--- NOTE | 2023-01-30 01:05 | DI.RAD.S_ITS ---
PROCEDURE: XR CHEST 1V INDICATIONS: n/v/d TECHNIQUE: One view of the chest was acquired. COMPARISON: [facility], , XR CHEST 1V, 08/26/2022, 15:41. [facility], CR, XR CHEST 2V, 08/19/2022, 10:24. FINDINGS: Surgical changes and devices: None. Lungs and pleura: Lungs are clear. No pleural effusions or pneumothorax. Mediastinum: Mediastinal contours appear normal. Heart size is normal. Bones and chest wall: No suspicious bony lesions. Overlying soft tissues appear unremarkable. IMPRESSION: No acute cardiopulmonary abnormality. Dictated by: Evaristo Hernandez M.D. on 01/30/2023 at 1:31 Approved by: Evaristo Hernandez M.D. on 01/30/2023 at 1:32
[2023-01-30] MEDS: MORPHINE 2 MG/ML INJ IV (01:13)
[2023-01-30] MEDS: ONDANSETRON 4 MG/2 ML INJ IV (01:13)
[2023-01-30] MEDS: SODIUM CHLORIDE 0.9% 1,000 ML 1000 ML IV (01:13)
[2023-01-30 01:17] LABS: Creatine Kinase 141 U/L (55-170); Lactate (Lactic Acid) 1.2 mmol/L (0.7-2.1); Magnesium 2.1 mg/dL (1.6-2.3)
[2023-01-30 01:30] LABS: Troponin I < 0.012 ng/mL (0.01-0.034)
[2023-01-30 01:31] VITALS: BP 128/80; PULSE 99; O2SAT 98
[2023-01-30 01:32] LABS: CKMB % Relative Index 1.6 % (1.5-5.0); Creatine Kinase MB 2.23 ng/mL (<2.37)
[2023-01-30 01:35] LABS: Procalcitonin 0.13 ng/mL (<0.5)
[2023-01-30] MEDS: POTASSIUM CHLORIDE 20 MEQ/15 ML UDC 40 MEQ PO (01:46)
[2023-01-30 02:13] VITALS: BP 132/63; PULSE 101; O2SAT 94
[2023-01-30 03:19] LABS: Campylobacter Not Detected (Not Detect); Clostridium difficile toxin AB Not Detected (Not Detect); Enteroaggregative E.coli Not Detected (Not Detect); Enteropathogenic E.coli Not Detected (Not Detect); Plesiomonsa shigelloides Not Detected (Not Detect); Salmonella Not Detected (Not Detect); Shigella/Enteroinvasive E.coli Not Detected (Not Detect); Vibrio Not Detected (Not Detect); Vibrio cholerae Not Detected (Not Detect); Yersinia enterocolitica Not Detected (Not Detect)
[2023-01-30 03:20] LABS: Adenovirus F 40/41 Not Detected (Not Detect); Astrovirus Not Detected (Not Detect); Cryptosporidium Not Detected (Not Detect); Cyclospora cayetanensis Not Detected (Not Detect); Entamoeba histolytica Not Detected (Not Detect); Enterotoxigenic E.coli It/st Not Detected (Not Detect); Giardia lamblia Not Detected (Not Detect); Norovirus GI/GII Not Detected (Not Detect); Rotavirus A Detected (Not Detect); Sapovirus Not Detected (Not Detect); Shiga-like toxin-prod E.coli Not Detected (Not Detect)
[2023-01-30 03:35] VITALS: BP 128/64; PULSE 84; RESP 16; O2SAT 96
[2023-01-30] MEDS: ONDANSETRON 4 MG ODT PREPACK 1 BOTTLE MISC (03:40)
[2023-01-30 03:48] LABS: Adenovirus Not Detected (Not Detect); B. parapertussis Not Detected (Not Detecte); Bordetella pertussis Not Detected (Not Detecte); Chlamydophila pneumoniae Not Detected (Not Detect); Coronavirus 229E Not Detected (Not Detect); Coronavirus HKU1 Not Detected (Not Detect); Coronavirus NL 63 Not Detected (Not Detect); Coronavirus OC43 Not Detected (Not Detect); Human Metapneumovirus Not Detected (Not Detect); Human Rhinovirus/Enterovirus Not Detected (Not Detect); Influenza A Not Detected (Not Detect); Influenza B Not Detected (Not Detect); Mycoplasma pneumoniae Not Detected (Not Detect); Parainfluenza Virus 1 Not Detected (Not Detect); Parainfluenza Virus 2 Not Detected (Not Detect); Parainfluenza Virus 3 Not Detected (Not Detect); Parainfluenza Virus 4 Not Detected (Not Detect); Respiratory Syncytial Virus Not Detected (Not Detect); SARS- CoV-2 Not Detected (Not Detecte)
== END 2023-01-30 03:43 | disposition home or self-care (01) ==
PROVIDERS: Emergency Provider Emergency Medicine; PCP Registered Nurse Diabetes Educator
DX: A08.0 Rotaviral enteritis (principal); D35.00 Benign neoplasm of unspecified adrenal gland; I49.1 Atrial premature depolarization
CPT/HCPCS: 36415; 71045; 74177; 80053; 81003; 82550; 82553; 83605; 83690; 83735; 84145; 84484; 85025; 87040; 87507; 87633; 93005; 93010; 96374; 99284; J2270; J2405; Q9967

== ENCOUNTER → 2023-02-18 10:19 | Outpatient (CLI) | payer MEDICARE, MEDICAID, SELFPAY ==
--- NOTE | 2023-02-18 | DI.CT.S_ITS ---
PROCEDURE: CT ABDOMEN WO/W CON INDICATIONS: Other specified disorders of adrenal gland TECHNIQUE: Noncontrast 3 mm thick sections acquired from the diaphragms to the iliac crests. After the administration of intravenous contrast, 3 mm thick venous-phase and 15-minute delayed images acquired from the diaphragms to the iliac crests. For radiation dose reduction, the following was used: automated exposure control, adjustment of mA and/or kV according to patient size. COMPARISON: [facility], CT, CT ABDOMEN PELVIS W CON, 01/30/2023, 1:12. FINDINGS: Image quality: Excellent. Lung bases: Lung bases are clear. Heart size is normal. Adrenal glands: 1.5 x 1.6 x 1.1 cm lesion arising from the medial limb of the left adrenal gland demonstrates Hounsfield units of -9 on unenhanced images. This is diagnostic of a lipid rich adenoma. There is probably a subcentimeter rounded lesion arising from the body of the left adrenal gland too small to characterize. The right adrenal gland is normal. Solid organs: Liver is normal in size and enhancement. Gallbladder is decompressed . Biliary system is non dilated. Pancreas enhances normally. Spleen is normal in size and enhancement. Kidneys are normal in size and enhancement. No hydronephrosis or nephrolithiasis. Peritoneum and bowel: Unenhanced bowel loops are normal in caliber and wall thickness. No free fluid or air. Normal appendix. Nodes and vessels: No retroperitoneal or mesenteric adenopathy by size criteria. Aorta and inferior vena cava are normal in size. Miscellaneous: No ventral hernias. Bones: No suspicious bony lesions. Disc degeneration L2-3 and disc calcification at T11-12. There are L5 pars defects bilaterally. No vertebral body compression fractures. IMPRESSION: 1. 1.6 cm fat containing left adrenal adenoma. 2. Subcentimeter tiny left adrenal body nodule too small to characterize. Dictated by: Nydia Nicole M.D. on 02/18/2023 at 12:45 Approved by: Nydia Nicole M.D. on 02/18/2023 at 12:56
== END ==
PROVIDERS: PCP Registered Nurse Diabetes Educator; Referring Provider Registered Nurse Diabetes Educator; Visit Provider Registered Nurse Diabetes Educator
DX: D35.02 Benign neoplasm of left adrenal gland (principal); E27.8 Other specified disorders of adrenal gland
CPT/HCPCS: 74178; Q9967

== ENCOUNTER → 2023-03-02 07:28 | Outpatient (CLI) | payer MEDICARE, MEDICAID, SELFPAY ==
[2023-03-04 08:31] LABS: Dehydroepiandrosterone Sulfate 34.5 ug/dL (48.9-344.2)
[2023-03-10 23:13] LABS: Renin Activity 1.222 ng/mL/hr (0.167-5.380)
== END ==
PROVIDERS: PCP Registered Nurse Diabetes Educator; Referring Provider Registered Nurse Diabetes Educator; Visit Provider Registered Nurse Diabetes Educator
DX: E27.8 Other specified disorders of adrenal gland (principal)
CPT/HCPCS: 36415; 82088; 82533; 82627; 84244

== ENCOUNTER → 2023-03-27 08:01 | Outpatient (CLI) | payer MEDICARE, MEDICAID, SELFPAY ==
[2023-03-27 09:47] LABS: Alanine Aminotransferase 26 IU/L (<50); Albumin 4.2 g/dL (3.5-5.0); Albumin Globulin Ratio 1.6 (1.0-2.8); Alkaline Phosphatase 114 U/L (38-126); Aspartate Aminotransferase 22 IU/L (17-59); Bilirubin Total 0.6 mg/dL (0.2-1.3); Bilirubin Unconjugated 0.4 mg/dL (0.0-1.1); Globulin 2.6 g/dL (1.7-4.1); HEMOLYSIS < 15 (0-50); Total Protein 6.8 g/dL (6.3-8.2)
[2023-03-27 10:16] LABS: TSH w/ Reflex to FT4 0.87 uIU/mL (0.47-4.68)
== END ==
PROVIDERS: PCP Registered Nurse Diabetes Educator; Referring Provider Registered Nurse Diabetes Educator; Visit Provider Registered Nurse Diabetes Educator
DX: E03.9 Hypothyroidism, unspecified (principal); B35.1 Tinea unguium; Z51.81 Encounter for therapeutic drug level monitoring
CPT/HCPCS: 36415; 80076; 84443

== ENCOUNTER → 2023-05-26 08:51 | Outpatient (CLI) | payer MEDICARE, MEDICAID, SELFPAY ==
[2023-05-26 10:06] LABS: Alanine Aminotransferase 27 IU/L (<50); Albumin 4.3 g/dL (3.5-5.0); Albumin Globulin Ratio 1.4 (1.0-2.8); Alkaline Phosphatase 110 U/L (38-126); Aspartate Aminotransferase 27 IU/L (17-59); Bilirubin Total 0.6 mg/dL (0.2-1.3); Bilirubin Unconjugated 0.5 mg/dL (0.0-1.1); HEMOLYSIS < 15 (0-50); Total Protein 7.3 g/dL (6.3-8.2)
[2023-05-26 10:53] LABS: Vitamin B12 Reflex MMA if <400 338 pg/mL (239-931)
[2023-05-29 06:07] LABS: Methylmalonic Acid,Serum 150 nmol/L (0-378)
== END ==
PROVIDERS: PCP Registered Nurse Diabetes Educator; Referring Provider Registered Nurse Diabetes Educator; Visit Provider Registered Nurse Diabetes Educator
DX: R20.2 Paresthesia of skin (principal); R53.83 Other fatigue; B35.1 Tinea unguium; Z51.81 Encounter for therapeutic drug level monitoring
CPT/HCPCS: 36415; 80076; 82607; 83921

== ENCOUNTER 2023-05-31 20:49 | Emergency (ER) | payer MEDICARE, MEDICAID, SELFPAY ==
[2023-05-31] VITALS (10 sets, daily range): BP systolic 116–167; BP diastolic 64–79; PULSE 89–107; RESP 12–25; TEMP 37.2–37.4; O2SAT 92–94; BMI 38.2
--- NOTE | 2023-05-31 20:51 | DI.RAD.S_ITS ---
PROCEDURE: XR CHEST 1V INDICATIONS: septic TECHNIQUE: One view of the chest was acquired. COMPARISON: [facility], CR, XR CHEST 1V, 01/30/2023, 1:06. FINDINGS: Surgical changes and devices: None. Lungs and pleura: Lungs are clear. No pleural effusions or pneumothorax. Mediastinum: Mediastinal contours appear normal. Heart size is normal. Bones and chest wall: No suspicious bony lesions. Overlying soft tissues appear unremarkable. IMPRESSION: 1. No acute cardiopulmonary disease. Dictated by: Rex Castillo M.D. on 05/31/2023 at 21:45 Approved by: Rex Castillo M.D. on 05/31/2023 at 21:46
[2023-05-31 21:10] LABS: Add Manual Diff / Slide Review NO; Basophils Absolute Auto 100 /uL (0-100); Basophils Percent Auto 0.7 % (0-2); Eosinophils Absolute Auto 100 /uL (0-450); Eosinophils Percent Auto 1.1 % (2-4); Hematocrit 44.8 % (41-53); Hemoglobin 15.6 g/dL (13.5-17.5); Lymphocytes Absolute Auto 1400 /uL (1100-4500); Lymphocytes Percent Auto 12.8 % (25-40); Mean Corpuscular HGB Conc 34.7 % (30-36); Mean Corpuscular Hemoglobin 29.7 PG (26-34); Mean Corpuscular Volume 85.5 fL (80-100); Monocytes Absolute Auto 1100 /uL (0-900); Monocytes Percent Auto 9.7 % (3-14); Neutrophils Absolute Auto 8500 /uL (1500-7000); Neutrophils Percent Auto 75.7 % (50-75); Platelet Count 246 X10^3/uL (150-400); Red Blood Cell Count 5.24 X10^6/uL (4.5-5.9); Red Cell Distribution Width 13.5 % (11.6-14.8); White Blood Cell Count 11.3 X10^3/uL (4.5-11.0)
[2023-05-31 21:11] LABS: Lactate (Lactic Acid) 1.6 mmol/L (0.7-2.1)
[2023-05-31 21:12] LABS: Alanine Aminotransferase 31 IU/L (<50); Albumin 4.5 g/dL (3.5-5.0); Albumin Globulin Ratio 1.3 (1.0-2.8); Alkaline Phosphatase 106 U/L (38-126); Aspartate Aminotransferase 30 IU/L (17-59); BUN Creatinine Ratio 15.3 (6-22); Bilirubin Total 0.8 mg/dL (0.2-1.3); Blood Urea Nitrogen 13 mg/dL (9-20); Calcium 9.3 mg/dL (8.4-10.2); Carbon Dioxide 31 mmol/L (22-32); Chloride 97 mmol/L (98-107); Creatine Kinase 78 U/L (55-170); Estimated Glomerular Filt Rate > 60 mL/min (>60); Globulin 3.6 g/dL (1.7-4.1); Glucose 135 mg/dL (80-110); HEMOLYSIS 15 (0-50); Potassium 4.1 mmol/L (3.4-5.1); Sodium 134 mmol/L (137-145); Total Protein 8.1 g/dL (6.3-8.2)
[2023-05-31 21:24] LABS: Troponin I < 0.012 ng/mL (0.01-0.034)
[2023-05-31 21:29] LABS: Procalcitonin 0.08 ng/mL (<0.5)
--- NOTE | 2023-05-31 21:52 | DI.CT.S_ITS ---
PROCEDURE: CT CHEST ABD PEL W CON INDICATIONS: sepsis TECHNIQUE: After the administration of intravenous contrast, axial sections acquired from the supraclavicular neck to the pubic symphysis. Coronal and sagittal reformats were performed. For radiation dose reduction, the following was used: automated exposure control, adjustment of mA and/or kV according to patient size. COMPARISON: [facility], CT, CT ABDOMEN WO/W CON, 02/18/2023, 10:26. [facility], CT, CT ABDOMEN PELVIS W CON, 01/30/2023, 1:12. FINDINGS: Image quality: Excellent. CHEST: Lower Neck: No lymphadenopathy by size criteria. Thyroid: Visualized thyroid demonstrates no discrete nodules. Axillae: No lymphadenopathy by size criteria. Chest Wall: Unremarkable. Lungs and Airways: No acute consolidation. There is minimal dependent atelectasis. The trachea and central airways are patent. Pleura: No pneumothorax or pleural effusions. Heart: Heart size is normal. No pericardial effusion. Thoracic Vessels: The aorta and pulmonary arteries are normal in size. Mediastinum and Sylvia: No lymphadenopathy by size criteria. Esophagus: No wall thickening. No hiatal hernia. ABDOMEN: Liver: No mass lesion. Gallbladder: Within normal limits without calcified gallstones. Biliary ducts: No biliary ductal dilatation. Pancreas: Unremarkable. Spleen: Normal in size. Adrenal Glands: There is a left adrenal nodule measuring up to 2.1 cm which appears unchanged in size from the prior study. Kidneys and Ureters: No hydronephrosis. Stomach and Bowel: Stomach, small bowel loops, and colon are normal in caliber and wall thickness. The appendix is normal. Peritoneum: No abnormal intraperitoneal fluid. No free air. Ventral Wall: No hernia. Abdominal Nodes: No retroperitoneal or mesenteric adenopathy by size criteria. Vessels: Aorta and inferior vena cava are normal in size. PELVIS: Pelvic Organs: Unremarkable. Bladder: Unremarkable. Pelvic Nodes: No enlarged lymph nodes. Miscellaneous: No inguinal hernias are seen. Bones: There are bilateral pars defects at L5 with anterolisthesis of L5 on S1 measuring approximately 0.6 cm. There is severe degenerative disc disease also noted at L5-S1. Visualized osseous structures demonstrate no suspicious focal lesions. IMPRESSION: 1. No definite acute abnormality in the chest, abdomen, or pelvis. 2. Left adrenal nodule consistent with an adenoma on the prior CT appears stable in size. Dictated by: Rex Castillo M.D. on 05/31/2023 at 23:48 Approved by: Rex Castillo M.D. on 05/31/2023 at 23:52
[2023-05-31] MEDS: ONDANSETRON 4 MG/2 ML INJ IV (21:56)
[2023-05-31] MEDS: LACTATED RINGERS 684 ML IV (21:59)
[2023-05-31] MEDS: cefTRIAXone 2,000 MG in SODIUM CHLORIDE 0.9% 100 ML 200 MG IV (22:05)
--- NOTE | 2023-05-31 22:38 | PC.NURSE ---
Pt took 2x advil around 1400 today for his headache.
[2023-05-31 22:41] LABS: Adenovirus Not Detected (Not Detect); SARS- CoV-2 Detected (Not Detecte)
[2023-05-31 22:42] LABS: B. parapertussis Not Detected (Not Detecte); Bordetella pertussis Not Detected (Not Detecte); Chlamydophila pneumoniae Not Detected (Not Detect); Coronavirus 229E Not Detected (Not Detect); Coronavirus HKU1 Not Detected (Not Detect); Coronavirus NL 63 Not Detected (Not Detect); Coronavirus OC43 Not Detected (Not Detect); Human Metapneumovirus Not Detected (Not Detect); Human Rhinovirus/Enterovirus Not Detected (Not Detect); Influenza A Not Detected (Not Detect); Influenza B Not Detected (Not Detect); Mycoplasma pneumoniae Not Detected (Not Detect); Parainfluenza Virus 1 Not Detected (Not Detect); Parainfluenza Virus 2 Not Detected (Not Detect); Parainfluenza Virus 3 Not Detected (Not Detect); Parainfluenza Virus 4 Not Detected (Not Detect); Respiratory Syncytial Virus Not Detected (Not Detect)
[2023-05-31] MEDS: ACETAMINOPHEN 325 MG TABLET 975 MG PO (22:49)
--- NOTE | 2023-05-31 22:58 | ED_ITS ---
HPI - Fever General Chief Complaint: Fever Stated Complaint: Fever, Confusion Time Seen by Provider: 05/31/23 20:51 Source: EMS Mode of arrival: EMS History of Present Illness HPI Narrative: 62-year-old male former smoker with history of hypertension, hypothyroid presents by EMS for evaluation of fever and confusion. He states he is had fever since this morning and had a brief episode of confusion this morning but that resolved long ago. He otherwise has body aches and a mild headache. He recently traveled in his significant other is also been sick. He denies N/V/D and no abdominal pain. He had almost all of his COVID vaccines. Related Data Home Medications Medication Instructions Recorded Confirmed [employer] Dreamstation CPAP #1 ea 04/06/19 05/26/23 naproxen sodium 220 mg capsule 440 mg PO DAILY PRN 04/04/21 05/26/23 (Aleve) testosterone 1 % (25 mg/2.5 gram) 1 packet topical DAILY 05/26/23 05/26/23 transdermal gel packet Previous Rx's Medication Instructions Recorded mupirocin 2 % topical ointment 1 applic topical TID #15 grams 06/05/22 pneumococcal 23-camila ps vaccine 25 0.5 ml IM ONCE #0.5 mL 09/29/22 mcg/0.5 mL injection syringe (Pneumovax-23) omeprazole 20 mg capsule,delayed 20 mg PO DAILY #90 caps 02/09/23 release rosuvastatin 40 mg tablet 40 mg PO DAILY #90 tabs 02/09/23 amlodipine 2.5 mg-benazepril 10 mg 1 cap PO DAILY #30 caps 05/26/23 capsule levothyroxine 175 mcg tablet 175 mcg PO DAILY #90 tabs 05/26/23 terbinafine HCl 250 mg tablet 250 mg PO DAILY 12 weeks #84 tabs 05/26/23 Allergies Allergy/AdvReac Type Severity Reaction Status Date / Time adhesive Allergy Verified 05/26/23 08:02 Review of Systems Review of Systems Narrative: GENERAL: See HPI HEENT: Denies sinus pain, ear pain, sore throat, difficulty swallowing, dizzin ess. RESPIRATORY: Denies dyspnea, cough, wheezing, hemoptysis, sputum. CARDIOVASCULAR: Denies chest pain, palpitations, orthopnea, edema, GASTROINTESTINAL: Denies nausea, vomiting, abdominal pain, diarrhea, constipation, melena. : Denies dysuria, frequency, incontinence, hematuria, urinary retention. MUSCULOSKELETAL: denies weakness, joint pain, or bony pain SKIN: Denies rash, skin lesions, or other NEUROLOGIC: See HPI PSYCHIATRIC: No concerning psychosocial issues. 12 point review of systems is negative except for those stated above Patient History Medical History Anxiety Chronic back pain (1975) Chronic low back pain without sciatica Colon polyps (2015) Depression Diabetes mellitus type 2, diet-controlled Eczema Elevated alkaline phosphatase level Elevated glucose Essential hypertension Generalized headaches GERD (gastroesophageal reflux disease) Hamstring tightness of right lower extremity Hx of brain damage (1959) Hyperlipemia Hyperthyroidism Hypertriglyceridemia Insomnia Obstructive sleep apnea of adult Prediabetes (06/2020) Skin tag Sleep apnea Snoring Vertigo (2016) Surgical History History of surgery on arm (2010) Status post knee surgery (2005) Status post knee surgery (2011) Family History Brother Age: 66 Heart disease Hypertension Hyperlipidemia Father Age: 91 Cancer Hyperlipidemia Brother Cancer Social History Smoking Status: Former smoker Tobacco: How many years used: 29 second hand exposure: Yes (once in a while, but not much.) alcohol intake: former substance use type: does not use Smoking Status: Former smoker alcohol intake frequency: holidays/special occasions only Substance Use Type: does not use Exam Narrative Exam Narrative: GENERAL: [62] year old patient appears stated age. Well-developed patient, in mild distress. HEAD: Atraumatic. Normocephalic. EYES: Pupils equal round and reactive. Extraocular motions intact. No scleral icterus. No injection or drainage. ENT: Nose without bleeding, purulent drainage. Throat without erythema, tonsillar hypertrophy or exudate. Airway patent. NECK: Trachea midline. Non tender CARDIOVASCULAR: Regular rate and rhythm without murmurs, gallops, or rubs. RESPIRATORY: Clear to auscultation. Breath sounds equal bilaterally. No wheezes, rales, or rhonchi. GASTROINTESTINAL: Abdomen soft, non-tender, nondistended. EXTREMITIES: No edema or joint tenderness. BACK: Nontender without deformity or crepitance. No flank tenderness. NEURO: AOx3. SKIN: No rash or erythema of visible areas Initial Vital Signs Initial Vital Signs: Vital Signs Temperature 98.9 F 05/31/23 20:58 Respiratory Rate 20 05/31/23 20:58 Course Orders Ordered: ED Orders 05/31/23 20:50 Complete Blood Count AUTO DIFF Stat Comprehensive Metabolic Panel Stat Lactate (Lactic Acid) Stat Procalcitonin Stat Troponin & CK Cardiac Panel Stat 05/31/23 20:51 XR chest 1V Stat Urinalysis and Microscopic Stat 05/31/23 21:14 Respiratory Panel (Film Array) Stat 05/31/23 21:35 Blood Culture Stat 05/31/23 21:52 CT chest abd pel w con Stat Lactated Ringer's (Lactated Ringers) 2,052 mls @ 684 mls/hr 30 ml/kg infuse over 3 hr (2052 ml) IV NOW ONE Stop: 06/01/23 00:50 Last Infusion: 05/31/23 22:20 Dose: 684 mls/hr Documented By: Infusion: 05/31/23 22:02 Dose: 0 mls/hr Documented By: Admin: 05/31/23 21:59 Dose: 684 mls/hr Documented By: ABIGAIL Discontinued Medications Acetaminophen (Acetaminophen 325 Mg Tablet) 975 mg PO NOW ONE Stop: 05/31/23 22:44 Last Admin: 05/31/23 22:49 Dose: 975 mg Documented By: ABIGAIL Ceftriaxone Sodium 2,000 mg/ (Sodium Chloride) 100 mls @ 200 mls/hr IV NOW ONE Stop: 05/31/23 21:53 Last Infusion: 05/31/23 22:51 Dose: 0 mls/hr Documented By: Infusion: 05/31/23 22:18 Dose: 200 mls/hr Documented By: Infusion: 05/31/23 22:08 Dose: 0 mls/hr Documented By: Admin: 05/31/23 22:05 Dose: 200 mls/hr Documented By: ABIGAIL Ondansetron HCl (Ondansetron 4 Mg/2 Ml Inj) 4 mg IV NOW ONE Stop: 05/31/23 21:48 Last Admin: 05/31/23 21:56 Dose: 4 mg Documented By: ABIGAIL Vital Signs Vital signs: Vital Signs - 8 hr 08/13/23 20:58 05/31/23 21:02 05/31/23 21:48 Temperature 98.9 F 98.9 F Pulse Rate 107 H 104 H Respiratory Rate 20 20 12 Blood Pressure 167/77 H 119/79 Pulse Oximetry 94 93 Oxygen Delivery Method Room Air Room Air 05/31/23 21:45 05/31/23 21:59 05/31/23 22:00 Temperature Pulse Rate 104 H 94 H Respiratory Rate 21 25 H Blood Pressure 116/64 Pulse Oximetry 94 94 Oxygen Delivery Method Room Air 05/31/23 22:14 05/31/23 22:15 05/31/23 22:30 Temperature Pulse Rate 91 H 89 Respiratory Rate 22 Blood Pressure 153/75 H Pulse Oximetry 92 93 Oxygen Delivery Method Room Air Room Air 05/31/23 22:30 05/31/23 22:49 06/01/23 00:29 Temperature 99.3 F 98.4 F Pulse Rate 97 H Respiratory Rate 25 H Blood Pressure Pulse Oximetry 94 Oxygen Delivery Method Room Air MDM - Fever Lab Data 05/31/23 20:50 05/31/23 20:50 Labs: Lab Results 05/31/23 05/31/23 05/31/23 Range/Units 20:50 20:50 20:50 WBC 11.3 H (4.5-11.0) X10^3/uL RBC 5.24 (4.5-5.9) X10^6/uL Hgb 15.6 (13.5-17.5) g/dL Hct 44.8 (41-53) % MCV 85.5 (80-100) fL MCH 29.7 (26-34) PG MCHC 34.7 (30-36) % RDW 13.5 (11.6-14.8) % Plt Count 246 (150-400) X10^3/uL Neut % (Auto) 75.7 H (50-75) % Lymph % (Auto) 12.8 L (25-40) % [place] % (Auto) 9.7 (3-14) % Eos % (Auto) 1.1 L (2-4) % Baso % (Auto) 0.7 (0-2) % Neut # (Auto) 8500 H (8752-1441) /uL Lymph # (Auto) 1400 (1058-4855) /uL [place] # (Auto) 1100 H (0-900) /uL Eos # (Auto) 100 (0-450) /uL Baso # (Auto) 100 (0-100) /uL Sodium 134 L (137-145) mmol/L Potassium 4.1 (3.4-5.1) mmol/L Chloride 97 L (98-107) mmol/L Carbon Dioxide 31 (22-32) mmol/L BUN 13 (9-20) mg/dL Creatinine 0.85 (0.66-1.25) mg/dL Estimated GFR > 60 (>60) mL/min BUN/Creatinine Ratio 15.3 (6-22) Glucose 135 H (80-110) mg/dL Lactate 1.6 (0.7-2.1) mmol/L Calcium 9.3 (8.4-10.2) mg/dL Total Bilirubin 0.8 (0.2-1.3) mg/dL AST 30 (17-59) IU/L ALT 31 (<50) IU/L Alkaline Phosphatase 106 (38-126) U/L Total Creatine Kinase 78 (55-170) U/L Troponin I < 0.012 (0.01-0.034) ng/mL Total Protein 8.1 (6.3-8.2) g/dL Albumin 4.5 (3.5-5.0) g/dL Globulin 3.6 (1.7-4.1) g/dL Albumin/Globulin Ratio 1.3 (1.0-2.8) Procalcitonin 0.08 (<0.5) ng/mL Chlamy pneumoniae PCR (Not Detect) Adenovirus (PCR) (Not Detect) B. pertussis DNA (PCR) (Not Detecte) B.parapertussis DNA PCR (Not Detecte) Coronavirus OC43 (PCR) (Not Detect) Coronavirus HKU1 (PCR) (Not Detect) Coronavirus 229E (PCR) (Not Detect) SARS-CoV-2 (PCR) (Not Detecte) Coronavirus NL63 (PCR) (Not Detect) Human Metapneumovir PCR (Not Detect) Influenza Type A (PCR) (Not Detect) Influenza Type B (PCR) (Not Detect) M. pneumoniae (PCR) (Not Detect) Parainfluenza 1 (PCR) (Not Detect) Parainfluenza 2 (PCR) (Not Detect) Parainfluenza 3 (PCR) (Not Detect) Parainfluenza 4 (PCR) (Not Detect) RSV (PCR) (Not Detect) Entero/Rhino (PCR) (Not Detect) 05/31/23 Range/Units 21:14 WBC (4.5-11.0) X10^3/uL RBC (4.5-5.9) X10^6/uL Hgb (13.5-17.5) g/dL Hct (41-53) % MCV (80-100) fL MCH (26-34) PG MCHC (30-36) % RDW (11.6-14.8) % Plt Count (150-400) X10^3/uL Neut % (Auto) (50-75) % Lymph % (Auto) (25-40) % [place] % (Auto) (3-14) % Eos % (Auto) (2-4) % Baso % (Auto) (0-2) % Neut # (Auto) (2761-4026) /uL Lymph # (Auto) (5568-4488) /uL [place] # (Auto) (0-900) /uL Eos # (Auto) (0-450) /uL Baso # (Auto) (0-100) /uL Sodium (137-145) mmol/L Potassium (3.4-5.1) mmol/L Chloride (98-107) mmol/L Carbon Dioxide (22-32) mmol/L BUN (9-20) mg/dL Creatinine (0.66-1.25) mg/dL Estimated GFR (>60) mL/min BUN/Creatinine Ratio (6-22) Glucose (80-110) mg/dL Lactate (0.7-2.1) mmol/L Calcium (8.4-10.2) mg/dL Total Bilirubin (0.2-1.3) mg/dL AST (17-59) IU/L ALT (<50) IU/L Alkaline Phosphatase (38-126) U/L Total Creatine Kinase (55-170) U/L Troponin I (0.01-0.034) ng/mL Total Protein (6.3-8.2) g/dL Albumin (3.5-5.0) g/dL Globulin (1.7-4.1) g/dL Albumin/Globulin Ratio (1.0-2.8) Procalcitonin (<0.5) ng/mL Chlamy pneumoniae PCR Not detected (Not Detect) Adenovirus (PCR) Not detected (Not Detect) B. pertussis DNA (PCR) Not detected (Not Detecte) B.parapertussis DNA PCR Not detected (Not Detecte) Coronavirus OC43 (PCR) Not detected (Not Detect) Coronavirus HKU1 (PCR) Not detected (Not Detect) Coronavirus 229E (PCR) Not detected (Not Detect) SARS-CoV-2 (PCR) Detected H (Not Detecte) Coronavirus NL63 (PCR) Not detected (Not Detect) Human Metapneumovir PCR Not detected (Not Detect) Influenza Type A (PCR) Not detected (Not Detect) Influenza Type B (PCR) Not detected (Not Detect) M. pneumoniae (PCR) Not detected (Not Detect) Parainfluenza 1 (PCR) Not detected (Not Detect) Parainfluenza 2 (PCR) Not detected (Not Detect) Parainfluenza 3 (PCR) Not detected (Not Detect) Parainfluenza 4 (PCR) Not detected (Not Detect) RSV (PCR) Not detected (Not Detect) Entero/Rhino (PCR) Not detected (Not Detect) Urine Dip Bedside Urine Glucose Negative Bedside Urine Bilirubin - Negative Bedside Urine Ketone - Negative Urine Specific [place] 1.015 Bedside Urine Occult Blood - Negative Bedside Urine pH 6.0 Bedside Urine Protein - Negative Bedside Urine Urobilinogen - Negative Bedside Urine Nitrite - Negative MDM Narrative Medical decision making narrative: CC: 62-year-old male with fever and body aches Complicating co-morbidities: Age, hypothyroid, hypertension Data collected from: Patient Medical records reviewed: Prior notes reviewed in our EMR Differential considered, but not limited to: Pneumonia versus UTI versus bacteremia versus abdominal infection versus viral upper respiratory infection Exam documented above, pertinent findings include: Heart rate regular, lungs clear, alert and oriented, abdomen soft and nontender. Lab Test results independently reviewed as above. Pertinent findings:WBC 11.3 slight left shift. Electrolytes within normal, lactate and procalcitonin normal, respiratory panel demonstrates COVID Independently reviewed EKG as above Imaging studies independently reviewed: CT Chest/Abd/Pelvis: No significant abnormal findings Treatments: Fluids, Rocephin, Tylenol Re-evaluations: Patient demonstrates improved body aches and headache, no significant work of breathing, no hypoxemia Discussion: 62-year-old male with recent travel presents with body aches and fever, he is hemodynamically stable, alert and oriented, shows no signs of respiratory distress. Labs are largely reassuring, respiratory panel notes COVID. Imaging demonstrates no significant findings. No indication for hospitalization or further workup. He is feeling much better after above-stated therapies. We did discuss the utility of a Paxlovid prescription but after discussion of risks and benefits he would prefer to hold off and treat with [id number] medications Disposition: see below, along with detailed discharge instructions that have been reviewed with patient as well as indications for ED re-evaluation and additional outpatient follow up Discharge Plan Departure Patient Disposition: Home Clinical Impression: COVID-19 Instructions: COVID-19 Activity Restrictions/Additional Instructions: *You have been diagnosed with [ COVID-19] *What to do: ?* per recommendations from the CDC and the [facility] Department of Health ?* stay home except to get medical care. ?Restrict activities outside your home, except for getting medical care. ?Do not go to work, school, or public areas. ?Avoid using public transportation, ride sharing, or taxis. ?* separate yourself from other people in your home. ?* call ahead before visiting your doctor ?* Wear a facemask ?* Cover your coughs and sneezes ?* Clean your hands often ?* Avoid sharing household items ?* Clean all high-touch services every day ?* Monitor your symptoms and seek prompt medical attention if your illness is worsening, particularly with difficulty in breathing. You may discontinue your isolation when: ?1. You have been fever-free for at least 24 hours without the use of fever reducing medication, AND ?2. Your symptoms are getting better, AND ?3. At least 5 days have passed since symptoms first appeared ?4. If you have fever, continue to stay home until fever resolves Individuals with laboratory confirmed COVID-19 who have not had any symptoms may discontinue home isolation when at least 5 days have passed since the date of their first COVID-19 diagnostic test and have had no subsequent illness You should notifiy any friends and family that have been in close contact *If up to date on COVID Vaccines, then they do not need to quarantine unless symptoms develop. Get tested on day 5 (or sooner if symptoms develop). Take precautions and watch for symptoms until day 10 *If NOT up to date on COVID Vaccines, then CDC recommends quarantine for at least 5 full days. Wear a well fitted mask at home if you must be around others. If they ?develop symptoms they should get tested. If they remain asymptomatic they should get tested on day 5. They should take precautions and monitor for symptoms until day 10. Prescriptions: No Action naproxen sodium [Aleve] 220 mg capsule 440 mg PO DAILY PRN mupirocin 2 % ointment 1 applic topical TID Qty: 15 0RF Rx Instructions: antibiotic for skin infection testosterone 1 % (25 mg/2.5gram) gel in packet 1 packet topical DAILY amlodipine-benazepril 2.5-10 mg capsule 1 cap PO DAILY Qty: 30 2RF terbinafine HCl 250 mg tablet 250 mg PO DAILY 84 Days Qty: 84 0RF Rx Instructions: PLEASE REMEMBER TO GET REPEAT LIVER TEST DONE AFTER 6 WEEKS--LAB ORDER IS IN levothyroxine 175 mcg tablet 175 mcg PO DAILY Qty: 90 3RF Pneumovax-23 25 mcg/0.5 mL syringe 0.5 ml IM ONCE Qty: 0.5 0RF Rx Instructions: as a single dose rosuvastatin 40 mg tablet 40 mg PO DAILY Qty: 90 3RF omeprazole 20 mg capsule,delayed release(DR/EC) 20 mg PO DAILY Qty: 90 3RF (DME) [employer] Dreamstation CPAP Qty: 1 Dose Instruction: As directed Patient Comments: Pressure: 10-16 cmH2O DME: [facility] Rx Instructions: As directed Referrals: Marlon Esquivel ARNP [Primary Care Provider] - Stand Alone Forms: Patient Portal/API
[2023-06-01 00:29] VITALS: TEMP 36.9
[2023-06-01 00:59] VITALS: TEMP 37.1
[2023-06-01 01:00] VITALS: BP 146/72; PULSE 71; RESP 18; TEMP 37.1; O2SAT 95
== END 2023-06-01 01:02 | disposition home or self-care (01) ==
PROVIDERS: Emergency Provider Emergency Medicine; PCP Registered Nurse Diabetes Educator
DX: U07.1 COVID-19 (principal); R41.0 Disorientation, unspecified; Z20.822 Contact with and (suspected) exposure to COVID-19
CPT/HCPCS: 36415; 71045; 71260; 74177; 80053; 81003; 82550; 83605; 84145; 84484; 85025; 87040; 87633; 93005; 96365; 96375; 99284; J0696; J2405; Q9967

== ENCOUNTER 2023-06-02 10:56 | Emergency (ER) | payer MEDICARE, MEDICAID, SELFPAY ==
[2023-06-02 10:58] VITALS: BP 136/87; PULSE 96; RESP 18; TEMP 37.3; O2SAT 93; BMI 38.2
--- NOTE | 2023-06-02 11:05 | ED_ITS ---
HPI - Headache <Urban Galaviz PA-C - Last Filed: 06/02/23 13:17> General Chief Complaint: Headache Stated Complaint: covid+ Time Seen by Provider: 06/02/23 11:04 Mode of arrival: EMS History of Present Illness HPI Narrative: 62-year-old male with past medical history hypertension, hyperlipidemia, hypothyroidism presents to the ED with 2 days of COVID related symptoms. Patient was diagnosed with COVID 2 days ago, comes in today to the ED due to worsening malaise, myalgias, headache, nausea, vomiting, cough, fever. Patient denies chest pain, shortness of breath, abdominal pain, diarrhea. Related Data Home Medications Medication Instructions Recorded Confirmed [employer] Dreamstation CPAP #1 ea 04/06/19 05/26/23 naproxen sodium 220 mg capsule 440 mg PO DAILY PRN 04/04/21 05/26/23 (Aleve) testosterone 1 % (25 mg/2.5 gram) 1 packet topical DAILY 05/26/23 05/26/23 transdermal gel packet Previous Rx's Medication Instructions Recorded mupirocin 2 % topical ointment 1 applic topical TID #15 grams 06/05/22 pneumococcal 23-camila ps vaccine 25 0.5 ml IM ONCE #0.5 mL 09/29/22 mcg/0.5 mL injection syringe (Pneumovax-23) omeprazole 20 mg capsule,delayed 20 mg PO DAILY #90 caps 02/09/23 release rosuvastatin 40 mg tablet 40 mg PO DAILY #90 tabs 02/09/23 amlodipine 2.5 mg-benazepril 10 mg 1 cap PO DAILY #30 caps 05/26/23 capsule levothyroxine 175 mcg tablet 175 mcg PO DAILY #90 tabs 05/26/23 terbinafine HCl 250 mg tablet 250 mg PO DAILY 12 weeks #84 tabs 05/26/23 Allergies Allergy/AdvReac Type Severity Reaction Status Date / Time adhesive Allergy Verified 05/26/23 08:02 Review of Systems <Urban Galaviz PA-C - Last Filed: 06/02/23 13:17> Review of Systems ROS Unobtainable: All systems reviewed & are unremarkable except as noted in HPI and below Constitutional Constitutional: Reports body ache(s), Denies chills, Reports fatigue, Denies fever(s), Denies frequent falls, Reports headache(s), Denies lethargy, Reports malaise and Denies weakness Eyes Eyes: Denies change in vision, Denies eye discharge, Denies irritation and Denies loss of vision ENT Ears, Nose, Mouth, and Throat: Denies change in voice, Denies dizziness, Reports headache(s), Denies neck pain, Denies sore throat and Denies throat swelling Cardiovascular Cardiovascular: Denies chest pain, Denies irregular heart rhythm, Denies lightheadedness, Denies palpitations, Denies dyspnea, Denies dyspnea on exertion and Denies orthopnea Respiratory Respiratory: Reports cough, Denies dyspnea, Denies dyspnea on exertion and Denies wheezing Gastrointestinal Gastrointestinal: Denies abdominal pain, Denies change in bowel habits, Denies diarrhea, Reports nausea and Reports vomiting Genitourinary Genitourinary: Denies hematuria, Denies flank pain, Denies urinary incontinence and Denies urinary urgency Musculoskeletal Musculoskeletal: Denies back pain, Denies muscle weakness, Denies neck pain, Denies numbness and Denies tingling Integumentary/Breasts Skin/Breast: Denies pruritus, Denies erythema, Denies rash and Denies wounds Neurologic Neurologic: Denies behavioral changes, Denies confusion, Denies dizziness, Denies frequent falls, Reports headache(s), Denies loss of vision, Denies numbness, Denies tingling and Denies weakness Psychiatric Psychiatric: Denies anxiety, Denies behavioral changes, Denies confusion, Denies depression, Denies homicidal ideation and Denies suicidal ideation Endocrine Endocrine: Reports fatigue, Denies flushing and Denies palpitations Hematologic/Lymphatic Hematologic/Lymphatic: Denies easy bruising Allergic/Immunologic Allergic/Immunologic: Denies urticaria, Denies throat swelling and Denies wheezing Patient History <Urban Galaviz PA-C - Last Filed: 06/02/23 13:17> Medical History Anxiety Chronic back pain (1975) Chronic low back pain without sciatica Colon polyps (2015) Depression Diabetes mellitus type 2, diet-controlled Eczema Elevated alkaline phosphatase level Elevated glucose Essential hypertension Generalized headaches GERD (gastroesophageal reflux disease) Hamstring tightness of right lower extremity Hx of brain damage (1959) Hyperlipemia Hyperthyroidism Hypertriglyceridemia Insomnia Obstructive sleep apnea of adult Prediabetes (06/2020) Skin tag Sleep apnea Snoring Vertigo (2017) Surgical History History of surgery on arm (2010) Status post knee surgery (2005) Status post knee surgery (2011) Family History Brother Age: 66 Heart disease Hypertension Hyperlipidemia Father Age: 91 Cancer Hyperlipidemia Brother Cancer Social History Smoking Status: Former smoker Tobacco: How many years used: 29 second hand exposure: Yes (once in a while, but not much.) alcohol intake: former substance use type: does not use Smoking Status: Former smoker alcohol intake frequency: holidays/special occasions only Substance Use Type: does not use Exam <Urban Galaviz PA-C - Last Filed: 06/02/23 13:17> Narrative Exam Narrative: Const General:?cooperative, healthy appearing and comfortable HENMT Head:?normal to inspection Ears:?hearing grossly normal bilaterally Nose:?external nose normal Face and sinus:?normal facial exam and sinuses nontender Mouth:?oral mucosae normal Throat:?posterior oropharynx normal Eyes General:?appearance normal, both eyes and all related structures Neck Neck:?normal visual inspection and no lymphadenopathy noted Resp Effort & Inspection:?normal respiratory effort Auscultation:?clear to auscultation bilaterally Cardio Rate:?regular rate Rhythm:?regular rhythm Neuro General:?patient alert, patient awake and patient oriented x3 Initial Vital Signs Initial Vital Signs: Vital Signs Temperature 99.1 F 06/02/23 10:58 Pulse Rate 96 H 06/02/23 10:58 Respiratory Rate 18 06/02/23 10:58 Blood Pressure 136/87 06/02/23 10:58 Pulse Oximetry 93 06/02/23 10:58 Oxygen Delivery Method Room Air 06/02/23 10:58 <Carleen Recinos DO - Last Filed: 06/03/23 08:55> Initial Vital Signs Initial Vital Signs: Vital Signs Temperature 99.1 F 06/02/23 10:58 Pulse Rate 96 H 06/02/23 10:58 Respiratory Rate 18 06/02/23 10:58 Blood Pressure 136/87 06/02/23 10:58 Pulse Oximetry 93 06/02/23 10:58 Oxygen Delivery Method Room Air 06/02/23 10:58 Course <Urban Galaviz PA-C - Last Filed: 06/02/23 13:17> Orders Ordered: Discontinued Medications Acetaminophen (Acetaminophen 325 Mg Tablet) 975 mg PO NOW ONE Stop: 06/02/23 11:16 Last Admin: 06/02/23 12:25 Dose: 975 mg Documented By: BS Diphenhydramine HCl (Diphenhydramine 50 Mg/Ml Vial) 25 mg IV NOW ONE Stop: 06/02/23 11:16 Last Admin: 06/02/23 12:24 Dose: 25 mg Documented By: BS Sodium Chloride (Normal Saline 0.9%) 1,000 mls @ 1,000 mls/hr IV BOLUS ONE Stop: 06/02/23 12:14 Last Infusion: 06/02/23 13:28 Dose: 0 mls/hr Documented By: Admin: 06/02/23 12:24 Dose: 1,000 mls/hr Documented By: BS Ketorolac Tromethamine (Ketorolac 30 Mg/Ml Vial) 15 mg IV NOW ONE Stop: 06/02/23 11:16 Last Admin: 06/02/23 12:24 Dose: 15 mg Documented By: BS Metoclopramide HCl (Metoclopramide 10 Mg/2 Ml Inj) 10 mg IV NOW ONE Stop: 06/02/23 11:16 Last Admin: 06/02/23 12:24 Dose: 10 mg Documented By: HARSHIL Vital Signs Vital signs: Vital Signs - 8 hr 06/02/23 10:58 Temperature 99.1 F Pulse Rate 96 H Respiratory Rate 18 Blood Pressure 136/87 Pulse Oximetry 93 Oxygen Delivery Method Room Air <Carleen Recinos DO - Last Filed: 06/03/23 08:55> Orders Ordered: Discontinued Medications Acetaminophen (Acetaminophen 325 Mg Tablet) 975 mg PO NOW ONE Stop: 06/02/23 11:16 Last Admin: 06/02/23 12:25 Dose: 975 mg Documented By: BS Diphenhydramine HCl (Diphenhydramine 50 Mg/Ml Vial) 25 mg IV NOW ONE Stop: 06/02/23 11:16 Last Admin: 06/02/23 12:24 Dose: 25 mg Documented By: BS Sodium Chloride (Normal Saline 0.9%) 1,000 mls @ 1,000 mls/hr IV BOLUS ONE Stop: 06/02/23 12:14 Last Infusion: 06/02/23 13:28 Dose: 0 mls/hr Documented By: Admin: 06/02/23 12:24 Dose: 1,000 mls/hr Documented By: HARSHIL Ketorolac Tromethamine (Ketorolac 30 Mg/Ml Vial) 15 mg IV NOW ONE Stop: 06/02/23 11:16 Last Admin: 06/02/23 12:24 Dose: 15 mg Documented By: BS Metoclopramide HCl (Metoclopramide 10 Mg/2 Ml Inj) 10 mg IV NOW ONE Stop: 06/02/23 11:16 Last Admin: 06/02/23 12:24 Dose: 10 mg Documented By: HARSHIL Vital Signs Vital signs: Vital Signs - 8 hr 06/02/23 10:58 Temperature 99.1 F Pulse Rate 96 H Respiratory Rate 18 Blood Pressure 136/87 Pulse Oximetry 93 Oxygen Delivery Method Room Air MDM - Headache <Urban Galaviz PA-C - Last Filed: 06/02/23 13:17> MDM Narrative Medical decision making narrative: 62-year-old male with past medical history hypertension, hyperlipidemia, hypothyroidism presents to the ED with 2 days of COVID related symptoms. Patient's symptoms are most consistent with COVID-19 infection. Will treat symptoms with IV fluids, Toradol, Tylenol, Reglan, Benadryl, IV fluids. Will reassess. Patient's symptoms significantly improved with medications. Discussed supportive care with Tylenol, ibuprofen, plenty of hydration, [id number] medications for symptom relief. ED return precautions were discussed with patient. Patient verbalized understanding. Medical records reviewed: Yes Discharge Plan Departure Patient Disposition: Home Clinical Impression: Headache Instructions: DI for Headache Activity Restrictions/Additional Instructions: You were evaluated in the ED today for a headache and all over aches and pains. Your symptoms are due to the COVID-19 infection. Your headache responded well to the medications. Please continue to stay well hydrated and you may take Tylenol, ibuprofen and other [id number] medications for your symptoms. Return to the ED if you have worsening symptoms, experience chest pain or s hortness of breath. Prescriptions: No Action naproxen sodium [Aleve] 220 mg capsule 440 mg PO DAILY PRN mupirocin 2 % ointment 1 applic topical TID Qty: 15 0RF Rx Instructions: antibiotic for skin infection testosterone 1 % (25 mg/2.5gram) gel in packet 1 packet topical DAILY amlodipine-benazepril 2.5-10 mg capsule 1 cap PO DAILY Qty: 30 2RF terbinafine HCl 250 mg tablet 250 mg PO DAILY 84 Days Qty: 84 0RF Rx Instructions: PLEASE REMEMBER TO GET REPEAT LIVER TEST DONE AFTER 6 WEEKS--LAB ORDER IS IN levothyroxine 175 mcg tablet 175 mcg PO DAILY Qty: 90 3RF Pneumovax-23 25 mcg/0.5 mL syringe 0.5 ml IM ONCE Qty: 0.5 0RF Rx Instructions: as a single dose rosuvastatin 40 mg tablet 40 mg PO DAILY Qty: 90 3RF omeprazole 20 mg capsule,delayed release(DR/EC) 20 mg PO DAILY Qty: 90 3RF (DME) [employer] Dreamstation CPAP Qty: 1 Dose Instruction: As directed Patient Comments: Pressure: 10-16 cmH2O DME: [facility] Rx Instructions: As directed Referrals: Mralon Esquivel ARNP [Primary Care Provider] - Stand Alone Forms: Patient Portal/API <Carleen Recinos DO - Last Filed: 06/03/23 08:55> Cosign ED Attending Chandaature Attestation: I was immediately available in the department for consultation. Documentation has been reviewed.
[2023-06-02] MEDS: diphenhydrAMINE 50 MG/ML VIAL 25 MG IV (12:24)
[2023-06-02] MEDS: METOCLOPRAMIDE 10 MG/2 ML INJ IV (12:24)
[2023-06-02] MEDS: KETOROLAC 30 MG/ML VIAL 15 MG IV (12:24)
[2023-06-02] MEDS: SODIUM CHLORIDE 0.9% 1,000 ML 1000 ML IV (12:24)
[2023-06-02] MEDS: ACETAMINOPHEN 325 MG TABLET 975 MG PO (12:25)
[2023-06-02 13:16] VITALS: BP 137/72; PULSE 84; TEMP 36.6; O2SAT 95
== END 2023-06-02 13:35 | disposition home or self-care (01) ==
PROVIDERS: Emergency Provider Student in an Organized Health Care Education/Training Program; PCP Registered Nurse Diabetes Educator
DX: U07.1 COVID-19 (principal); R51.9 Headache, unspecified
CPT/HCPCS: 36415; 93005; 96361; 96374; 96375; 99284; J1200; J1885; J2765

== ENCOUNTER → 2023-09-16 10:34 | Outpatient (CLI) | payer MEDICARE, MEDICAID, SELFPAY ==
[2023-09-16 11:54] LABS: Hemoglobin A1C% w Est Avg Glu 6.9 % (4.0-6.0)
[2023-09-16 12:05] LABS: Alanine Aminotransferase 32 IU/L (<50); Albumin 4.3 g/dL (3.5-5.0); Albumin Globulin Ratio 1.3 (1.0-2.8); Alkaline Phosphatase 96 U/L (38-126); Aspartate Aminotransferase 35 IU/L (17-59); BUN Creatinine Ratio 16.3 (6-22); Bilirubin Total 0.6 mg/dL (0.2-1.3); Blood Urea Nitrogen 16 mg/dL (9-20); Calcium 9.4 mg/dL (8.4-10.2); Carbon Dioxide 25 mmol/L (22-32); Chloride 103 mmol/L (98-107); Estimated Glomerular Filt Rate > 60 mL/min (>60); Globulin 3.2 g/dL (1.7-4.1); Glucose 175 mg/dL (80-110); HEMOLYSIS 15 (0-50); Sodium 138 mmol/L (137-145); Total Protein 7.5 g/dL (6.3-8.2)
== END ==
PROVIDERS: PCP Registered Nurse Diabetes Educator; Referring Provider Registered Nurse Diabetes Educator; Visit Provider Registered Nurse Diabetes Educator
DX: Z51.81 Encounter for therapeutic drug level monitoring (principal); E11.9 Type 2 diabetes mellitus without complications
CPT/HCPCS: 36415; 80053; 83036

== ENCOUNTER → 2024-02-01 09:06 | Outpatient (CLI) | payer MEDICARE, MEDICAID, SELFPAY ==
[2024-02-01 10:06] LABS: Hematocrit 43.2 % (41-53); Hemoglobin 15.1 g/dL (13.5-17.5); Mean Corpuscular HGB Conc 34.9 % (30-36); Mean Corpuscular Hemoglobin 30.4 PG (26-34); Platelet Count 212 X10^3/uL (150-400); Red Blood Cell Count 4.96 X10^6/uL (4.5-5.9); Red Cell Distribution Width 13.2 % (11.6-14.8); White Blood Cell Count 8.1 X10^3/uL (4.5-11.0)
[2024-02-01 10:13] LABS: Hemoglobin A1C% w Est Avg Glu 6.7 % (4.0-6.0)
[2024-02-01 10:26] LABS: Alanine Aminotransferase 23 IU/L (<50); Albumin 4.4 g/dL (3.5-5.0); Albumin Globulin Ratio 1.6 (1.0-2.8); Alkaline Phosphatase 87 U/L (38-126); Aspartate Aminotransferase 24 IU/L (17-59); BUN Creatinine Ratio 14.9 (6-22); Bilirubin Total 0.6 mg/dL (0.2-1.3); Blood Urea Nitrogen 13 mg/dL (9-20); Calcium 9.2 mg/dL (8.4-10.2); Carbon Dioxide 29 mmol/L (22-32); Chloride 105 mmol/L (98-107); Cholesterol 167 mg/dL (140-199); Estimated Glomerular Filt Rate > 60 mL/min (>60); Globulin 2.8 g/dL (1.7-4.1); Glucose 157 mg/dL (80-110); HDL Cholesterol 40 mg/dL (40-60); HEMOLYSIS < 15 (0-50); LDL Cholesterol Calculated 89 mg/dL (<100); Potassium 4.8 mmol/L (3.4-5.1); Sodium 139 mmol/L (137-145); Total Protein 7.2 g/dL (6.3-8.2); Triglycerides 188 mg/dL (35-150)
[2024-02-01 10:56] LABS: TSH w/ Reflex to FT4 9.64 uIU/mL (0.47-4.68)
[2024-02-01 11:22] LABS: Free T4, Direct Thyroxine 0.79 ng/dL (0.78-2.19)
[2024-02-01 11:57] LABS: Creatinine Urine Random 166.8 mg/dL
[2024-02-01 12:01] LABS: Microalbumi Creatinin Ratio Ur 11.9 ug/mg CR (<30)
== END ==
PROVIDERS: PCP Registered Nurse Diabetes Educator; Referring Provider Registered Nurse Diabetes Educator; Visit Provider Registered Nurse Diabetes Educator
DX: Z51.81 Encounter for therapeutic drug level monitoring (principal); E11.9 Type 2 diabetes mellitus without complications; I10 Essential (primary) hypertension; E78.2 Mixed hyperlipidemia; E03.9 Hypothyroidism, unspecified
CPT/HCPCS: 36415; 80053; 80061; 82043; 82570; 83036; 84439; 84443; 85027

== ENCOUNTER → 2024-02-15 07:09 | Outpatient (CLI) | payer MEDICARE, MEDICAID, SELFPAY ==
[2024-02-15 08:02] LABS: Hematocrit 42.6 % (41-53); Hemoglobin 14.4 g/dL (13.5-17.5)
[2024-02-15 08:21] LABS: Cholesterol 142 mg/dL (140-199); HDL Cholesterol 39 mg/dL (40-60); LDL Cholesterol Calculated 72 mg/dL (<100); Triglycerides 156 mg/dL (35-150)
[2024-02-15 08:47] LABS: Prostate Specific Antigen 6.12 ng/mL (0.10-4.00)
== END ==
PROVIDERS: PCP Registered Nurse Diabetes Educator; Referring Provider Physician Assistant Medical; Visit Provider Physician Assistant Medical
DX: E29.1 Testicular hypofunction (principal)
CPT/HCPCS: 36415; 80061; 84153; 84402; 84403; 85014; 85018

== ENCOUNTER → 2024-03-29 07:31 | Outpatient (CLI) | payer MEDICARE, MEDICAID, SELFPAY ==
[2024-03-29 09:47] LABS: TSH w/ Reflex to FT4 0.02 uIU/mL (0.47-4.68)
[2024-03-29 10:20] LABS: Free T4, Direct Thyroxine 1.48 ng/dL (0.78-2.19)
== END ==
PROVIDERS: PCP Registered Nurse Diabetes Educator; Referring Provider Physician Assistant Medical; Visit Provider Physician Assistant Medical
DX: R97.20 Elevated prostate specific antigen [PSA] (principal); E03.9 Hypothyroidism, unspecified
CPT/HCPCS: 36415; 84153; 84439; 84443

== ENCOUNTER → 2024-05-02 07:02 | Outpatient (CLI) | payer MEDICARE, MEDICAID, SELFPAY ==
[2024-05-02 08:39] LABS: Hemoglobin A1C% w Est Avg Glu 5.9 % (4.0-6.0)
[2024-05-02 09:24] LABS: TSH w/ Reflex to FT4 0.05 uIU/mL (0.47-4.68)
[2024-05-02 14:41] LABS: Free T4, Direct Thyroxine 1.34 ng/dL (0.78-2.19)
== END ==
PROVIDERS: PCP Registered Nurse Diabetes Educator; Referring Provider Registered Nurse Diabetes Educator; Visit Provider Registered Nurse Diabetes Educator
DX: E11.9 Type 2 diabetes mellitus without complications (principal); E03.9 Hypothyroidism, unspecified
CPT/HCPCS: 36415; 83036; 84439; 84443

== ENCOUNTER → 2024-10-01 09:32 | Outpatient (CLI) | payer MEDICARE, MEDICAID, SELFPAY ==
[2024-10-01 11:38] LABS: Hemoglobin A1C% w Est Avg Glu 5.2 % (4.0-6.0)
[2024-10-01 12:15] LABS: TSH w/ Reflex to FT4 1.03 uIU/mL (0.47-4.68)
== END ==
PROVIDERS: PCP Registered Nurse Diabetes Educator; Referring Provider Registered Nurse Diabetes Educator; Visit Provider Registered Nurse Diabetes Educator
DX: E11.9 Type 2 diabetes mellitus without complications (principal); E03.9 Hypothyroidism, unspecified
CPT/HCPCS: 36415; 83036; 84443

== ENCOUNTER → 2025-01-04 07:34 | Outpatient (CLI) | payer MEDICARE, MEDICAID, SELFPAY ==
[2025-01-04 09:12] LABS: Prostate Specific Antigen 10.6 ng/mL (0.10-4.00)
== END ==
PROVIDERS: PCP Registered Nurse Diabetes Educator; Referring Provider Physician Assistant Medical; Visit Provider Physician Assistant Medical
DX: R97.20 Elevated prostate specific antigen [PSA] (principal); Z12.5 Encounter for screening for malignant neoplasm of prostate
CPT/HCPCS: 36415; 84153

== ENCOUNTER 2025-03-14 12:43 | Emergency (ER) | payer MEDICARE, MEDICAID, SELFPAY ==
[2025-03-14] VITALS (55 sets, daily range): BP systolic 120–175; BP diastolic 57–89; PULSE 64–114; RESP 10–28; TEMP 37.4; O2SAT 94–100; BMI 34.0
--- NOTE | 2025-03-14 12:49 | DI.CT.S_ITS ---
PROCEDURE: CT ANGIO CHEST ABDOMEN PELVIS INDICATIONS: dissection TECHNIQUE: Precontrast 5 mm thick sections acquired from the lung apices to the iliac crests. After the administration of intravenous contrast, 2.5 mm thick sections again acquired from the lung apices to the iliac crests. Maximum intensity projection (MIP) oblique sagittal and coronal reformats were then acquired. For radiation dose reduction, the following was used: automated exposure control. COMPARISON: [facility], CT, CT CHEST ABD PEL W CON, 05/31/2023, 22:01. FINDINGS: Image quality: Diagnostic. AORTA: No aortic aneurysm. No acute aortic syndrome. CHEST: Lower Neck: No enlarged lymph nodes. Thyroid: No thyroid nodules which require sonographic follow up, per consensus guidelines. Axillae: No enlarged lymph nodes. Chest Wall: Unremarkable. Lungs and Pleura: No pneumothorax or pleural effusions. No new suspicious or enlarging pulmonary nodules. No septal thickening or nodularity. No acute airspace opacities. Visualized airways appear clear. Heart: Heart size is normal. No pericardial effusion. Coronary atherosclerotic vascular calcifications are noted. Thoracic Vessels: Pulmonary arteries demonstrate normal size. Mediastinum and Sylvia: No enlarged lymph nodes. Esophagus: No wall thickening. No hiatal hernia. ABDOMEN: Liver: No solid mass. Gallbladder: No radiopaque gallstones or wall thickening. Biliary ducts: No biliary dilation. Pancreas: No ductal dilation. Spleen: Size is within normal limits. Adrenal Glands: Stable appearance of left adrenal nodule compatible with an adrenal adenoma. No right adrenal nodule. Kidneys and Ureters: No hydronephrosis. No solid mass. No complex renal cystic lesion which requires follow up. Bilateral ureters are normal in course and caliber. Stomach and Bowel: Normal colonic caliber, without significant wall thickening. No evidence for small bowel obstruction or associated inflammatory changes. Normal appendix. Peritoneum: No abnormal intraperitoneal fluid. No free air. Ventral Wall: There is a fat-containing umbilical hernia without acute inflammation. Abdominal Nodes: No retroperitoneal or mesenteric adenopathy by size criteria. Vessels: Scattered atherosclerotic calcifications of the abdominal aorta and iliac vessels without aneurysmal dilatation. The inferior vena cava appears patent. PELVIS: Pelvic Organs: Unremarkable. Bladder: Unremarkable. Pelvic Nodes: No enlarged lymph nodes. Miscellaneous: No inguinal hernias are seen. Bones: No acute vertebral body compression fractures. Multilevel spondylitic changes throughout the imaged spine. No suspicious osseous lesions. Redemonstration of bilateral L5 pars defects with minimal anterolisthesis of L5 on S1. IMPRESSION: CT chest, abdomen, and pelvis without acute abnormalities. Specifically, no evidence for aneurysmal dilatation of the thoracic or abdominal aorta. No evidence for acute aortic syndrome. Stable appearance of left adrenal adenoma. Other chronic/non-acute findings as above. Dictated by: Dao Peace M.D. on 03/14/2025 at 13:40 Approved by: Dao Peace M.D. on 03/14/2025 at 13:45
--- NOTE | 2025-03-14 12:52 | EKG_ITS ---
[address] [address] Test Date: 2025-03-14 Pat Name: [facility] Department: Room: Gender: Male Transformation Consultant: IVAN : 1960 Requested By: Order Number: [id number] Reading MD: Andrés Carrington Measurements Intervals [place] Rate: 87 P: 46 ID: [id number] QRS: 19 QRSD: 76 T: 59 QT: 350 QTc: 421 Interpretive Statements Sinus rhythm with premature atrial complexes Electronically Signed On 03-18-2025 16:22:04 PDT by Andrés Carrington
[2025-03-14 13:09] LABS: Add Manual Diff / Slide Review NO; Basophils Absolute Auto 100 /uL (0-100); Basophils Percent Auto 1.5 % (0-2); Eosinophils Absolute Auto 100 /uL (0-450); Eosinophils Percent Auto 0.8 % (2-4); Hemoglobin 15.3 g/dL (13.5-17.5); Lymphocytes Absolute Auto 1900 /uL (1100-4500); Lymphocytes Percent Auto 18.2 % (25-40); Mean Corpuscular HGB Conc 35.6 % (30-36); Mean Corpuscular Hemoglobin 30.1 PG (26-34); Mean Corpuscular Volume 84.5 fL (80-100); Monocytes Absolute Auto 700 /uL (0-900); Monocytes Percent Auto 7.1 % (3-14); Neutrophils Absolute Auto 7400 /uL (1500-7000); Neutrophils Percent Auto 72.4 % (50-75); Platelet Count 237 X10^3/uL (150-400); Red Blood Cell Count 5.09 X10^6/uL (4.5-5.9); Red Cell Distribution Width 13.1 % (11.6-14.8); White Blood Cell Count 10.3 X10^3/uL (4.5-11.0)
[2025-03-14 13:21] LABS: Alanine Aminotransferase 18 IU/L (<50); Albumin 4.4 g/dL (3.5-5.0); Albumin Globulin Ratio 1.6 (1.0-2.8); Alkaline Phosphatase 86 U/L (38-126); Aspartate Aminotransferase 22 IU/L (17-59); BUN Creatinine Ratio 12.4 (6-22); Bilirubin Total 1.3 mg/dL (0.2-1.3); Blood Urea Nitrogen 11 mg/dL (9-20); Calcium 9.1 mg/dL (8.4-10.2); Carbon Dioxide 25 mmol/L (22-32); Chloride 105 mmol/L (98-107); Estimated Glomerular Filt Rate > 60 mL/min (>60); Globulin 2.8 g/dL (1.7-4.1); Glucose 110 mg/dL (70-99); HEMOLYSIS < 15 (0-50); Lactate (Lactic Acid) 1.1 mmol/L (0.7-2.1); Lipase 76 U/L (23-300); Magnesium 1.9 mg/dL (1.6-2.3); Potassium 3.7 mmol/L (3.4-5.1); Sodium 137 mmol/L (137-145); Total Protein 7.2 g/dL (6.3-8.2)
[2025-03-14 13:32] LABS: NT-proBNP (BNP-Adult 18+) 159 pg/mL (<125); Troponin I < 0.012 ng/mL (0.01-0.034)
--- NOTE | 2025-03-14 13:33 | PC.NURSE ---
Pt states that his cp & mid back pain have resolved after first dose of SL nitro. Pt states that he is just feeling out of it and disconnected. Pt states that he has a tick when he gets nervous and makes him jump.
[2025-03-14] MEDS: ASPIRIN 81 MG CHEW TAB 324 MG PO (13:36)
--- NOTE | 2025-03-14 15:24 | ED.GENADULT ---
HPI - General Adult General Chief complaint: Dizziness Stated complaint: dizzy/back pain/cough Time Seen by Provider: 03/14/25 12:43 Source: patient Mode of arrival: Ambulatory History of Present Illness HPI narrative: 64-year-old gentleman with a history of hypertension, hyperlipidemia, reflux, hypothyroidism presents today acute onset chest and back pain 12 hours ago. Describes it as severe back pain and indicates it is between his shoulder blades. He is in enough pain that he is slightly dyspneic, mildly diaphoretic and having trouble expressing a complete thought secondary to pain. Also having some myoclonic twitching that he states is close to his baseline and not a usual. he describes being dizzy to the point of near syncope that seems to be worse after dramatic coughing episodes. He does not describe recent upper respiratory infections or baseline cough. In the last 12 hours he has been having hot and cold episodes. No nausea vomiting or diarrhea. No abdominal pain Related Data Home Medications Medication Instructions Recorded Confirmed [employer] Dreamstation CPAP #1 ea 04/06/19 01/02/25 naproxen sodium 220 mg capsule 440 mg PO DAILY PRN 04/04/21 01/02/25 (Aleve) testosterone 1 % (25 mg/2.5 gram) 1 packet topical DAILY 05/26/23 01/02/25 transdermal gel packet Previous Rx's Medication Instructions Recorded mupirocin 2 % topical ointment 1 applic topical TID #15 grams 06/05/22 amlodipine 2.5 mg-benazepril 10 mg 1 cap PO DAILY #90 caps 10/03/24 capsule levothyroxine 150 mcg tablet 150 mcg PO DAILY #90 tabs 10/03/24 rosuvastatin 40 mg tablet 40 mg PO DAILY #90 tabs 10/03/24 semaglutide 2 mg/dose (8 mg/3 mL) 2 mg (0.75 mL) SUBCUT QWEEK #9 mL 10/03/24 subcutaneous pen injector (Ozempic) omeprazole 20 mg capsule,delayed 20 mg PO DAILY #90 caps 01/05/25 release diazepam 5 mg tablet 5 mg PO BID PRN anxiety #14 tabs 03/14/25 trazodone 50 mg tablet 50 - 100 mg (1 - 2 x 50 mg) PO 03/14/25 BEDTIME PRN insomnia #45 tabs Allergies Allergy/AdvReac Type Severity Reaction Status Date / Time adhesive Allergy Verified 01/02/25 08:32 Review of Systems Review of Systems Narrative: Pertinent positive and negative findings as per HPI Patient History Medical History Family history of esophageal cancer DM type 2 with diabetic dyslipidemia Essential hypertension Chronic low back pain without sciatica Diabetes mellitus type 2, diet-controlled Hamstring tightness of right lower extremity Prediabetes (06/2020) Hypertriglyceridemia Elevated alkaline phosphatase level Elevated glucose Skin tag Snoring Insomnia Obstructive sleep apnea of adult GERD (gastroesophageal reflux disease) Hx of brain damage (1959) Chronic back pain (1975) Generalized headaches Anxiety Depression Sleep apnea Eczema Colon polyps (2015) Vertigo (2016) Hyperthyroidism Hyperlipemia Surgical History History of surgery on arm (2010) Status post knee surgery (2011) Status post knee surgery (2005) Family History Brother Age: 68 Heart disease Hypertension Hyperlipidemia Father Age: 93 Cancer Hyperlipidemia Brother Cancer Social History Smoking Status: Former smoker Tobacco: How many years used: 29 second hand exposure: Yes (once in a while, but not much.) alcohol intake: former substance use type: does not use Smoking Status: Former smoker alcohol intake frequency: holidays/special occasions only Exam Initial Vital Signs Initial Vital Signs: Vital Signs Temperature 99.4 F 03/14/25 12:45 Pulse Rate 114 H 03/14/25 12:45 Respiratory Rate 20 03/14/25 12:45 Blood Pressure 169/75 H 03/14/25 12:45 Pulse Oximetry 98 03/14/25 12:45 Oxygen Delivery Method Room Air 03/14/25 12:45 General: appears to be in acute distress, having trouble telling his story because his pain is making it difficult to talk, mildly diaphoretic HEENT: Moist mucous membranes, normal sclera with reactive pupils, Neck: No JVD, Respiratory: Lungs are clear to auscultation, no wheezing no rales no rhonchi. Full and symmetrical air movement Cardiac: Regular rate and rhythm no murmurs no bruits, blood pressures bilaterally are equal and elevated at 160 9/75 chest: No obvious point tenderness, bruising, subcutaneous air. He is not point tender along the thoracic spine midline Abdomen: Soft, nontender, no rebound or guarding, no flank pain Skin: diaphoretic, pale, no rashes or appreciated Neurologic: Grossly neurologically intact with no obvious asymmetries or abnormalities, he does have some myoclonic jerking that he states is his baseline, is having mild difficulty in getting words out unclear if this is secondary to pain or baseline Extremities: No trauma, well perfused Psych: Cooperative, appropriate insight and affect Course Orders Ordered: ED Orders 03/14/25 12:49 CT angio chest abdomen pelvis Stat 03/14/25 12:50 Complete Blood Count AUTO DIFF Stat Comprehensive Metabolic Panel Stat Lactate (Lactic Acid) Stat Lipase Stat Magnesium Stat NT-proBNP (BNP-Adult 18+) Stat Troponin I Stat 03/14/25 15:26 Trop I [Troponin I] Stat Discontinued Medications Aspirin (Aspirin 81 Mg Chew Tab) 324 mg PO NOW ONE Stop: 03/14/25 12:50 Last Admin: 03/14/25 13:36 Dose: 324 mg Documented By: TRISTAN Nitroglycerin (Nitroglycerin 0.4 Mg Sl Tab) 0.4 mg SL [id number] PRN PRN Reason: Chest Pain Vital Signs Vital signs: Vital Signs - 8 hr 03/14/25 12:45 03/14/25 12:47 03/14/25 12:47 Temperature 99.4 F Pulse Rate 114 H 112 H Respiratory Rate 20 21 Blood Pressure 169/75 H 169/75 H Pulse Oximetry 98 Oxygen Delivery Method Room Air 03/14/25 12:48 03/14/25 12:48 03/14/25 13:01 Temperature Pulse Rate 96 H 101 H Respiratory Rate 17 Blood Pressure 166/77 H Pulse Oximetry 98 94 Oxygen Delivery Method 03/14/25 13:14 03/14/25 13:14 03/14/25 13:17 Temperature Pulse Rate 106 H 105 H Respiratory Rate 23 23 Blood Pressure 162/81 H Pulse Oximetry 97 98 Oxygen Delivery Method 03/14/25 13:17 03/14/25 13:20 03/14/25 13:20 Temperature Pulse Rate 102 H Respiratory Rate 28 H Blood Pressure 163/72 H 156/70 H Pulse Oximetry 95 Oxygen Delivery Method 03/14/25 13:25 03/14/25 13:25 03/14/25 13:30 Temperature Pulse Rate 107 H Respiratory Rate 24 Blood Pressure 157/86 H 144/68 H Pulse Oximetry 97 Oxygen Delivery Method 03/14/25 13:30 03/14/25 13:35 03/14/25 13:35 Temperature Pulse Rate 96 H 95 H Respiratory Rate 17 20 Blood Pressure 148/70 H Pulse Oximetry 97 97 Oxygen Delivery Method 03/14/25 13:40 03/14/25 13:40 03/14/25 13:45 Temperature Pulse Rate 102 H Respiratory Rate 21 Blood Pressure 173/81 H 174/79 H Pulse Oximetry 97 Oxygen Delivery Method 03/14/25 13:45 03/14/25 13:50 03/14/25 13:50 Temperature Pulse Rate 99 H 107 H Respiratory Rate 17 24 Blood Pressure 170/76 H Pulse Oximetry 99 99 Oxygen Delivery Method 03/14/25 13:55 03/14/25 13:55 03/14/25 14:00 Temperature Pulse Rate 82 71 Respiratory Rate 20 18 Blood Pressure 145/69 H Pulse Oximetry 98 96 Oxygen Delivery Method 03/14/25 14:00 03/14/25 14:05 03/14/25 14:05 Temperature Pulse Rate 86 Respiratory Rate 24 Blood Pressure 171/76 H 175/89 H Pulse Oximetry 97 Oxygen Delivery Method 03/14/25 14:10 03/14/25 14:10 03/14/25 14:14 Temperature Pulse Rate 73 80 Respiratory Rate 16 16 Blood Pressure 173/80 H 173/80 H Pulse Oximetry 96 99 Oxygen Delivery Method Room Air 03/14/25 14:25 03/14/25 14:25 03/14/25 14:30 Temperature Pulse Rate 77 72 Respiratory Rate 14 13 Blood Pressure 152/81 H Pulse Oximetry 98 95 Oxygen Delivery Method 03/14/25 14:30 03/14/25 14:35 03/14/25 14:35 Temperature Pulse Rate 69 Respiratory Rate 20 Blood Pressure 146/70 H 141/65 H Pulse Oximetry 94 Oxygen Delivery Method 03/14/25 14:40 03/14/25 14:40 03/14/25 14:45 Temperature Pulse Rate 74 71 Respiratory Rate 24 25 H Blood Pressure 143/68 H Pulse Oximetry 96 94 Oxygen Delivery Method 03/14/25 14:45 03/14/25 14:50 03/14/25 14:50 Temperature Pulse Rate 70 Respiratory Rate 22 Blood Pressure 138/65 139/68 Pulse Oximetry 95 Oxygen Delivery Method 03/14/25 14:55 03/14/25 14:55 03/14/25 15:00 Temperature Pulse Rate 64 73 Respiratory Rate 19 19 Blood Pressure 125/64 Pulse Oximetry 95 95 Oxygen Delivery Method 03/14/25 15:00 03/14/25 15:05 03/14/25 15:05 Temperature Pulse Rate 72 Respiratory Rate 20 Blood Pressure 136/67 138/71 Pulse Oximetry 96 Oxygen Delivery Method 03/14/25 15:10 03/14/25 15:10 03/14/25 15:15 Temperature Pulse Rate 72 73 Respiratory Rate 18 12 Blood Pressure 139/74 Pulse Oximetry 95 97 Oxygen Delivery Method 03/14/25 15:15 03/14/25 15:20 03/14/25 15:20 Temperature Pulse Rate 69 Respiratory Rate 17 Blood Pressure 139/77 125/59 L Pulse Oximetry 95 Oxygen Delivery Method 03/14/25 15:25 03/14/25 15:25 03/14/25 15:30 Temperature Pulse Rate 66 66 Respiratory Rate 19 Blood Pressure 125/60 Pulse Oximetry 96 96 Oxygen Delivery Method 03/14/25 15:30 03/14/25 15:35 03/14/25 15:35 Temperature Pulse Rate 65 Respiratory Rate 22 Blood Pressure 121/58 L 120/57 L Pulse Oximetry 96 Oxygen Delivery Method 03/14/25 15:40 03/14/25 15:40 03/14/25 15:45 Temperature Pulse Rate 75 71 Respiratory Rate Blood Pressure 125/59 L Pulse Oximetry 98 98 Oxygen Delivery Method 03/14/25 15:45 03/14/25 15:50 03/14/25 15:50 Temperature Pulse Rate 69 Respiratory Rate 18 Blood Pressure 127/58 L 122/59 L Pulse Oximetry 97 Oxygen Delivery Method 03/14/25 15:55 03/14/25 15:55 03/14/25 16:00 Temperature Pulse Rate 69 69 Respiratory Rate 12 18 Blood Pressure 130/70 Pulse Oximetry 100 98 Oxygen Delivery Method 03/14/25 16:00 03/14/25 16:05 03/14/25 16:05 Temperature Pulse Rate 67 Respiratory Rate 16 Blood Pressure 131/66 121/60 Pulse Oximetry 98 Oxygen Delivery Method 03/14/25 16:10 03/14/25 16:10 03/14/25 16:15 Temperature Pulse Rate 70 72 Respiratory Rate 18 20 Blood Pressure 130/69 Pulse Oximetry 100 100 Oxygen Delivery Method 03/14/25 16:15 03/14/25 16:20 03/14/25 16:20 Temperature Pulse Rate 71 Respiratory Rate 18 Blood Pressure 149/69 H 138/68 Pulse Oximetry 96 Oxygen Delivery Method 03/14/25 16:25 03/14/25 16:25 03/14/25 16:30 Temperature Pulse Rate 73 68 Respiratory Rate 17 Blood Pressure 138/69 Pulse Oximetry 98 98 Oxygen Delivery Method 03/14/25 16:30 03/14/25 16:35 03/14/25 16:35 Temperature Pulse Rate 73 Respiratory Rate 13 Blood Pressure 123/61 130/67 Pulse Oximetry 99 Oxygen Delivery Method 03/14/25 16:40 03/14/25 16:40 03/14/25 16:45 Temperature Pulse Rate 67 66 Respiratory Rate 10 L Blood Pressure 141/72 H Pulse Oximetry 98 97 Oxygen Delivery Method 03/14/25 16:45 03/14/25 16:50 03/14/25 16:50 Temperature Pulse Rate 69 Respiratory Rate 22 Blood Pressure 129/63 130/63 Pulse Oximetry 99 Oxygen Delivery Method 03/14/25 16:55 03/14/25 16:55 03/14/25 17:00 Temperature Pulse Rate 67 69 Respiratory Rate 23 24 Blood Pressure 130/59 L Pulse Oximetry 97 97 Oxygen Delivery Method 03/14/25 17:00 03/14/25 17:05 03/14/25 17:05 Temperature Pulse Rate 70 Respiratory Rate 23 Blood Pressure 126/62 133/63 Pulse Oximetry 99 Oxygen Delivery Method 03/14/25 17:10 03/14/25 17:10 03/14/25 17:15 Temperature Pulse Rate 69 68 Respiratory Rate 24 23 Blood Pressure 127/61 Pulse Oximetry 97 98 Oxygen Delivery Method 03/14/25 17:15 03/14/25 17:20 03/14/25 17:20 Temperature Pulse Rate 66 Respiratory Rate 22 Blood Pressure 125/60 125/58 L Pulse Oximetry 97 Oxygen Delivery Method 03/14/25 17:31 Temperature Pulse Rate 72 Respiratory Rate 16 Blood Pressure 127/67 Pulse Oximetry 96 Oxygen Delivery Method Room Air Medical Decision Making Lab Data 03/14/25 12:50 03/14/25 12:50 Labs: Lab Results 03/14/25 03/14/25 Range/Units 12:50 15:26 WBC 10.3 (4.5-11.0) X10^3/uL RBC 5.09 (4.5-5.9) X10^6/uL Hgb 15.3 (13.5-17.5) g/dL Hct 43.0 (41-53) % MCV 84.5 (80-100) fL MCH 30.1 (26-34) PG MCHC 35.6 (30-36) % RDW 13.1 (11.6-14.8) % Plt Count 237 (150-400) X10^3/uL Neut % (Auto) 72.4 (50-75) % Lymph % (Auto) 18.2 L (25-40) % Brooks % (Auto) 7.1 (3-14) % Eos % (Auto) 0.8 L (2-4) % Baso % (Auto) 1.5 (0-2) % Neut # (Auto) 7400 H (8645-3762) /uL Lymph # (Auto) 1900 (9192-7962) /uL Brooks # (Auto) 700 (0-900) /uL Eos # (Auto) 100 (0-450) /uL Baso # (Auto) 100 (0-100) /uL Sodium 137 (137-145) mmol/L Potassium 3.7 (3.4-5.1) mmol/L Chloride 105 (98-107) mmol/L Carbon Dioxide 25 (22-32) mmol/L BUN 11 (9-20) mg/dL Creatinine 0.89 (0.66-1.25) mg/dL Estimated GFR > 60 (>60) mL/min BUN/Creatinine Ratio 12.4 (6-22) Glucose 110 H (70-99) mg/dL Lactate 1.1 (0.7-2.1) mmol/L Calcium 9.1 (8.4-10.2) mg/dL Magnesium 1.9 (1.6-2.3) mg/dL Total Bilirubin 1.3 (0.2-1.3) mg/dL AST 22 (17-59) IU/L ALT 18 (<50) IU/L Alkaline Phosphatase 86 (38-126) U/L Troponin I < 0.012 < 0.012 (0.01-0.034) ng/mL NT-Pro-B Natriuret Pep 159 H (<125) pg/mL Total Protein 7.2 (6.3-8.2) g/dL Albumin 4.4 (3.5-5.0) g/dL Globulin 2.8 (1.7-4.1) g/dL Albumin/Globulin Ratio 1.6 (1.0-2.8) Lipase 76 (23-300) U/L Imaging Data CT scan - abdomen/pelvis: Radiologist's Impression: PROCEDURE: CT ANGIO CHEST ABDOMEN PELVIS INDICATIONS: dissection TECHNIQUE: Precontrast 5 mm thick sections acquired from the lung apices to the iliac crests. After the administration of intravenous contrast, 2.5 mm thick sections again acquired from the lung apices to the iliac crests. Maximum intensity projection (MIP) oblique sagittal and coronal reformats were then acquired. For radiation dose reduction, the following was used: automated exposure control. COMPARISON: [facility], CT, CT CHEST ABD PEL W CON, 05/31/2023, 22:01. FINDINGS: Image quality: Diagnostic. AORTA: No aortic aneurysm. No acute aortic syndrome. CHEST: Lower Neck: No enlarged lymph nodes. Thyroid: No thyroid nodules which require sonographic follow up, per consensus guidelines. Axillae: No enlarged lymph nodes. Chest Wall: Unremarkable. Lungs and Pleura: No pneumothorax or pleural effusions. No new suspicious or enlarging pulmonary nodules. No septal thickening or nodularity. No acute airspace opacities. Visualized airways appear clear. Heart: Heart size is normal. No pericardial effusion. Coronary atherosclerotic vascular calcifications are noted. Thoracic Vessels: Pulmonary arteries demonstrate normal size. Mediastinum and Sylvia: No enlarged lymph nodes. Esophagus: No wall thickening. No hiatal hernia. ABDOMEN: Liver: No solid mass. Gallbladder: No radiopaque gallstones or wall thickening. Biliary ducts: No biliary dilation. Pancreas: No ductal dilation. Spleen: Size is within normal limits. Adrenal Glands: Stable appearance of left adrenal nodule compatible with an adrenal adenoma. No right adrenal nodule. Kidneys and Ureters: No hydronephrosis. No solid mass. No complex renal cystic lesion which requires follow up. Bilateral ureters are normal in course and caliber. Stomach and Bowel: Normal colonic caliber, without significant wall thickening. No evidence for small bowel obstruction or associated inflammatory changes. Normal appendix. Peritoneum: No abnormal intraperitoneal fluid. No free air. Ventral Wall: There is a fat-containing umbilical hernia without acute inflammation. Abdominal Nodes: No retroperitoneal or mesenteric adenopathy by size criteria. Vessels: Scattered atherosclerotic calcifications of the abdominal aorta and iliac vessels without aneurysmal dilatation. The inferior vena cava appears patent. PELVIS: Pelvic Organs: Unremarkable. Bladder: Unremarkable. Pelvic Nodes: No enlarged lymph nodes. Miscellaneous: No inguinal hernias are seen. Bones: No acute vertebral body compression fractures. Multilevel spondylitic changes throughout the imaged spine. No suspicious osseous lesions. Redemonstration of bilateral L5 pars defects with minimal anterolisthesis of L5 on S1. IMPRESSION: CT chest, abdomen, and pelvis without acute abnormalities. Specifically, no evidence for aneurysmal dilatation of the thoracic or abdominal aorta. No evidence for acute aortic syndrome. Stable appearance of left adrenal adenoma. Other chronic/non-acute findings as above. Dictated by: Dao Peace M.D. on 03/14/2025 at 13:40 MDM Narrative Medical decision making narrative: CC: severe chest and upper back pain acute onset 12 hours Complicating co-morbidities: hypertension, hypothyroidism hyperlipidemia Data collected from: patient Medical records reviewed: primary care notes from January 02 and October 03 are reviewed Differential considered: given his dyspnea, acute distress and severe mid scapular pain dissection is considered and he sent urgently the CT scan. STEMI /NSTEMI, pneumothorax, compression fracture, musculoskeletal pain, pleuritic pain, posterior ulcer, duodenal pain Exam documented above, pertinent findings include: pale, diaphoretic significant interscapular upper chest pain, abdomen is soft peripheral pulses were appropriate upper extremity blood pressures are symmetrical and elevated Lab Test results independently reviewed as above. Pertinent findings: CBC is unremarkable CMP is unremarkable no evidence of heart failure initial troponin, drawn 12 hours after onset of pain is undetectable lipase is normal Independently reviewed EKG: EKG shows sinus rhythm, PACs appreciated, no significant ischemic changes Imaging studies independently reviewed: CTA of the chest abdomen and pelvis is reassuring. No abdominal abnormalities, pneumothorax, other mediastinal pathology, compression fractures or alternate pathology to explain is acute pain Treatments: Aspirin, nitroglycerin. The nitroglycerin did slightly relieve his pain Re-evaluations: In reviewing patient's negative workup including negative troponins x2, CTA and running labs reveals that the is having significant difficulty after the of his partner about 3 weeks ago. Perseverating thoughts, difficulty sleeping, episodes where he is simply unable to control his emotions which may have been what happened earlier today which explains the difficulty in speaking and the severe pain. He was supposed to speak with a counselor through his congregation today but canceled the appointment in lieu of coming to the emergency department he is open to a grief counselor. He is also open to suggestions on medications to help with overall grief. Discussion: 64-year-old gentleman without known significant cardiac history with hypertension reflux, hyperlipidemia and hypothyroidism who presents with severe mid scapular chest pain associated with dyspnea. Initial workup included CT angiogram that was unremarkable. Blood work shows no evidence of acute coronary syndrome with repeat troponins. EKG is reassuring showing no acute coronary syndrome. No evidence of acute heart failure. 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 We talked about some treatments for insomnia will recommend trazodone to help with sleep along with 2 mg of melatonin to try to Re equilibrate his circadian rhythms. I have given him 5 mg of diazepam to help with acute anxiety when it feel like it is building throughout the day or in the middle of the night. He does understand that this is a treatment for symptoms but does not deal with the underlying problem. He will continue his scheduled upcoming appointments with the grief counselor through his congregation. Discharge Plan Departure Patient Disposition: Home Clinical Impression: Atypical chest pain, Normal grief reaction, Panic attack Insomnia Qualifiers: Insomnia type: adjustment Qualified Code(s): F51.02 - Adjustment insomnia Instructions: DI for Insomnia Activity Restrictions/Additional Instructions: thank you for coming in today the initial concern was for life-threatening abnormalities such as aortic problems, acute heart attack, collapsed lungs or infection. Your workup was quite thorough and ruled all of those out. I suspect that you are grief surrounding the loss of your girlfriend as well as the chronic sleep deprivation is affecting you more deeply than you had initially anticipated. this is normal and there is help available it sounds like you do have a good resource of friends, now is absolutely the time to depend on those friends. Please contact the grief counselor with your congregation whom you are going to meet earlier today in terms of medication, I am going to recommend a sleeping pill called trazodone. When to suggest 50 mg to start with. It is safe to go to 100 mg. This medicine helps you fall asleep and stay asleep. It does not have addictive potential I am also going suggest that you by melatonin, [id number], the 2 mg size. You do not need more than that. Melatonin is not a sleeping pill. It helps your circadian rhythms get back in line with day and night patterns. I would recommend that you take 2 mg at night for the next month. This can be taken at the same time as the trazodone I am also going to give you a brief prescription for diazepam. This is an antianxiety medication. When you are feeling overwhelmed with your grief this can be somewhat helpful in covering up the intensity of your emotions so that you can deal with the more effectively. This does not fix anything but can help as a transition. You do need to see your primary care doctor, if your symptoms continue, sometimes being on an antidepressant for a period of time can be helpful overall as well. If you find that you are getting worse or develop any new symptoms, please feel free to return to the emergency department for further evaluation. Prescriptions: New trazodone 50 mg tablet 50 - 100 mg PO BEDTIME PRN (Reason: insomnia) Qty: 45 0RF diazepam 5 mg tablet 5 mg PO BID PRN (Reason: anxiety) Qty: 14 0RF No Action naproxen sodium [Aleve] 220 mg capsule 440 mg PO DAILY PRN mupirocin 2 % ointment 1 applic topical TID Qty: 15 0RF Rx Instructions: antibiotic for skin infection testosterone 1 % (25 mg/2.5gram) gel in packet 1 packet topical DAILY Hold Instructions: per Urology, d/t PSA elevation levothyroxine 150 mcg tablet 150 mcg PO DAILY Qty: 90 3RF Ozempic 2 mg/dose (8 mg/3 mL) pen injector 2 mg SUBCUT QWEEK Qty: 9 3RF amlodipine-benazepril 2.5-10 mg capsule 1 cap PO DAILY Qty: 90 1RF rosuvastatin 40 mg tablet 40 mg PO DAILY Qty: 90 1RF omeprazole 20 mg capsule,delayed release(DR/EC) 20 mg PO DAILY Qty: 90 3RF (DME) [employer] Dreamstation CPAP Qty: 1 Dose Instruction: As directed Patient Comments: Pressure: 10-16 cmH2O DME: [facility] Rx Instructions: As directed Referrals: Marlon Esquivel ARNP [Primary Care Provider] - Stand Alone Forms: Patient Portal/API/Survey
[2025-03-14 16:14] LABS: Troponin I < 0.012 ng/mL (0.01-0.034)
== END 2025-03-14 17:32 | disposition home or self-care (01) ==
PROVIDERS: Emergency Provider Emergency Medicine; PCP Registered Nurse Diabetes Educator
DX: R07.89 Other chest pain (principal); F51.02 Adjustment insomnia; F41.0 Panic disorder [episodic paroxysmal anxiety]; R45.89 Other symptoms and signs involving emotional state
CPT/HCPCS: 36415; 71275; 74174; 80053; 83605; 83690; 83735; 83880; 84484; 85025; 93005; 99283; 99284; Q9967

== ENCOUNTER → 2025-05-23 07:29 | Outpatient (CLI) | payer MEDICARE, MEDICAID, SELFPAY ==
[2025-05-23 08:36] LABS: Hematocrit 41.6 % (41-53); Hemoglobin 14.8 g/dL (13.5-17.5); Mean Corpuscular HGB Conc 35.6 % (30-36); Mean Corpuscular Hemoglobin 29.9 PG (26-34); Mean Corpuscular Volume 84.0 fL (80-100); Platelet Count 202 X10^3/uL (150-400)
[2025-05-23 08:45] LABS: Hemoglobin A1C% w Est Avg Glu 5.5 % (4.0-6.0)
[2025-05-23 08:58] LABS: Alanine Aminotransferase 18 IU/L (<50); Albumin 4.0 g/dL (3.5-5.0); Albumin Globulin Ratio 1.6 (1.0-2.8); Alkaline Phosphatase 93 U/L (38-126); Blood Urea Nitrogen 10 mg/dL (9-20); Calcium 9.0 mg/dL (8.4-10.2); Carbon Dioxide 27 mmol/L (22-32); Chloride 106 mmol/L (98-107); Cholesterol 114 mg/dL (140-199); Estimated Glomerular Filt Rate > 60 mL/min (>60); Globulin 2.5 g/dL (1.7-4.1); Glucose 97 mg/dL (70-99); HDL Cholesterol 37 mg/dL (40-60); HEMOLYSIS < 15 (0-50); Potassium 4.3 mmol/L (3.4-5.1); Sodium 139 mmol/L (137-145); Total Protein 6.5 g/dL (6.3-8.2); Triglycerides 88 mg/dL (35-150)
[2025-05-23 09:16] LABS: Microalbumi Creatinin Ratio Ur 8.0 ug/mg CR (<30)
[2025-05-23 09:28] LABS: TSH w/ Reflex to FT4 < 0.02 uIU/mL (0.47-4.68)
[2025-05-23 09:39] LABS: Prostate Specific Antigen 10.0 ng/mL (0.10-4.00)
[2025-05-23 11:43] LABS: Free T4, Direct Thyroxine 1.37 ng/dL (0.78-2.19)
== END ==
PROVIDERS: PCP Registered Nurse Diabetes Educator; Referring Provider Physician Assistant Medical; Visit Provider Physician Assistant Medical
DX: R97.20 Elevated prostate specific antigen [PSA] (principal); E11.69 Type 2 diabetes mellitus with other specified complication; Z12.5 Encounter for screening for malignant neoplasm of prostate; E03.9 Hypothyroidism, unspecified; E78.5 Hyperlipidemia, unspecified; E78.2 Mixed hyperlipidemia; I10 Essential (primary) hypertension
CPT/HCPCS: 36415; 80053; 80061; 82043; 82570; 83036; 84153; 84439; 84443; 85027

== ENCOUNTER → 2025-08-05 07:42 | Outpatient (CLI) | payer MEDICARE, MEDICAID, SELFPAY ==
[2025-08-05 10:26] LABS: Prostate Specific Antigen 9.75 ng/mL (0.10-4.00); TSH w/ Reflex to FT4 0.14 uIU/mL (0.47-4.68)
[2025-08-05 11:09] LABS: Free T4, Direct Thyroxine 1.39 ng/dL (0.78-2.19)
== END ==
LOC: LAB 07:45
PROVIDERS: PCP Registered Nurse Diabetes Educator; Referring Provider Registered Nurse Diabetes Educator; Visit Provider Physician Assistant Medical
DX: E03.9 Hypothyroidism, unspecified (principal); R97.20 Elevated prostate specific antigen [PSA]
CPT/HCPCS: 36415; 84153; 84439; 84443

== ENCOUNTER → 2025-09-21 08:02 | Outpatient (CLI) | payer MEDICARE, MEDICAID, SELFPAY ==
--- NOTE | 2025-09-21 08:04 | DI.MRI.S_ITS ---
PROCEDURE: MR HEAD/BRAIN WO CON INDICATIONS: eval drooling. Reports remote history brain damage TECHNIQUE: Non-contrast axial T1 spin echo, axial T2 fast spin echo, sagittal and axial FLAIR, coronal T2 fast spin echo, axial gradient echo, axial diffusion and ADC through the brain. COMPARISON: None. FINDINGS: Image quality: Excellent. CSF spaces: Ventricles appear symmetric in size and shape. Basal cisterns are patent. No extra-axial fluid collections. Brain: No intracranial bleeds or mass effects. There is cerebral volume loss for age. There are periventricular and deep white matter chronic small vessel ischemic changes. Brainstem appears normal. Diffusion-weighted images show no acute infarct. No chronic ischemic insults. Normal intravascular flow voids are present. Skull and face: Calvarial bone marrow is normal in signal. Orbits are normal. Sinuses: Sinuses and mastoids are clear. IMPRESSION: 1. No acute process. 2. Mild volume loss and small vessel disease. Dictated by: Fatou Sharma M.D. on 09/21/2025 at 13:21 Approved by: Fatou Sharma M.D. on 09/21/2025 at 13:22
== END ==
LOC: MRI 08:03
PROVIDERS: PCP Registered Nurse Diabetes Educator; Referring Provider Registered Nurse Diabetes Educator; Visit Provider Registered Nurse Diabetes Educator
DX: G25.0 Essential tremor (principal); K11.7 Disturbances of salivary secretion; Z86.69 Personal history of other diseases of the nervous system and sense organs
CPT/HCPCS: 70551